=== PATIENT | female | born 1950 | race Caucasian/White ===

== ENCOUNTER → 2023-01-09 13:48 | Outpatient (BNVA) | payer MEDICARE, MEDICAID, SELFPAY | PROVIDERS: PCP Internal Medicine; Visit Provider Student in an Organized Health Care Education/Training Program | DX: M32.9 Systemic lupus erythematosus, unspecified (principal); M81.0 Age-related osteoporosis without current pathological fracture; D68.61 Antiphospholipid syndrome; M25.541 Pain in joints of right hand; Z79.899 Other long term (current) drug therapy | CPT/HCPCS: 99202 ==

== ENCOUNTER 2023-03-06 10:42 | Outpatient (REF) | payer MEDICARE, SELFPAY ==
[2023-03-06 11:12] LABS: MANUAL DIFF FLAG NO
[2023-03-06 11:34] LABS: Basophils Percent Auto 0.7 % (0-2); Eosinophils Absolute Auto 0.4 X10*3/uL (0.0-0.4); Eosinophils Percent Auto 7.5 % (0-4); Hematocrit 51.5 % (37.0-47.0); Hemoglobin 17.2 g/dl (12.0-16.0); Imm Gran Abs Auto 0.01 X10*3/uL (0.00-0.03); Imm Gran Pct Auto 0.2 % (0.0-0.4); Lymphocytes Absolute Auto 1.3 X10*3/uL (1.2-4.9); Lymphocytes Percent Auto 21.4 % (20-40); Mean Corpuscular HGB Conc 33.4 g/dl (31.0-35.0); Mean Corpuscular Hemoglobin 29.8 pg (27.0-33.0); Mean Corpuscular Volume 89.1 fL (80.0-98.0); Mean Platelet Volume 9.1 fL (9.4-12.3); Monocytes Absolute Auto 0.4 X10*3/uL (0.1-1.2); Monocytes Percent Auto 6.1 % (2-11); Neutrophils Absolute Auto 3.8 x10*3/uL (2.0-8.3); Neutrophils Percent Auto 64.1 % (45-73); Platelet Count 224 X10*3/uL (160-400); Red Blood Count 5.78 X10*6/uL (4.20-5.50); Red Cell Distribution Width 12.2 % (11.0-16.0); White Blood Count 5.9 X10*3/uL (4.8-10.8)
[2023-03-06 12:40] LABS: Alanine Aminotransferase 21 U/L (0-31); Albumin Level 3.5 g/dL (3.5-5.0); Alkaline Phosphatase 120 U/L (39-117); Anion Gap 12 (12-20); Aspartate Amino Transferase 25 U/L (5-31); Bilirubin Total 1.1 mg/dL (0.0-1.0); Blood Urea Nitrogen 13 mg/dL (9-16); Calcium 9.6 mg/dL (8.4-10.2); Carbon Dioxide 26 mmol/L (22-29); Chloride 108 mmol/L (96-108); Estimated Glomerular Filt Rate > 60; Glucose Random 101 mg/dL (60-115); Potassium 4.2 mmol/L (3.3-5.1); Sodium 142 mmol/L (135-145); Total Protein 6.5 g/dL (6.5-8.0); Uric Acid 4.8 mg/dL (2.4-5.7)
[2023-03-07 08:15] LABS: HBc Num1 0.06 S/CO (0.00-0.79); HBsAGNum1 0.44 S/CO (0.00-0.99); Hepatitis A Antibody IgM 0.16 Index (0-0.79); Hepatitis B Core Antibody Nonreactive (Nonreactive); Hepatitis B Surface Antigen Negative (Negative); ~HepC Num1 0.09 S/CO (0.00-0.79); ~Hepatitis A Antibody IgM Nonreactive (Nonreactive); ~Hepatitis B Surface Antibody NONREACTIVE (Nonreactive); ~Hepatitis C Antibody Nonreactive (Nonreactive)
[2023-03-07 11:04] LABS: Complement C3 106 mg/dL (83-193)
[2023-03-10 11:29] LABS: Cyclic Citrullinated Peptide <16 UNITS
[2023-03-10 21:03] LABS: Anti DNA DS Antibody 15 IU/mL; Antibody to SS-A Antigen <1.0 NEG AI (<1.0 NEG); Antibody to SS-B Antigen <1.0 NEG AI (<1.0 NEG); SM/Ribonucleoprotein Ab <1.0 NEG AI (<1.0 NEG); Smith Protein <1.0 NEG AI (<1.0 NEG)
[2023-03-11 22:38] LABS: Prot Elec - Albumin 4.1 g/dL (3.8-4.8); Prot Elec - Alpha1 0.3 g/dL (0.2-0.3); Prot Elec - Alpha2 0.7 g/dL (0.5-0.9); Prot Elec - Beta 1 0.4 g/dL (0.4-0.6); Prot Elec - Beta 2 0.2 g/dL (0.2-0.5); Prot Elec - Gamma 0.6 g/dL (0.8-1.7); Prot Elec - Total Protein 6.3 g/dL (6.1-8.1)
[2023-03-12 14:57] LABS: IgA 196 mg/dL (70-320); IgG 585 mg/dL (600-1540); IgM 45 mg/dL (50-300)
[2023-03-12 19:38] LABS: Cardiolipin IgG Ab <2.0 GPL-U/mL; Cardiolipin IgM Ab <2.0 MPL-U/mL
[2023-03-14 13:19] LABS: DNAds, Crithidia Antibody Positive (Negative)
[2023-03-14 13:23] LABS: Anti Nuclear Antibody Pattern Nuclear, Homogeneous; Anti Nuclear Antibody Screen POSITIVE (NEGATIVE)
[2023-03-15 08:18] LABS: Beta-2 Glycoprotein IgA <2.0 U/mL (<20.0); Beta-2 Glycoprotein IgG <2.0 U/mL (<20.0); Beta-2 Glycoprotein IgM <2.0 U/mL (<20.0)
== END 2023-03-06 10:43 | disposition home or self-care (01) ==
LOC: HO.LAB 10:42
PROVIDERS: Visit Provider Student in an Organized Health Care Education/Training Program
DX: D68.61 Antiphospholipid syndrome (principal); M32.9 Systemic lupus erythematosus, unspecified; M10.9 Gout, unspecified; M25.541 Pain in joints of right hand; Z11.59 Encounter for screening for other viral diseases; Z11.7 Encounter for testing for latent tuberculosis infection; Z72.89 Other problems related to lifestyle
CPT/HCPCS: 36415; 80053; 82784; 84165; 84550; 85025; 85597; 85598; 85613; 85652; 85670; 85730; 86038; 86039; 86140; 86146; 86147; 86160; 86200; 86225; 86235; 86255; 86334; 86431; 86481; 86704; 86706; 86709; 86803; 87340

== ENCOUNTER 2023-03-14 10:55 | Outpatient (REF) | payer MEDICARE, SELFPAY ==
--- NOTE | ~2023-03-14 | MM_ITS ---
EXAMINATION: BONE DENSITOMETRY CLINICAL INDICATION: Age-related osteoporosis without current pathological fracture. COMPARISON: This is the patient's baseline examination. TECHNIQUE: Using a [employer] DXA System (software version: 13.1) manufactured by [employer], dual-energy x-ray absorptiometry was performed of the lumbar spine and left forearm radius 33%. The images are of good technical quality. Summary results are attached. FINDINGS: AP SPINE L1-L2 (excluding L3 and L4): The data of L1-L4 has been changed to exclude the L3 and L4 vertebral bodies, because degenerative sclerosis at these levels may cause overestimation of lumbar spine density. BMD 1.737 g/cm2, Z-score 5.4, T-score 4.8, normal. RIGHT FEMUR, NECK: BMD 0.886 g/cm2, Z-score 0.1, T-score -1.1, osteopenia. RIGHT FEMUR, TOTAL: BMD 0.877 g/cm2, Z-score -0.1, T-score -1.0, normal. IDENTIFIED RISK FACTORS: Recurrent falls, history of fracture (adult). Early menopause, secondary osteoporosis, hysterectomy, bilateral oophorectomy, anticonvulsants, glucocorticoids (chronic). HISTORY OF FRACTURE: Other. Femur/hip. MEDICATIONS: Calcium supplements or multivitamin, vitamin D. MM/XR DEXA axial skeleton IMPRESSION: 1. DIAGNOSIS: Osteopenia based on the lowest T-score value of -1.1 in the femoral neck applying World Health Organization criteria. 2. 10-YEAR FRACTURE RISK PREDICTION, FRAX: Major osteoporotic fracture (clinical spine, forearm, hip or shoulder) 21.6%. Hip fracture 3.5%. 3. Treatment Recommendations: NOF guidelines recommend consideration for treatment in postmenopausal women and men age 50 and older presenting with the following: -A hip or vertebral (clinical or morphometric) fracture. -T-score less than or equal to -2.5 at the femoral neck or spine after appropriate evaluation to exclude secondary causes. -Low bone mass at the hip or spine and a 10-year fracture probability by FRAX of greater than or equal to 3% for hip fracture or greater than or equal to 20% for major osteoporotic fracture based on the [place] adapted WHO algorithm. 4. Other Recommendations: All treatment decisions require clinical judgment and consideration of individual patient factors, including patient preferences, comorbidities, previous drug use, risk factors not captured in the FRAX model (e.g. frailty, falls, vitamin D deficiency, increased bone turnover, interval significant decline in bone density) and possible under or overestimation of fracture risk by FRAX. Additional medical evaluation for secondary cause of low bone mineral density may be appropriate. FUTURE SCAN RECOMMENDATION: People with diagnosed cases of osteoporosis or at high risk for fracture should have regular bone mineral density tests. For patients eligible for Medicare, routine testing is allowed once every 2 years. The testing frequency can be increased to one year for patients who have rapidly progressing disease, those who are receiving or discontinuing medical therapy to restore bone mass, or have additional risk factors.
[2023-03-14 12:38] LABS: Appearance Urine Clear; Color Urine Yellow; Glucose Urine UA Negative (Negative); Leukocyte Esterase Urine Trace (Negative); Nitrite Urine Negative (Negative); PH 5.5 (5.0-9.0); UMIC TRIGGER UA YES; Urine Blood Small (1+) (Negative); Urine Ketones Negative (Negative); Urine Protein Negative (Neg-Trace)
[2023-03-14 12:40] LABS: Bacteria Urine None Seen (None Seen); Hyaline Casts Urine 0-2 /LPF (0-2); RBC Urine >20 /HPF (0-2); Squamous Epithelial Cell Urine 0-2 /HPF (0-2); WBC Urine 0-5 /HPF (0-5)
[2023-03-14 13:15] LABS: Creatinine Urine 121.81 mg/dL; Protein/Creatinine Ratio, Ur 0.07 (<0.2); Total Protein Urine Random 8 mg/dL (<12)
== END 2023-03-14 10:56 | disposition home or self-care (01) ==
LOC: HO.MAMMO 10:55
PROVIDERS: Visit Provider Student in an Organized Health Care Education/Training Program
DX: Z13.820 Encounter for screening for osteoporosis (principal); M81.0 Age-related osteoporosis without current pathological fracture; Z78.0 Asymptomatic menopausal state; D68.61 Antiphospholipid syndrome; M32.9 Systemic lupus erythematosus, unspecified
CPT/HCPCS: 77080; 81001; 84156

== ENCOUNTER 2023-04-10 13:54 | Outpatient (AMB) | payer MEDICARE, MEDICAID, SELFPAY ==
--- NOTE | 2023-04-10 13:56 | A.OFFVIS_ITS ---
Intake Vital Signs 04/10/23 13:57 Height 5 ft 6.5 in Weight 222 lb 10.67 oz BMI 35.4 BP 156/94 H Blood Pressure Location Rt brachial Position Sitting Pulse 91 Pulse Source Pulse Oximeter Temp 98.1 F Temp Source Skin Pulse Oximetry (%) 97 Intake Visit Reasons: SLE Intake Note: last 4 days swelling rash Ice House Supervisor Required: No Accompanied by: Self / Same As Patient Allergies azathioprine Allergy (Severe, Verified 04/10/23 13:59) Pancreatitis carbamazepine Adverse Reaction (Severe, Verified 04/10/23 13:59) Unknown diazepam [From Valium] Adverse Reaction (Severe, Verified 04/10/23 13:59) Anaphylaxis Iodinated Contrast Media Adverse Reaction (Severe, Verified 04/10/23 13:59) Angioedema, swelling, rash latex Adverse Reaction (Severe, Verified 04/10/23 13:59) Rash Penicillins Adverse Reaction (Severe, Verified 04/10/23 13:59) Anaphylaxis Sulfa (Sulfonamide Antibiotics) Adverse Reaction (Severe, Verified 04/10/23 13:59) Unknown azithromycin Adverse Reaction (Intermediate, Verified 04/10/23 13:59) Syncope, nausea gabapentin Adverse Reaction (Intermediate, Verified 04/10/23 13:59) Seizure hydrocodone Adverse Reaction (Intermediate, Verified 04/10/23 13:59) Tongue swelling hydromorphone [From Dilaudid] Adverse Reaction (Intermediate, Verified 04/10/23 13:59) Anaphylaxis leflunomide [From Arava] Adverse Reaction (Intermediate, Verified 04/10/23 13:59) Seizure cat pelt standardized allergenic ex Adverse Reaction (Unknown, Verified 04/10/23 13:59) Asthma Macrolide Antibiotics Adverse Reaction (Unknown, Unverified 04/10/23 13:59) Unknown phenytoin Adverse Reaction (Unknown, Verified 04/10/23 13:59) Angioedema Tetracyclines Adverse Reaction (Unknown, Verified 04/10/23 13:59) Unknown Benzodiazepines Adverse Reaction (Verified 04/10/23 13:59) Seizure codeine Adverse Reaction (Verified 04/10/23 13:59) bronchospasm oxycodone Adverse Reaction (Verified 04/10/23 13:59) Anaphylaxis leflunomide Adverse Reaction (Intermediate, Uncoded 04/10/23 14:20) seizures Medication List - Last Reconciled 04/10/23 by Katya Mandel MD allopurinol 100 mg PO DAILY amlodipine 0 mg PO hydroxychloroquine 400 mg PO DAILY levetiracetam 250 mg PO DAILY levothyroxine (Synthroid) 125 mcg PO DAILY losartan 100 mg PO DAILY meloxicam 15 mg PO DAILY HPI HPI Comments History of Present Illness Details 72-year-old female with SLE returns for follow-up. She states that over the last 45 days she has been having an itchy skin rash on her hands. Patient think of a precipitating factor. There has been no change in her environment. No new laundry detergent,.. Etc. she continues to have joint pains affecting her hands, wrists. She takes meloxicam 15 mg daily. Initial history: This is a 72-year-old female with complex past medical history who presents as a new patient. She used to follow-up with a truck driver supervisor in [place]. Patient states that she went to the hospital when she was 16 for a fever and she was initially diagnosed with leukemia, afterwards she was told that this was likely her initial manifestation of lupus. Patient states that she has diffuse body aches and rashes related to SLE. She was on prednisone and methotrexate for about 10 years and gained significant amount of weight. She had been on hydroxychloroquine consistently since 2002. She was tried on Imuran for a few weeks and had a severe reaction, had to go to the hospital. She also stated that she was diagnosed with ulcerative colitis and was on treatment for years. Patient also stated that she fractured her left hip. Patient had 4 pregnancies, 3 miscarriages and the 4th resulted in a normal delivery. Her child however had clubfeet. Patient has diffuse pain especially of her hands, elbows, shoulders, knees. She takes meloxicam daily. [facility] Medical History (Updated 04/11/23 @ 07:28 by Katya Mandel MD) Benign essential hypertension Brachial (cervical) neuritis Cervical cancer Degenerative joint disease Difficulty speaking Dysphagia Edema of extremity Gout Gouty arthropathy Hip pain History of malignant neoplasm of thyroid Hyperlipemia Idiopathic peripheral autonomic neuropathy Inflammatory disorder of jaw Joint pain of ankle and foot Kidney stone on right side Low back pain Lupus erythematosus Mononeuritis Mycosis Neck pain Noninfectious gastroenteritis Peripheral vascular disease Postoperative hypothyroidism Screening for viral disease Sprain of foot Status epilepticus, generalized convulsive Systemic lupus erythematosus Ulcerative colitis Surgical History H/O lithotripsy History of total hysterectomy with bilateral salpingo-oophorectomy (BSO) Hx of appendectomy Hx of tonsillectomy Hx of total thyroidectomy Status post total hip replacement, left Family History Mother Hyperlipidemia Thyroid cancer Maternal Grandmother Thyroid cancer Social History Household Members: None Alcohol intake: never Patient Tobacco Use Status: Never used Tobacco Current occupational status: retired Current occupation: used to work as a psychotherapist Review of Systems Musc Reports arthralgias Skin/Breast Reports pruritus and Reports rash Physical Exam Vital Signs: Last Vital Signs Temp 98.1 F 04/10/23 13:57 Pulse 91 04/10/23 13:57 BP 156/94 H 04/10/23 13:57 Pulse Ox 97 04/10/23 13:57 BMI result Body Mass Index 35.4 Const General: cooperative and healthy appearing Nutritional Appearance: obese Orientation/consciousness: patient oriented x3 Limitations: no limitations HEENT Head: Yes normocephalic and Yes atraumatic Resp Effort & Inspection: normal respiratory effort and able to speak in complete sentences Cardio Rate: regular rate GI Inspection: No distended Palpation (GI): Soft to palpation and nontender Skin Other: Multiple areas of skin excoriation were patient's scratched on hands Neuro General: patient oriented x3 Extrem Other: Osteoarthritic changes of both hands with prominent Heberden's and Theresa's nodes Right wrist pain with full flexion extension Right elbow pain with full flexion and extension Assessment & Plan Assessment & Plan (1) Systemic lupus erythematosus: Comment: SLE( characterized by inflammatory arthritis, positive dsDNA?) methotrexate for 8 years, stopped in 2016 out of concern for osteopenia Imuran caused pancreatitis.? 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 Doing fairly well overall with regards to her SLE. Continues to have a positive dsDNA. But there are no cytopenias, no evidence of nephritis. Continue hydroxychloroquine 4 on mg daily Labs before next visit in 3 months (2) Osteoporosis: Comment: DEXA 03/23 L-spine T-score 4.8 Right femoral neck T-score-1.1 Right femur total -1.0 Code(s): M81.0 - Age-related osteoporosis without current pathological fracture Qualifiers: Osteoporosis type: age-related Presence of current pathological fracture: with current pathological fracture Encounter type: initial encounter Qualified Code(s): M80.00XA - Age-related osteoporosis with current pathological fracture, unspecified site, initial encounter for fracture Plan: History of left hip fracture 2018, this is likely osteoporotic. as patient had been on steroids for decades. DEXA scan shows osteopenia. However given history of osteoporosis fracture. Patient needs to be started on antiresorptive agent. Discussed risks and benefits of alendronate. Start alendronate 70 mg once weekly. (3) Long-term use of hydroxychloroquine: Code(s): Z79.899 - Other director long term care (current) drug therapy Plan: Discussed risks of retinopathy with hydroxychloroquine. Follow-up with ophthalmology (4) Rash and nonspecific skin eruption: Code(s): R21 - Rash and other nonspecific skin eruption Plan: Itchy skin rash on her hands. Follow-up with Derm or allergy/immunology Plan I spent 26 minutes reviewing patient's chart, evaluating patient, ordering diagnostic workup, counseling patient and documenting in the chart Orders: Orders Ferritin 3 Months E83.19 - Other disorders of iron metabolism IRON PROFILE 3 Months E83.19 - Other disorders of iron metabolism Transferrin 3 Months E83.19 - Other disorders of iron metabolism Comprehensive Met. Panel 3 Months M32.9 - Systemic lupus erythematosus, unspecified C Reactive Protein 3 Months M32.9 - Systemic lupus erythematosus, unspecified Protein Creatinine Ratio, Ur 3 Months M32.9 - Systemic lupus erythematosus, unspecified Complete Blood Count Auto Diff 3 Months M32.9 - Systemic lupus erythematosus, unspecified Erythrocyte Sedimentation Rate 3 Months M32.9 - Systemic lupus erythematosus, unspecified Complement C3 3 Months M32.9 - Systemic lupus erythematosus, unspecified Complement C4 3 Months M32.9 - Systemic lupus erythematosus, unspecified Anti DNA DS Antibody 3 Months M32.9 - Systemic lupus erythematosus, unspecified DNA Double Stranded-Crithidia 3 Months M32.9 - Systemic lupus erythematosus, unspecified UA w Microscopic 3 Months M32.9 - Systemic lupus erythematosus, unspecified Medications: New hydroxychloroquine 400 mg (2 x 200 mg) PO DAILY 180 tabs 1RF alendronate 70 mg PO QWEEK 12 tabs 1RF alendronate Take 1 tab once weekly, 1st thing in the morning, with plenty of water (at least 6 oz) and remain upright for 30 minutes 70 mg PO QWEEK 12 tabs 1RF Coding Level of Care Code Est Pt Level 4 (57303) Diagnoses Systemic lupus erythematosus M32.19 Systemic lupus erythematosus type: unspecified Systemic lupus erythematosus organ involvement: other Osteoporosis M80.00XA Osteoporosis type: age-related Presence of current pathological fracture: with current pathological fracture Encounter type: initial encounter Long-term use of hydroxychloroquine Z79.899 Rash and nonspecific skin eruption R21
[2023-04-10 13:57] VITALS: BP 156/94; PULSE 91; TEMP 36.7; O2SAT 97; BMI 35.4
== END 2023-04-10 14:46 | disposition home or self-care (01) ==
PROVIDERS: PCP Internal Medicine; Visit Provider Student in an Organized Health Care Education/Training Program
DX: M32.19 Other organ or system involvement in systemic lupus erythematosus (principal); M80.00XA Age-related osteoporosis with current pathological fracture, unspecified site, initial encounter for fracture; Z79.899 Other long term (current) drug therapy; R21 Rash and other nonspecific skin eruption
CPT/HCPCS: 99214

== ENCOUNTER → 2023-04-10 13:54 | Outpatient (BNVA) | payer MEDICARE, MEDICAID, SELFPAY | PROVIDERS: Visit Provider Student in an Organized Health Care Education/Training Program | DX: M32.19 Other organ or system involvement in systemic lupus erythematosus (principal); R21 Rash and other nonspecific skin eruption; M80.052D Age-related osteoporosis with current pathological fracture, left femur, subsequent encounter for fracture with routine healing; Z79.899 Other long term (current) drug therapy | CPT/HCPCS: 99212 ==

== ENCOUNTER 2023-07-17 13:52 | Outpatient (AMB) | payer MEDICARE, MEDICAID, SELFPAY ==
[2023-07-17 13:53] VITALS: BP 146/76; PULSE 87; TEMP 36.6; O2SAT 98; BMI 33.6
--- NOTE | 2023-07-17 13:53 | A.OFFVIS_ITS ---
Intake Vital Signs 07/17/23 13:53 Height 5 ft 6.5 in Weight 211 lb 10.3 oz BMI 33.6 BP 146/76 H Blood Pressure Location Rt brachial Position Sitting Pulse 87 Pulse Source Pulse Oximeter Temp 97.8 F Temp Source Skin Pulse Oximetry (%) 98 Intake Visit Reasons: SLE Intake Note: Pt last seen 04/10/23, presents today for follow up and test results. Plaquenil 400mg daily, alendronate weekly. Radiologic Therapist Required: No Accompanied by: Self / Same As Patient Allergies azathioprine Allergy (Severe, Verified 07/17/23 14:00) Pancreatitis carbamazepine Adverse Reaction (Severe, Verified 07/17/23 14:00) Unknown diazepam [From Valium] Adverse Reaction (Severe, Verified 07/17/23 14:00) Anaphylaxis Iodinated Contrast Media Adverse Reaction (Severe, Verified 07/17/23 14:00) Angioedema, swelling, rash latex Adverse Reaction (Severe, Verified 07/17/23 14:00) Rash Penicillins Adverse Reaction (Severe, Verified 07/17/23 14:00) Anaphylaxis Sulfa (Sulfonamide Antibiotics) Adverse Reaction (Severe, Verified 07/17/23 14:00) Unknown azithromycin Adverse Reaction (Intermediate, Verified 07/17/23 14:00) Syncope, nausea gabapentin Adverse Reaction (Intermediate, Verified 07/17/23 14:00) Seizure hydrocodone Adverse Reaction (Intermediate, Verified 07/17/23 14:00) Tongue swelling hydromorphone [From Dilaudid] Adverse Reaction (Intermediate, Verified 07/17/23 14:00) Anaphylaxis leflunomide [From Arava] Adverse Reaction (Intermediate, Verified 07/17/23 14:00) Seizure cat pelt standardized allergenic ex Adverse Reaction (Unknown, Verified 07/17/23 14:00) Asthma Macrolide Antibiotics Adverse Reaction (Unknown, Unverified 07/17/23 14:00) Unknown phenytoin Adverse Reaction (Unknown, Verified 07/17/23 14:00) Angioedema Tetracyclines Adverse Reaction (Unknown, Verified 07/17/23 14:00) Unknown Benzodiazepines Adverse Reaction (Verified 07/17/23 14:00) Seizure codeine Adverse Reaction (Verified 07/17/23 14:00) bronchospasm oxycodone Adverse Reaction (Verified 07/17/23 14:00) Anaphylaxis leflunomide Adverse Reaction (Intermediate, Uncoded 07/17/23 14:00) seizures Medication List - Last Reconciled 07/17/23 by Katya Mandel MD alendronate 70 mg PO QWEEK allopurinol 100 mg PO DAILY amlodipine 0 mg PO hydroxychloroquine 400 mg (2 x 200 mg) PO DAILY levetiracetam 250 mg PO DAILY levothyroxine (Synthroid) 125 mcg PO DAILY losartan 100 mg PO DAILY meloxicam 15 mg PO DAILY PRN NS HPI HPI Comments History of Present Illness Details 73-year-old female with SLE returns for follow-up. She states that the dizziness seems to have improved on its own. She did not stop the alendronate. She currently does not feel that she has any side effects related to it. She continues to take meloxicam daily. She continues to have some stiffness and pain in her fingers. Especially the left hand. June of 2022 she had left kidney light a trip see. Last month she had lack kidney light a trip see however she has been having pain in her left flank that she believes is related to her kidney stones. She states that she is scheduled for an abdominal ultrasound to evaluate her left kidney days. States that she gets intermittent itchy rashes. States that the neuropathy and deformity of both feet, worse on the right is getting progressively worse and affect her ability to walk. Initial history: This is a 72-year-old female with complex past medical history who presents as a new patient. She used to follow-up with a detail assembler in [place]. Patient states that she went to the hospital when she was 16 for a fever and she was initially diagnosed with leukemia, afterwards she was told that this was likely her initial manifestation of lupus. Patient states that she has diffuse body aches and rashes related to SLE. She was on prednisone and methotrexate for about 10 years and gained significant amount of weight. She had been on hydroxychloroquine consistently since 2002. She was tried on Imuran for a few weeks and had a severe reaction, had to go to the hospital. She also stated that she was diagnosed with ulcerative colitis and was on treatment for years. Patient also stated that she fractured her left hip. Patient had 4 pregnancies, 3 miscarriages and the 4th resulted in a normal delivery. Her child however had clubfeet. Patient has diffuse pain especially of her hands, elbows, shoulders, knees. She takes meloxicam daily. [facility] Medical History Peripheral vascular disease Kidney stone on right side Ulcerative colitis Cervical cancer Difficulty speaking Noninfectious gastroenteritis Lupus erythematosus Mononeuritis Low back pain Sprain of foot Brachial (cervical) neuritis Gouty arthropathy Dysphagia Edema of extremity Joint pain of ankle and foot Hip pain Idiopathic peripheral autonomic neuropathy Gout Status epilepticus, generalized convulsive Hyperlipemia Degenerative joint disease Systemic lupus erythematosus Inflammatory disorder of jaw Neck pain Mycosis Benign essential hypertension History of malignant neoplasm of thyroid Postoperative hypothyroidism Surgical History History of kidney surgery H/O lithotripsy Status post total hip replacement, left Hx of total thyroidectomy History of total hysterectomy with bilateral salpingo-oophorectomy (BSO) Hx of appendectomy Hx of tonsillectomy Family History Mother Hyperlipidemia Thyroid cancer Maternal Grandmother Thyroid cancer Social History Household Members: None Alcohol intake: never Patient Tobacco Use Status: Never used Tobacco Current occupational status: retired Current occupation: used to work as a psychotherapist Female Reproductive History Menstrual Total pregnancies: 4 Number of Living Children: 1 Ab spontaneous: 3 Review of Systems ENT Reports dizziness Musc Reports arthralgias Skin/Breast Reports pruritus and Reports rash Neuro Reports dizziness Physical Exam Vital Signs: Last Vital Signs Temp 97.8 F 07/17/23 13:53 Pulse 87 07/17/23 13:53 BP 146/76 H 07/17/23 13:53 Pulse Ox 98 07/17/23 13:53 BMI result Body Mass Index 33.6 Const General: cooperative and healthy appearing Nutritional Appearance: obese Orientation/consciousness: patient oriented x3 Limitations: no limitations HEENT Head: Yes normocephalic and Yes atraumatic Resp Effort & Inspection: normal respiratory effort and able to speak in complete sentences Cardio Rate: regular rate GI Inspection: No distended Palpation (GI): Soft to palpation and nontender Neuro General: patient oriented x3 Extrem Other: Osteoarthritic changes of both hands with prominent Heberden's and Theresa's nodes Bilateral wrist pain with full flexion extension Tap mild puffiness of left hand MCPs and PIPs, mildly tender to palpation Right foot hammertoes,, are right foot bunion Assessment & Plan Assessment & Plan (1) Systemic lupus erythematosus: Comment: SLE( characterized by inflammatory arthritis, positive dsDNA?) methotrexate for 8 years, stopped in 2016 out of concern for osteopenia Imuran caused pancreatitis.? 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 Her SLE is fairly well controlled on hydroxychloroquine 400 mg daily . She continues to have minimally active synovitis, she has a positive dsDNA. There is no significant organ involvement. There is no cytopenias, no kidney involvement. She continues to take meloxicam 15 mg daily. We discussed Benlysta infusions. Patient will think about it. Continue hydroxychloroquine 400 on mg daily Labs before next visit in 3 months (2) Osteoporosis: Comment: DEXA 03/23 L-spine T-score 4.8 Right femoral neck T-score-1.1 Right femur total -1.0 Code(s): M81.0 - Age-related osteoporosis without current pathological fracture Qualifiers: Osteoporosis type: age-related Presence of current pathological fracture: with current pathological fracture Encounter type: initial encounter Qualified Code(s): M80.00XA - Age-related osteoporosis with current pathological fracture, unspecified site, initial encounter for fracture Plan: History of left hip fracture 2018, this is likely osteoporotic. as patient had been on steroids for decades. DEXA scan shows osteopenia. She has history of left hip fracture which is likely osteoporotic pain. Alendronate started . Well tolerated. Continue alendronate 70 mg weekly (3) Long-term use of hydroxychloroquine: Code(s): Z79.899 - Other usp (current) drug therapy Plan: Discussed risks of retinopathy with hydroxychloroquine. Patient does follow-up regularly with Dr. Lamar, she does not recall whether she had testing specific for hydroxychloroquine recently. Advised patient to reach out to her multiple slide operator Plan I spent 35 minutes reviewing patient's chart, evaluating patient, ordering diagnostic workup, counseling patient and documenting in the chart Orders: Orders Comprehensive Met. Panel 3 Months M32.9 - Systemic lupus erythematosus, unspecified C Reactive Protein 3 Months M32.9 - Systemic lupus erythematosus, unspecified Complement C4 3 Months M32.9 - Systemic lupus erythematosus, unspecified DNA Double Stranded-Crithidia 3 Months M32.9 - Systemic lupus erythematosus, unspecified Protein Creatinine Ratio, Ur 3 Months M32.9 - Systemic lupus erythematosus, unspecified Ferritin 3 Months E83.19 - Other disorders of iron metabolism IRON PROFILE 3 Months E83.19 - Other disorders of iron metabolism Transferrin 3 Months E83.19 - Other disorders of iron metabolism Complete Blood Count Auto Diff 3 Months M32.9 - Systemic lupus erythematosus, unspecified Erythrocyte Sedimentation Rate 3 Months M32.9 - Systemic lupus erythematosus, unspecified Anti DNA DS Antibody 3 Months M32.9 - Systemic lupus erythematosus, unspecified Complement C3 3 Months M32.9 - Systemic lupus erythematosus, unspecified UA w Microscopic 3 Months M32.9 - Systemic lupus erythematosus, unspecified Coding Level of Care Code Est Pt Level 4 (87966) Diagnoses Systemic lupus erythematosus with other organ involvement, unspecified SLE type M32.19 Systemic lupus erythematosus type: unspecified Systemic lupus erythematosus organ involvement: other Age-related osteoporosis with current pathological fracture, initial encounter M80.00XA Osteoporosis type: age-related Presence of current pathological fracture: with current pathological fracture Encounter type: initial encounter Long-term use of hydroxychloroquine Z79.899
== END 2023-07-17 14:47 | disposition home or self-care (01) ==
PROVIDERS: PCP Nurse Practitioner Adult Health; Visit Provider Student in an Organized Health Care Education/Training Program
DX: M32.19 Other organ or system involvement in systemic lupus erythematosus (principal); M80.00XA Age-related osteoporosis with current pathological fracture, unspecified site, initial encounter for fracture; Z79.899 Other long term (current) drug therapy
CPT/HCPCS: 99214

== ENCOUNTER → 2023-07-17 13:52 | Outpatient (BNVA) | payer MEDICARE, MEDICAID, SELFPAY | PROVIDERS: PCP Internal Medicine; Visit Provider Student in an Organized Health Care Education/Training Program | DX: M32.19 Other organ or system involvement in systemic lupus erythematosus (principal); M80.00XD Age-related osteoporosis with current pathological fracture, unspecified site, subsequent encounter for fracture with routine healing; Z79.899 Other long term (current) drug therapy | CPT/HCPCS: 99212 ==

== ENCOUNTER 2023-12-08 14:49 | Outpatient (AMB) | payer MEDICARE, MEDICAID, SELFPAY ==
[2023-12-08 14:54] VITALS: BP 118/66; PULSE 92; O2SAT 97; BMI 32.2
--- NOTE | 2023-12-08 14:54 | A.OFFVIS_ITS ---
Intake Vital Signs 12/08/23 14:54 Height 5 ft 6.5 in Weight 202 lb 13.204 oz BMI 32.2 BP 118/66 Blood Pressure Location Rt brachial Position Sitting Pulse 92 Pulse Source Pulse Oximeter Pulse Oximetry (%) 97 Intake Visit Reasons: sle/CM Intake Note: Patient last seen 07/17/23 presents today for follow up and test results. S/p R 2nd toe amputation 10/23.. today she reports 3rd toe R foot pain and is worried it'll nocturnist the same way. Health Equipment Servicer Required: No Allergies azathioprine Allergy (Severe, Verified 12/08/23 15:01) Pancreatitis carbamazepine Adverse Reaction (Severe, Verified 12/08/23 15:01) Unknown diazepam [From Valium] Adverse Reaction (Severe, Verified 12/08/23 15:01) Anaphylaxis Iodinated Contrast Media Adverse Reaction (Severe, Verified 12/08/23 15:01) Angioedema, swelling, rash latex Adverse Reaction (Severe, Verified 12/08/23 15:01) Rash Penicillins Adverse Reaction (Severe, Verified 12/08/23 15:01) Anaphylaxis Sulfa (Sulfonamide Antibiotics) Adverse Reaction (Severe, Verified 12/08/23 15:01) Unknown azithromycin Adverse Reaction (Intermediate, Verified 12/08/23 15:01) Syncope, nausea gabapentin Adverse Reaction (Intermediate, Verified 12/08/23 15:01) Seizure hydrocodone Adverse Reaction (Intermediate, Verified 12/08/23 15:01) Tongue swelling hydromorphone [From Dilaudid] Adverse Reaction (Intermediate, Verified 12/08/23 15:01) Anaphylaxis leflunomide [From Arava] Adverse Reaction (Intermediate, Verified 12/08/23 15:01) Seizure cat pelt standardized allergenic ex Adverse Reaction (Unknown, Verified 12/08/23 15:01) Asthma Macrolide Antibiotics Adverse Reaction (Unknown, Unverified 12/08/23 15:01) Unknown phenytoin Adverse Reaction (Unknown, Verified 12/08/23 15:01) Angioedema Tetracyclines Adverse Reaction (Unknown, Verified 12/08/23 15:01) Unknown Benzodiazepines Adverse Reaction (Verified 12/08/23 15:01) Seizure codeine Adverse Reaction (Verified 12/08/23 15:01) bronchospasm oxycodone Adverse Reaction (Verified 12/08/23 15:01) Anaphylaxis leflunomide Adverse Reaction (Intermediate, Uncoded 12/08/23 15:01) seizures Medication List - Last Reconciled 12/08/23 by Katya Mandel MD alendronate 70 mg PO QWEEK allopurinol 100 mg PO DAILY amlodipine 0 mg PO hydroxychloroquine 400 mg (2 x 200 mg) PO DAILY levetiracetam 250 mg PO DAILY levothyroxine (Synthroid) 150 mcg PO DAILY losartan 100 mg PO DAILY meloxicam 15 mg PO DAILY PRN NS HPI HPI Comments History of Present Illness Details 73-year-old female with SLE returns for follow-up. He states that beginning of October she started having black discoloration of her right 2nd toe, then she started having swelling, erythema and pus coming out of the right 2nd toe, she was eventually admitted to [facility] and had right 2nd toe amputation. She did not receive antibiotics. She did not recall whether she had any vascular studies. She does not know whether the surgical biopsy showed any signs of infection. She states that right 3rd toe is doing similar to the right 2nd toe. Having black discoloration she is worried that the same thing would happen to the right 3rd toe. She remains on hydroxychloroquine 400 mg daily, meloxicam 15 mg daily and alendronate 70 mg weekly Initial history: This is a 72-year-old female with complex past medical history who presents as a new patient. She used to follow-up with a technical training coordinator in [place]. Patient states that she went to the hospital when she was 16 for a fever and she was initially diagnosed with leukemia, afterwards she was told that this was likely her initial manifestation of lupus. Patient states that she has diffuse body aches and rashes related to SLE. She was on prednisone and methotrexate for about 10 years and gained significant amount of weight. She had been on hydroxychloroquine consistently since 2002. She was tried on Imuran for a few weeks and had a severe reaction, had to go to the hospital. She also stated that she was diagnosed with ulcerative colitis and was on treatment for years. Patient also stated that she fractured her left hip. Patient had 4 pregnancies, 3 miscarriages and the 4th resulted in a normal delivery. Her child however had clubfeet. Patient has diffuse pain especially of her hands, elbows, shoulders, knees. She takes meloxicam daily. [facility] Medical History (Updated 12/08/23 @ 15:43 by Katya Mandel MD) Peripheral vascular disease Vasculopathy Kidney stone on right side Ulcerative colitis Cervical cancer Difficulty speaking Noninfectious gastroenteritis Lupus erythematosus Mononeuritis Low back pain Sprain of foot Brachial (cervical) neuritis Gouty arthropathy Dysphagia Edema of extremity Joint pain of ankle and foot Hip pain Idiopathic peripheral autonomic neuropathy Gout Status epilepticus, generalized convulsive Hyperlipemia Degenerative joint disease Systemic lupus erythematosus Inflammatory disorder of jaw Neck pain Mycosis Benign essential hypertension History of malignant neoplasm of thyroid Postoperative hypothyroidism Surgical History History of kidney surgery H/O lithotripsy Status post total hip replacement, left Hx of total thyroidectomy History of total hysterectomy with bilateral salpingo-oophorectomy (BSO) Hx of appendectomy Hx of tonsillectomy Family History Mother Hyperlipidemia Thyroid cancer Maternal Grandmother Thyroid cancer Social History Household Members: None Alcohol intake: never Patient Tobacco Use Status: Never used Tobacco Current occupational status: retired Current occupation: used to work as a psychotherapist Review of Systems Skin/Breast Reports skin ulcer and Reports wounds Physical Exam Vital Signs: Last Vital Signs Pulse 92 12/08/23 14:54 BP 118/66 12/08/23 14:54 Pulse Ox 97 12/08/23 14:54 BMI result Body Mass Index 32.2 Const General: cooperative and healthy appearing Nutritional Appearance: obese Orientation/consciousness: patient oriented x3 Limitations: no limitations and ambulation with cane HEENT Head: Yes normocephalic and Yes atraumatic Resp Effort & Inspection: normal respiratory effort and able to speak in complete sentences Cardio Rate: regular rate GI Inspection: No distended Palpation (GI): Soft to palpation and nontender Neuro General: patient oriented x3 Extrem Other: Osteoarthritic changes of both hands with prominent Heberden's and Theresa's nodes mild puffiness of left hand MCPs and PIPs, mildly tender to palpation Right foot hammertoes,, right foot bunion S/p right 2nd toe amputation Dark discoloration of right 3rd toe Assessment & Plan Assessment & Plan (1) Systemic lupus erythematosus: Comment: SLE( characterized by inflammatory arthritis, positive dsDNA?) methotrexate for 8 years, stopped in 2016 out of concern for osteopenia Imuran caused pancreatitis.? 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 Her SLE is fairly well controlled on hydroxychloroquine 400 mg daily. There is no significant organ involvement. There is no cytopenias, no kidney involvement. She continues to take meloxicam 15 mg daily. Continue hydroxychloroquine 400 on mg daily Labs before next visit in 4 months (2) Osteoporosis: Comment: DEXA 03/23 L-spine T-score 4.8 Right femoral neck T-score-1.1 Right femur total -1.0 Code(s): M81.0 - Age-related osteoporosis without current pathological fracture Qualifiers: Osteoporosis type: age-related Presence of current pathological fracture: with current pathological fracture Encounter type: initial encounter Qualified Code(s): M80.00XA - Age-related osteoporosis with current pathological fracture, unspecified site, initial encounter for fracture Plan: History of left hip fracture 2018, this is likely osteoporotic. as patient had been on steroids for decades. DEXA scan shows osteopenia. She has history of left hip fracture which is likely osteoporotic pain. Alendronate started 04/2023. Well tolerated. Continue alendronate 70 mg weekly (3) Long-term use of hydroxychloroquine: Code(s): Z79.899 - Other ad terminal makeup operator (current) drug therapy Plan: Discussed risks of retinopathy with hydroxychloroquine. Patient does follow-up regularly with Dr. Lamar, she does not recall whether she had testing specific for hydroxychloroquine recently. Will attempt to request records from Dr. Lamar (4) Wound of foot: Code(s): S91.309A - Unspecified open wound, unspecified foot, initial encounter Plan: Patient is s/p right 2nd toe resection for osteomyelitis. It does not look like she received antibiotics. She does not recall having any vascular studies done. She is starting to have dark discoloration of right 3rd toe. I will request records from [facility]. Will attempt to retrieve bone biopsy report Referred patient to vascular surgery and wound care (5) Peripheral vascular disease: Code(s): I73.9 - Peripheral vascular disease, unspecified Plan: Known history of peripheral vascular disease. Referred to vascular surgeon Plan I spent 35 minutes reviewing patient's chart, evaluating patient, ordering diagnostic workup, counseling patient and documenting in the chart Orders: Orders Anti DNA DS Antibody 4 Months M32.19 - Other organ or system involvement in systemic lupus erythematosus C Reactive Protein 4 Months M32.19 - Other organ or system involvement in systemic lupus erythematosus Complement C3 4 Months M32.19 - Other organ or system involvement in systemic lupus erythematosus Complement C4 4 Months M32.19 - Other organ or system involvement in systemic lupus erythematosus Erythrocyte Sedimentation Rate 4 Months M32.19 - Other organ or system involvement in systemic lupus erythematosus DNA Double Stranded-Crithidia 4 Months M32.19 - Other organ or system involvement in systemic lupus erythematosus Protein Creatinine Ratio, Ur 4 Months M32.19 - Other organ or system involvement in systemic lupus erythematosus UA w Microscopic 4 Months M32.19 - Other organ or system involvement in systemic lupus erythematosus Complete Blood Count Auto Diff 4 Months M32.19 - Other organ or system involvement in systemic lupus erythematosus Comprehensive Met. Panel 4 Months M32.19 - Other organ or system involvement in systemic lupus erythematosus Referrals Wound Care Referral S91.309A - Unspecified open wound, unspecified foot, initial encounter Vascular Surgery Referral I99.9 - Unspecified disorder of circulatory system Coding Level of Care Code Est Pt Level 5 (42164) Diagnoses Systemic lupus erythematosus with other organ involvement, unspecified SLE type M32.19 Systemic lupus erythematosus type: unspecified Systemic lupus erythematosus organ involvement: other Age-related osteoporosis with current pathological fracture, initial encounter M80.00XA Osteoporosis type: age-related Presence of current pathological fracture: with current pathological fracture Encounter type: initial encounter Long-term use of hydroxychloroquine Z79.899 Wound of foot S91.309A Peripheral vascular disease I73.9
== END 2023-12-08 15:42 | disposition home or self-care (01) ==
PROVIDERS: PCP Nurse Practitioner Adult Health; Visit Provider Student in an Organized Health Care Education/Training Program
DX: M32.19 Other organ or system involvement in systemic lupus erythematosus (principal); M80.00XA Age-related osteoporosis with current pathological fracture, unspecified site, initial encounter for fracture; Z79.899 Other long term (current) drug therapy; S91.309A Unspecified open wound, unspecified foot, initial encounter; I73.9 Peripheral vascular disease, unspecified
CPT/HCPCS: 99214

== ENCOUNTER → 2023-12-08 14:49 | Outpatient (BNVA) | payer MEDICARE, MEDICAID, SELFPAY | PROVIDERS: PCP Nurse Practitioner Adult Health; Visit Provider Student in an Organized Health Care Education/Training Program | DX: M32.19 Other organ or system involvement in systemic lupus erythematosus (principal); M80.00XD Age-related osteoporosis with current pathological fracture, unspecified site, subsequent encounter for fracture with routine healing; S91.309D Unspecified open wound, unspecified foot, subsequent encounter; I73.9 Peripheral vascular disease, unspecified; Z79.899 Other long term (current) drug therapy | CPT/HCPCS: 99212 ==

== ENCOUNTER 2023-12-23 12:57 | Outpatient (AMB) | payer MEDICARE, MEDICAID, SELFPAY ==
--- NOTE | 2023-12-23 13:00 | MHC.OFFVIS ---
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 Pt states that she has osteomyelitis and was put on a 5 day course of Antibiotics. Accompanied by: Self / Same As Patient Allergies azathioprine Allergy (Severe, Verified 12/23/23 13:07) Pancreatitis carbamazepine Adverse Reaction (Severe, Verified 12/23/23 13:07) Unknown diazepam [From Valium] Adverse Reaction (Severe, Verified 12/23/23 13:07) Anaphylaxis Iodinated Contrast Media Adverse Reaction (Severe, Verified 12/23/23 13:07) Angioedema, swelling, rash latex Adverse Reaction (Severe, Verified 12/23/23 13:07) Rash Penicillins Adverse Reaction (Severe, Verified 12/23/23 13:07) Anaphylaxis Sulfa (Sulfonamide Antibiotics) Adverse Reaction (Severe, Verified 12/23/23 13:07) Unknown azithromycin Adverse Reaction (Intermediate, Verified 12/23/23 13:07) Syncope, nausea gabapentin Adverse Reaction (Intermediate, Verified 12/23/23 13:07) Seizure hydrocodone Adverse Reaction (Intermediate, Verified 12/23/23 13:07) Tongue swelling hydromorphone [From Dilaudid] Adverse Reaction (Intermediate, Verified 12/23/23 13:07) Anaphylaxis leflunomide [From Arava] Adverse Reaction (Intermediate, Verified 12/23/23 13:07) Seizure cat pelt standardized allergenic ex Adverse Reaction (Unknown, Verified 12/23/23 13:07) Asthma Macrolide Antibiotics Adverse Reaction (Unknown, Unverified 12/23/23 13:07) Unknown phenytoin Adverse Reaction (Unknown, Verified 12/23/23 13:07) Angioedema Tetracyclines Adverse Reaction (Unknown, Verified 12/23/23 13:07) Unknown Benzodiazepines Adverse Reaction (Verified 12/23/23 13:07) Seizure codeine Adverse Reaction (Verified 12/23/23 13:07) bronchospasm oxycodone Adverse Reaction (Verified 12/23/23 13:07) Anaphylaxis leflunomide Adverse Reaction (Intermediate, Uncoded 12/23/23 13:07) seizures HPI HPI DOUGH MIXER OPERATOR: Details: Very complex 73-year-old female presents for evaluation regarding right 2nd toe amputation. She reports that this was done at [facility]. It was subsequently amputated. She has been quite concerned as she has not been on antibiotics since that time. That being said the wound has gone on to heal. She does have a history of lupus along with Charcot Madhuri tooth. She has chronic pain throughout her body and reports S fair amount of foot pain. She now presents to us for vascular evaluation. [facility] Medical History Peripheral vascular disease Vasculopathy Kidney stone on right side Ulcerative colitis Cervical cancer Difficulty speaking Noninfectious gastroenteritis Lupus erythematosus Mononeuritis Low back pain Sprain of foot Brachial (cervical) neuritis Gouty arthropathy Dysphagia Edema of extremity Joint pain of ankle and foot Hip pain Idiopathic peripheral autonomic neuropathy Gout Status epilepticus, generalized convulsive Hyperlipemia Degenerative joint disease Systemic lupus erythematosus Inflammatory disorder of jaw Neck pain Mycosis Benign essential hypertension History of malignant neoplasm of thyroid Postoperative hypothyroidism Surgical History History of kidney surgery H/O lithotripsy Status post total hip replacement, left Hx of total thyroidectomy History of total hysterectomy with bilateral salpingo-oophorectomy (BSO) Hx of appendectomy Hx of tonsillectomy Family History Mother Hyperlipidemia Thyroid cancer Maternal Grandmother Thyroid cancer Social History Household Members: None Alcohol intake: never Patient Tobacco Use Status: Never used Tobacco Current occupational status: retired Current occupation: used to work as a psychotherapist Review of Systems Const All systems reviewed & are unremarkable except as noted in HPI and below Reports no additional complaints ENT Reports Normal hearing present Card Denies chest pain, Denies chest pain at rest, Denies chest pain with activity and Denies pedal edema Resp Denies cough GI Denies abdominal pain Musc Denies abnormal gait, Denies muscle cramps and Denies radiating pain into limb Skin/Breast Denies skin ulcer and Denies wounds Neuro Reports Normal hearing present and Denies abnormal gait Psych Reports no additional complaints Physical Exam Vital Signs: BMI result Body Mass Index 32.1 Const General: cooperative, healthy appearing and comfortable Orientation/consciousness: oriented to person, oriented to place and oriented to time HEENT Head: Yes normal to inspection Neck Neck: Yes normal visual inspection Carotids: no bruits Chest Chest palpation & inspection: normal inspection of the chest Resp Effort & Inspection: normal respiratory effort and able to speak in complete sentences Auscultation: clear to auscultation bilaterally, no crackles, no rales, no rhonchi and no wheezes Cardio Other: Bilateral DP signals Rate: regular rate Rhythm: regular rhythm Heart sounds: S1 normal heart sound present and S2 normal heart sound present Bruits: no carotid bruits Peripheral pulses: Peripheral pulses 2+ throughout GI Inspection: Yes normal to inspection Skin Other: Toe amputation site has gone on to heal Wounds: no wounds Hair: normal Neuro General: oriented to person, oriented to place and oriented to time Cranial nerves: Yes CN's II-XII intact bilaterally and Yes Normal hearing present Cognition (Neuro): normal cognition Motor exam (neuro): 5/5 motor strength present throughout Extrem Other: venous exam: No significant superficial varicosities or spider telangiectasias, minimal edema General: No clubbing, No cyanosis and No edema Psych Appearance: grossly normal Mental Status: mental status grossly normal Speech and movement: Normal speech and movement present Assessment & Plan Assessment & Plan (1) PAD (peripheral artery disease): Code(s): I73.9 - Peripheral vascular disease, unspecified Category: Medical Plan: In short there is concern that the patient may have an element of peripheral vascular disease as I am not able to palpate DP or PT pulses. That being said her toe amputation site appears to be doing well it has gone on to heal. If there was underlying osteomyelitis it would not heal as well as it did. I have taken the liberty of ordering noninvasive arterial ultrasound and she will follow up with us after testing. I did provide her a fair amount of reassurance that at the current time her foot status is stable. The pain may be met multifactorial as there may be a significant neurogenic component to this as well. Patient will follow up with us after testing. Thank you for allowing us to assist in her care. Orders: Orders US arterial duplex LE BI 1 Week I73.9 - Peripheral vascular disease, unspecified Coding Level of Care Code Est Pt Level 4 (68680) Diagnoses PAD (peripheral artery disease) I73.9
[2023-12-23 13:01] VITALS: BMI 32.1
== END 2023-12-23 13:43 | disposition home or self-care (01) ==
PROVIDERS: PCP Nurse Practitioner Adult Health; Visit Provider Surgery Vascular Surgery
DX: I73.9 Peripheral vascular disease, unspecified (principal)
CPT/HCPCS: 99213

== ENCOUNTER → 2023-12-23 12:57 | Outpatient (BNVA) | payer MEDICARE, MEDICAID, SELFPAY | PROVIDERS: PCP Nurse Practitioner Adult Health; Visit Provider Surgery Vascular Surgery | DX: I73.9 Peripheral vascular disease, unspecified (principal); Z89.421 Acquired absence of other right toe(s) | CPT/HCPCS: 99212 ==

== ENCOUNTER 2023-12-31 14:23 | Outpatient (REF) | payer MEDICARE, MEDICAID, SELFPAY ==
--- NOTE | ~2023-12-31 | US_ITS ---
EXAMINATION: US arterial duplex LE BI, US REJI complete CLINICAL INFORMATION: Peripheral vascular disease, unspecified COMPARISON: None TECHNIQUE: Ankle pulse volume recordings, ankle pressure measurements and ankle brachial indices were obtained of the lower extremity arterial system bilaterally in addition to duplex Doppler techniques with wave form analysis and measurement of velocities in the common femoral, profunda femoral, superficial femoral, popliteal, tibial and peroneal arteries. The study was performed only at rest. FINDINGS: Mild calcified plaque seen throughout the bilateral lower extremities. RIGHT LE. THE RIGHT ANKLE-BRACHIAL INDEX IS: 1.06 2. SEGMENTAL PRESSURES (mmHg): Ankle: PT 176, DP 200 3. PVR WAVEFORMS: Ankle: Abnormal 4. DIRECT DUPLEX: Common femoral artery: 77 cm/s, biphasic Profunda femoris artery: 46 cm/s, biphasic Superficial femoral artery (proximal): 64 cm/s, multiphasic Superficial femoral artery (mid): 64 cm/s, multiphasic Superficial femoral artery (distal): 91 cm/s, Multiphasic Proximal Popliteal artery: 47 cm/s, multiphasic Distal popliteal artery: 52 cm/s, Multiphasic Mid posterior tibial artery: 46 cm/s, biphasic Peroneal artery: 55 cm/s, biphasic Dorsalis pedis artery: 30 cm/sec, monophasic Anterior tibial artery: 84 cm/sec, triphasic LEFT LE. THE LEFT ANKLE-BRACHIAL INDEX IS: 1.06 (higher of the DP/PT) 2. SEGMENTAL PRESSURES: Ankle: PT 200, DP 200 3. PVR WAVEFORMS: Ankle: Abnormal 4. DIRECT DUPLEX: Common femoral artery: 68 cm/s, multiphasic Profunda femoris artery: 47 cm/s, biphasic Superficial femoral artery (proximal): 77 cm/s, multiphasic Superficial femoral artery (mid): 67 cm/s, Multiphasic Superficial femoral artery (distal): 62 cm/s, Multiphasic Proximal Popliteal artery: 58 cm/s, Multiphasic Distal popliteal artery: 54 cm/s, Multiphasic Proximal posterior tibial artery: 26 cm/s, biphasic Peroneal artery: 80 cm/s, biphasic Dorsalis pedis artery: 10 cm/sec, monophasic Anterior tibial artery: 44 cm/sec, biphasic US/US arterial duplex LE BI IMPRESSION: Normal ABIs bilaterally are likely artifactual related to calcified vessels. Mild calcific plaque is noted throughout the bilateral lower arteries. No evidence of hemodynamically significant stenosis in the bilateral lower extremities.
== END 2023-12-31 14:24 | disposition home or self-care (01) ==
LOC: HO.US 14:23
PROVIDERS: PCP Family Medicine; Visit Provider Surgery Vascular Surgery
DX: I73.9 Peripheral vascular disease, unspecified (principal)
CPT/HCPCS: 93923; 93925

== ENCOUNTER 2024-01-20 08:51 | Outpatient (AMB) | payer MEDICARE, MEDICAID, SELFPAY ==
--- NOTE | 2024-01-20 09:00 | MHC.OFFVIS ---
Vital Signs 01/20/24 09:01 Height 5 ft 6.5 in Weight 202 lb BMI 32.1 Intake Visit Reasons: f/u s/p ART U/S 12/31/23 Intake Note: follow up Arterial US 12/31/23 s/p Right foot 2nd toe amp @ [facility] by Dr. Lopez, concerned about pain when stepping on right foot, states she has zapping from bottom of plantar area up to the knee. States she is using crutch for stability. Accompanied by: Self / Same As Patient Allergies azathioprine Allergy (Severe, Verified 01/20/24 09:08) Pancreatitis carbamazepine Adverse Reaction (Severe, Verified 01/20/24 09:08) Unknown diazepam [From Valium] Adverse Reaction (Severe, Verified 01/20/24 09:08) Anaphylaxis Iodinated Contrast Media Adverse Reaction (Severe, Verified 01/20/24 09:08) Angioedema, swelling, rash latex Adverse Reaction (Severe, Verified 01/20/24 09:08) Rash Penicillins Adverse Reaction (Severe, Verified 01/20/24 09:08) Anaphylaxis Sulfa (Sulfonamide Antibiotics) Adverse Reaction (Severe, Verified 01/20/24 09:08) Unknown azithromycin Adverse Reaction (Intermediate, Verified 01/20/24 09:08) Syncope, nausea gabapentin Adverse Reaction (Intermediate, Verified 01/20/24 09:08) Seizure hydrocodone Adverse Reaction (Intermediate, Verified 01/20/24 09:08) Tongue swelling hydromorphone [From Dilaudid] Adverse Reaction (Intermediate, Verified 01/20/24 09:08) Anaphylaxis leflunomide [From Arava] Adverse Reaction (Intermediate, Verified 01/20/24 09:08) Seizure cat pelt standardized allergenic ex Adverse Reaction (Unknown, Verified 01/20/24 09:08) Asthma Macrolide Antibiotics Adverse Reaction (Unknown, Unverified 01/20/24 09:08) Unknown phenytoin Adverse Reaction (Unknown, Verified 01/20/24 09:08) Angioedema Tetracyclines Adverse Reaction (Unknown, Verified 01/20/24 09:08) Unknown Benzodiazepines Adverse Reaction (Verified 01/20/24 09:08) Seizure codeine Adverse Reaction (Verified 01/20/24 09:08) bronchospasm oxycodone Adverse Reaction (Verified 01/20/24 09:08) Anaphylaxis leflunomide Adverse Reaction (Intermediate, Uncoded 01/20/24 09:08) seizures HPI HPI f/u s/p ART U/S 12/31/23: Details: Very complex 73-year-old female presents for follow-up regarding noninvasive arterial testing. She has undergone right 2nd toe amputation at [facility]. She does have a history of lupus along with Charcot Madhuri tooth. She does have chronic pain issues as well. She is actually being seen by Podiatry at [facility] by Dr. Curt Umanzor. She now presents to us for follow-up with noninvasive arterial testing. [facility] Medical History Peripheral vascular disease Vasculopathy Kidney stone on right side Ulcerative colitis Cervical cancer Difficulty speaking Noninfectious gastroenteritis Lupus erythematosus Mononeuritis Low back pain Sprain of foot Brachial (cervical) neuritis Gouty arthropathy Dysphagia Edema of extremity Joint pain of ankle and foot Hip pain Idiopathic peripheral autonomic neuropathy Gout Status epilepticus, generalized convulsive Hyperlipemia Degenerative joint disease Systemic lupus erythematosus Inflammatory disorder of jaw Neck pain Mycosis Benign essential hypertension History of malignant neoplasm of thyroid Postoperative hypothyroidism Surgical History History of kidney surgery H/O lithotripsy Status post total hip replacement, left Hx of total thyroidectomy History of total hysterectomy with bilateral salpingo-oophorectomy (BSO) Hx of appendectomy Hx of tonsillectomy Family History Mother Hyperlipidemia Thyroid cancer Maternal Grandmother Thyroid cancer Social History Household Members: None Alcohol intake: never Patient Tobacco Use Status: Never used Tobacco Current occupational status: retired Current occupation: used to work as a psychotherapist Review of Systems Const All systems reviewed & are unremarkable except as noted in HPI and below Reports no additional complaints ENT Reports Normal hearing present Card Denies chest pain, Denies chest pain at rest, Denies chest pain with activity and Denies pedal edema Resp Denies cough GI Denies abdominal pain Musc Denies abnormal gait, Denies muscle cramps and Denies radiating pain into limb Skin/Breast Denies skin ulcer and Denies wounds Neuro Reports Normal hearing present and Denies abnormal gait Psych Reports no additional complaints Physical Exam Vital Signs: BMI result Body Mass Index 32.1 Const General: cooperative, healthy appearing and comfortable Orientation/consciousness: oriented to person, oriented to place and oriented to time HEENT Head: Yes normal to inspection Neck Neck: Yes normal visual inspection Carotids: no bruits Chest Chest palpation & inspection: normal inspection of the chest Resp Effort & Inspection: normal respiratory effort and able to speak in complete sentences Auscultation: clear to auscultation bilaterally, no crackles, no rales, no rhonchi and no wheezes Cardio Rate: regular rate Rhythm: regular rhythm Heart sounds: S1 normal heart sound present and S2 normal heart sound present Bruits: no carotid bruits Peripheral pulses: Peripheral pulses 2+ throughout GI Inspection: Yes normal to inspection Skin Wounds: no wounds Hair: normal Neuro General: oriented to person, oriented to place and oriented to time Cranial nerves: Yes CN's II-XII intact bilaterally and Yes Normal hearing present Cognition (Neuro): normal cognition Motor exam (neuro): 5/5 motor strength present throughout Extrem Other: venous exam: No significant superficial varicosities or spider telangiectasias, minimal edema General: No clubbing, No cyanosis and No edema Psych Appearance: grossly normal Mental Status: mental status grossly normal Speech and movement: Normal speech and movement present Results Reviewed Results Reviewed: Noninvasive arterial testing dated 12/31/2023 demonstrates REJI on the right of 1.06 and on the left of 1.06 with multi phasic waveforms to both feet. Written report and images were reviewed. Assessment & Plan Assessment & Plan (1) PAD (peripheral artery disease): Code(s): I73.9 - Peripheral vascular disease, unspecified Category: Medical Plan: In short patient is stable from a peripheral vascular standpoint. Would continue care per Podiatry. She will follow up with us on an as-needed basis. Thank you for allowing us to assist in her care. Coding Level of Care Code Est Pt Level 4 (80558) Diagnoses PAD (peripheral artery disease) I73.9
[2024-01-20 09:01] VITALS: BMI 32.1
== END 2024-01-20 09:44 | disposition home or self-care (01) ==
PROVIDERS: PCP Family Medicine; Visit Provider Surgery Vascular Surgery
DX: I73.9 Peripheral vascular disease, unspecified (principal)
CPT/HCPCS: 99213

== ENCOUNTER → 2024-01-20 08:51 | Outpatient (BNVA) | payer MEDICARE, MEDICAID, SELFPAY | PROVIDERS: PCP Family Medicine; Visit Provider Surgery Vascular Surgery | DX: I73.9 Peripheral vascular disease, unspecified (principal) | CPT/HCPCS: 99212 ==

== ENCOUNTER 2024-04-08 10:26 | Outpatient (AMB) | payer MEDICARE, MEDICAID, SELFPAY ==
--- NOTE | 2024-04-08 10:27 | A.OFFVIS_ITS ---
Vital Signs 04/08/24 10:33 Height 5 ft 6.5 in Weight 198 lb 10.184 oz BMI 31.6 BP 118/72 Blood Pressure Location Rt brachial Position Sitting Pulse 84 Pulse Source Pulse Oximeter Pulse Oximetry (%) 98 Oxygen Delivery Method Room Air Intake Visit Reasons: SLE/LM Intake Note: Patient presents for SLE. Allergies azathioprine Allergy (Severe, Verified 04/08/24 10:30) Pancreatitis carbamazepine Adverse Reaction (Severe, Verified 04/08/24 10:30) Unknown diazepam [From Valium] Adverse Reaction (Severe, Verified 04/08/24 10:30) Anaphylaxis Iodinated Contrast Media Adverse Reaction (Severe, Verified 04/08/24 10:30) Angioedema, swelling, rash latex Adverse Reaction (Severe, Verified 04/08/24 10:30) Rash Penicillins Adverse Reaction (Severe, Verified 04/08/24 10:30) Anaphylaxis Sulfa (Sulfonamide Antibiotics) Adverse Reaction (Severe, Verified 04/08/24 10:30) Unknown azithromycin Adverse Reaction (Intermediate, Verified 04/08/24 10:30) Syncope, nausea duloxetine [From Cymbalta] Adverse Reaction (Intermediate, Verified 04/08/24 12:43) Dizziness gabapentin Adverse Reaction (Intermediate, Verified 04/08/24 10:30) Seizure hydrocodone Adverse Reaction (Intermediate, Verified 04/08/24 10:30) Tongue swelling hydromorphone [From Dilaudid] Adverse Reaction (Intermediate, Verified 04/08/24 10:30) Anaphylaxis leflunomide [From Arava] Adverse Reaction (Intermediate, Verified 04/08/24 10:30) Seizure cat pelt standardized allergenic ex Adverse Reaction (Unknown, Verified 04/08/24 10:30) Asthma Macrolide Antibiotics Adverse Reaction (Unknown, Verified 04/08/24 10:30) Unknown phenytoin Adverse Reaction (Unknown, Verified 04/08/24 10:30) Angioedema Tetracyclines Adverse Reaction (Unknown, Verified 04/08/24 10:30) Unknown Benzodiazepines Adverse Reaction (Verified 04/08/24 10:30) Seizure codeine Adverse Reaction (Verified 04/08/24 10:30) bronchospasm oxycodone Adverse Reaction (Verified 04/08/24 10:30) Anaphylaxis leflunomide Adverse Reaction (Intermediate, Uncoded 01/20/24 09:08) seizures Medication List - Last Reconciled 04/08/24 by Katya Mandel MD alendronate 70 mg PO QWEEK allopurinol 100 mg PO DAILY amlodipine 0 mg PO hydroxychloroquine 400 mg (2 x 200 mg) PO DAILY levetiracetam 250 mg PO DAILY levothyroxine (Synthroid) 150 mcg PO DAILY levothyroxine (Synthroid) 150 mcg PO DAILY losartan 100 mg PO DAILY meloxicam 15 mg PO DAILY PRN NS HPI Comments Details: 73-year-old female with SLE returns for follow-up. She continues to have problems with her right foot toes. Continues to have pain in her right foot that radiates up her right knee. She was recently evaluated by a supervisor brake repair and referred to another surgeon. She states that she may need other amputations. She was evaluated by vascular surgeon and no vascular insufficiency requiring intervention was found. He has been getting frequent UTIs and she had multiple urine samples but she was told they were contaminated. She has not had any rashes recently. Has not had any significant joint pain or swelling in her hands or feet. Does get bilateral lower thoracic back pain intermittently radiates outwards. She wants started by duloxetine 20 mg daily by her PCP, she stopped it as it was causing significant dizziness Initial history: This is a 72-year-old female with complex past medical history who presents as a new patient. She used to follow-up with a traffic administrator in [place]. Patient states that she went to the hospital when she was 16 for a fever and she was initially diagnosed with leukemia, afterwards she was told that this was likely her initial manifestation of lupus. Patient states that she has diffuse body aches and rashes related to SLE. She was on prednisone and methotrexate for about 10 years and gained significant amount of weight. She had been on hydroxychloroquine consistently since 2002. She was tried on Imuran for a few weeks and had a severe reaction, had to go to the hospital. She also stated that she was diagnosed with ulcerative colitis and was on treatment for years. Patient also stated that she fractured her left hip. Patient had 4 pregnancies, 3 miscarriages and the 4th resulted in a normal delivery. Her child however had clubfeet. Patient has diffuse pain especially of her hands, elbows, shoulders, knees. She takes meloxicam daily. [facility] Medical History Peripheral vascular disease Vasculopathy Kidney stone on right side Ulcerative colitis Cervical cancer Difficulty speaking Noninfectious gastroenteritis Lupus erythematosus Mononeuritis Low back pain Sprain of foot Brachial (cervical) neuritis Gouty arthropathy Dysphagia Edema of extremity Joint pain of ankle and foot Hip pain Idiopathic peripheral autonomic neuropathy Gout Status epilepticus, generalized convulsive Hyperlipemia Degenerative joint disease Systemic lupus erythematosus Inflammatory disorder of jaw Neck pain Mycosis Benign essential hypertension History of malignant neoplasm of thyroid Postoperative hypothyroidism Surgical History History of foot surgery History of kidney surgery H/O lithotripsy Status post total hip replacement, left Hx of total thyroidectomy History of total hysterectomy with bilateral salpingo-oophorectomy (BSO) Hx of appendectomy Hx of tonsillectomy Family History Mother Hyperlipidemia Thyroid cancer Maternal Grandmother Thyroid cancer Social History Household Members: None Alcohol intake: never Patient Tobacco Use Status: Never used Tobacco Current occupational status: retired Current occupation: used to work as a psychotherapist Female Reproductive History Menstrual Total pregnancies: 4 Number of Living Children: 1 Ab spontaneous: 3 Review of Systems Musc Reports back pain, Reports arthralgias and Reports radiating pain into limb Skin/Breast Reports wounds Physical Exam Vital Signs: Last Vital Signs Pulse 84 04/08/24 10:33 BP 118/72 04/08/24 10:33 Pulse Ox 98 04/08/24 10:33 Oxygen Delivery Method Room Air 04/08/24 10:33 BMI result Body Mass Index 31.6 Const General: cooperative and healthy appearing Nutritional Appearance: obese Orientation/consciousness: patient oriented x3 Limitations: no limitations and ambulation with cane HEENT Head: Yes normocephalic and Yes atraumatic Resp Effort & Inspection: normal respiratory effort and able to speak in complete sentences Cardio Rate: regular rate GI Inspection: No distended Palpation (GI): Soft to palpation and nontender Neuro General: patient oriented x3 Extrem Other: Osteoarthritic changes of both hands with prominent Heberden's and Theresa's nodes With no active synovitis today Right foot hammertoes,, right foot bunion S/p right 2nd toe amputation Assessment & Plan Assessment & Plan (1) Systemic lupus erythematosus: Comment: SLE( characterized by inflammatory arthritis, positive dsDNA?) methotrexate for 8 years, stopped in 2016 out of concern for osteopenia Imuran caused pancreatitis.? 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 Her SLE is fairly well controlled on hydroxychloroquine 400 mg daily. There is no significant organ involvement. There is no cytopenias, no kidney involvement. She continues to take meloxicam 15 mg daily. Continue hydroxychloroquine 400 on mg daily Labs before next visit in 4 months (2) Osteoporosis: Comment: DEXA 03/23 L-spine T-score 4.8 Right femoral neck T-score-1.1 Right femur total -1.0 Code(s): M81.0 - Age-related osteoporosis without current pathological fracture Category: Medical Qualifiers: Osteoporosis type: age-related Presence of current pathological fracture: with current pathological fracture Encounter type: initial encounter Qualified Code(s): M80.00XA - Age-related osteoporosis with current pathological fracture, unspecified site, initial encounter for fracture Plan: History of left hip fracture 2018, this is likely osteoporotic. as patient had been on steroids for decades. DEXA scan shows osteopenia. She has history of left hip fracture which is likely osteoporotic. Alendronate started 04/2023. Well tolerated. Continue alendronate 70 mg weekly (3) Long-term use of hydroxychloroquine: Comment: Eye exam okay 01/2023 Code(s): Z79.899 - Other ferry terminal agent (current) drug therapy Category: Medical Plan: Discussed risks of retinopathy with hydroxychloroquine. Continue to follow-up regularly with Dr. Brianda Sweeney I spent 35 minutes reviewing patient's chart, evaluating patient, ordering diagnostic workup, counseling patient and documenting in the chart Orders: Orders Anti DNA DS Antibody 4 Months - Other organ or system involvement in systemic lupus erythematosus Complement C3 4 Months - Other organ or system involvement in systemic lupus erythematosus C Reactive Protein 4 Months . - Other organ or system involvement in systemic lupus erythematosus Erythrocyte Sedimentation Rate 4 Months . - Other organ or system involv ement in systemic lupus erythematosus UA w Microscopic 4 Months . - Other organ or system involvement in systemic lupus erythematosus Comprehensive Met. Panel 4 Months . - Other organ or system involvement in systemic lupus erythematosus Complement C4 4 Months . - Other organ or system involvement in systemic lupus erythematosus DNA Double Stranded-Crithidia 4 Months . - Other organ or system involvement in systemic lupus erythematosus Protein Creatinine Ratio, Ur 4 Months . - Other organ or system involvement in systemic lupus erythematosus Complete Blood Count Auto Diff 4 Months . - Other organ or system involvement in systemic lupus erythematosus Coding Level of Care Code Est Pt Level 4 (36031) Diagnoses Systemic lupus erythematosus with other organ involvement, unspecified SLE type Systemic lupus erythematosus type: unspecified Systemic lupus erythematosus organ involvement: other Age-related osteoporosis with current pathological fracture, initial encounter M80.00XA Osteoporosis type: age-related Presence of current pathological fracture: with current pathological fracture Encounter type: initial encounter Long-term use of hydroxychloroquine Z79.899
[2024-04-08 10:33] VITALS: BP 118/72; PULSE 84; O2SAT 98; BMI 31.6
== END 2024-04-08 11:01 | disposition home or self-care (01) ==
PROVIDERS: PCP Family Medicine; Visit Provider Student in an Organized Health Care Education/Training Program
DX: M32.19 Other organ or system involvement in systemic lupus erythematosus (principal); M80.00XA Age-related osteoporosis with current pathological fracture, unspecified site, initial encounter for fracture; Z79.899 Other long term (current) drug therapy
CPT/HCPCS: 99214

== ENCOUNTER → 2024-04-08 10:26 | Outpatient (BNVA) | payer MEDICARE, MEDICAID, SELFPAY | PROVIDERS: PCP Family Medicine; Visit Provider Student in an Organized Health Care Education/Training Program | DX: M32.19 Other organ or system involvement in systemic lupus erythematosus (principal); M80.00XD Age-related osteoporosis with current pathological fracture, unspecified site, subsequent encounter for fracture with routine healing; Z79.899 Other long term (current) drug therapy | CPT/HCPCS: 99212 ==

== ENCOUNTER 2024-08-09 10:03 | Outpatient (AMB) | payer MEDICARE, MEDICAID, SELFPAY ==
[2024-08-09 10:10] VITALS: BP 120/68; PULSE 92; O2SAT 99; BMI 30.5
--- NOTE | 2024-08-09 10:10 | A.OFFVIS_ITS ---
Vital Signs 08/09/24 10:10 Height 5 ft 6.5 in Weight 191 lb 9.307 oz BMI 30.5 BP 120/68 Blood Pressure Location Lt brachial Position Sitting Pulse 92 Pulse Source Pulse Oximeter Pulse Oximetry (%) 99 Oxygen Delivery Method Room Air Intake Visit Reasons: SLE Intake Note: Patient last seen by doctor Katya Mandel on 04/08/24. Presents today for SLE follow up and test results. Allergies azathioprine Allergy (Severe, Verified 08/09/24 10:11) Pancreatitis carbamazepine Adverse Reaction (Severe, Verified 08/09/24 10:11) Unknown diazepam [From Valium] Adverse Reaction (Severe, Verified 08/09/24 10:11) Anaphylaxis Iodinated Contrast Media Adverse Reaction (Severe, Verified 08/09/24 10:11) Angioedema, swelling, rash latex Adverse Reaction (Severe, Verified 08/09/24 10:11) Rash Penicillins Adverse Reaction (Severe, Verified 08/09/24 10:11) Anaphylaxis Sulfa (Sulfonamide Antibiotics) Adverse Reaction (Severe, Verified 08/09/24 10 :11) Unknown azithromycin Adverse Reaction (Intermediate, Verified 08/09/24 10:11) Syncope, nausea duloxetine [From Cymbalta] Adverse Reaction (Intermediate, Verified 08/09/24 10:11) Dizziness gabapentin Adverse Reaction (Intermediate, Verified 08/09/24 10:11) Seizure hydrocodone Adverse Reaction (Intermediate, Verified 08/09/24 10:11) Tongue swelling hydromorphone [From Dilaudid] Adverse Reaction (Intermediate, Verified 08/09/24 10:11) Anaphylaxis leflunomide [From Arava] Adverse Reaction (Intermediate, Verified 08/09/24 10:11) Seizure cat pelt standardized allergenic ex Adverse Reaction (Unknown, Verified 08/09/24 10:11) Asthma Macrolide Antibiotics Adverse Reaction (Unknown, Verified 08/09/24 10:11) Unknown phenytoin Adverse Reaction (Unknown, Verified 08/09/24 10:11) Angioedema Tetracyclines Adverse Reaction (Unknown, Verified 08/09/24 10:11) Unknown Benzodiazepines Adverse Reaction (Verified 08/09/24 10:11) Seizure codeine Adverse Reaction (Verified 08/09/24 10:11) bronchospasm oxycodone Adverse Reaction (Verified 08/09/24 10:11) Anaphylaxis leflunomide Adverse Reaction (Intermediate, Uncoded 08/09/24 10:11) seizures Medication List - Last Reconciled 08/09/24 by Katya Mandel MD alendronate 70 mg PO QWEEK allopurinol 100 mg PO DAILY amlodipine 0 mg PO hydroxychloroquine 400 mg (2 x 200 mg) PO DAILY levetiracetam 250 mg PO DAILY levothyroxine (Synthroid) 150 mcg PO DAILY levothyroxine (Synthroid) 150 mcg PO DAILY losartan 100 mg PO DAILY meloxicam 15 mg PO DAILY PRN NS HPI Comments Details: 74-year-old female with SLE returns for follow-up. She had another right foot surgery involving her right 2nd toe 2 months ago. She states that she feels that her toes change color sometimes. She has shooting pain that arises from between her right 3rd and 4th toes when she steps on it that shoots up into her right thigh. She has been having dizziness. He denies any skin rashes. Denies any swollen joints. She feels achy when she runs out of meloxicam. Initial history: This is a 72-year-old female with complex past medical history who presents as a new patient. She used to follow-up with a flexographic press plate setter in [place]. Patient states that she went to the hospital when she was 16 for a fever and she was initially diagnosed with leukemia, afterwards she was told that this was likely her initial manifestation of lupus. Patient states that she has diffuse body aches and rashes related to SLE. She was on prednisone and methotrexate for about 10 years and gained significant amount of weight. She had been on hydroxychloroquine consistently since 2002. She was tried on Imuran for a few weeks and had a severe reaction, had to go to the hospital. She also stated that she was diagnosed with ulcerative colitis and was on treatment for years. Patient also stated that she fractured her left hip. Patient had 4 pregnancies, 3 miscarriages and the 4th resulted in a normal delivery. Her child however had clubfeet. Patient has diffuse pain especially of her hands, elbows, shoulders, knees. She takes meloxicam daily. [facility] Medical History Peripheral vascular disease Vasculopathy Kidney stone on right side Ulcerative colitis Cervical cancer Difficulty speaking Noninfectious gastroenteritis Lupus erythematosus Mononeuritis Low back pain Sprain of foot Brachial (cervical) neuritis Gouty arthropathy Dysphagia Edema of extremity Joint pain of ankle and foot Hip pain Idiopathic peripheral autonomic neuropathy Gout Status epilepticus, generalized convulsive Hyperlipemia Degenerative joint disease Systemic lupus erythematosus Inflammatory disorder of jaw Neck pain Mycosis Benign essential hypertension History of malignant neoplasm of thyroid Postoperative hypothyroidism Surgical History History of foot surgery History of kidney surgery H/O lithotripsy Status post total hip replacement, left Hx of total thyroidectomy History of total hysterectomy with bilateral salpingo-oophorectomy (BSO) Hx of appendectomy Hx of tonsillectomy Family History Mother Hyperlipidemia Thyroid cancer Maternal Grandmother Thyroid cancer Social History Household Members: None Alcohol intake: never Patient Tobacco Use Status: Never used Tobacco Current occupational status: retired Current occupation: used to work as a psychotherapist Female Reproductive History Menstrual Total pregnancies: 4 Number of Living Children: 1 Ab spontaneous: 3 Review of Systems ENT Reports dizziness Musc Reports arthralgias and Reports radiating pain into limb Neuro Reports dizziness Physical Exam Vital Signs: Last Vital Signs Pulse 92 08/09/24 10:10 BP 120/68 08/09/24 10:10 Pulse Ox 99 08/09/24 10:10 Oxygen Delivery Method Room Air 08/09/24 10:10 BMI result Body Mass Index 30.5 Const General: cooperative and healthy appearing Nutritional Appearance: obese Orientation/consciousness: patient oriented x3 Limitations: no limitations and ambulation with cane HEENT Head: Yes normocephalic and Yes atraumatic Resp Effort & Inspection: normal respiratory effort and able to speak in complete sentences Cardio Rate: regular rate GI Inspection: No distended Palpation (GI): Soft to palpation and nontender Neuro General: patient oriented x3 Extrem Other: Osteoarthritic changes of both hands with prominent Heberden's and Theresa's nodes With no active synovitis today Right foot hammertoes,, right foot bunion S/p right 2nd toe amputation Assessment & Plan Assessment & Plan (1) Systemic lupus erythematosus: Comment: SLE( characterized by inflammatory arthritis, positive dsDNA?) methotrexate for 8 years, stopped in 2016 out of concern for osteopenia Imuran caused pancreatitis.? 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 Her SLE is fairly well controlled on hydroxychloroquine 400 mg daily. On exam I do not see any signs suggestive of active SLE. She continues to take meloxicam 15 mg daily. Continue hydroxychloroquine 400 on mg daily Labs before next visit in 4 months (2) Osteoporosis: Comment: DEXA 03/23 L-spine T-score 4.8 Right femoral neck T-score-1.1 Right femur total -1.0 Code(s): M81.0 - Age-related osteoporosis without current pathological fracture Category: Medical Qualifiers: Osteoporosis type: age-related Presence of current pathological fracture: with current pathological fracture Encounter type: initial encounter Qualified Code(s): M80.00XA - Age-related osteoporosis with current pathological fracture, unspecified site, initial encounter for fracture Plan: History of left hip fracture 2018, this is likely osteoporotic. as patient had been on steroids for decades. DEXA scan shows osteopenia. She has history of left hip fracture which is likely osteoporotic. Alendronate started 04/2023. Well tolerated. Continue alendronate 70 mg weekly (3) Long-term use of hydroxychloroquine: Comment: Eye exam okay 01/2023 Code(s): Z79.899 - Other retirement (current) drug therapy Category: Medical Plan: Discussed risks of retinopathy with hydroxychloroquine. Continue to follow-up regularly with Dr. Lamar (4) NSAID long-term use: Code(s): Z79.1 - vermin exterminator (current) use of non-steroidal anti-inflammatories (NSAID) Category: Medical Plan: Discussed risks of long-term NSAID use including GI, nephro and cardiotoxicity. Patient is aware. However it does help her quality of life significantly. We will monitor her labs periodically Plan I spent 30 minutes reviewing patient's chart, evaluating patient, ordering diagnostic workup, counseling patient and documenting in the chart Orders: Orders Complement C4 4 Months M3. - Other organ or system involvement in systemic lupus erythematosus Erythrocyte Sedimentation Rate 4 Months M3. - Other organ or system involvement in systemic lupus erythematosus DNA Double Stranded-Crithidia 4 Months M3. - Other organ or system involvement in systemic lupus erythematosus UA w Microscopic 4 Months M3. - Other organ or system involvement in s ystemic lupus erythematosus Complete Blood Count Auto Diff 4 Months . - Other organ or system involvement in systemic lupus erythematosus Comprehensive Met. Panel 4 Months . - Other organ or system involvement in systemic lupus erythematosus Anti DNA DS Antibody 4 Months . - Other organ or system involvement in systemic lupus erythematosus Complement C3 4 Months . - Other organ or system involvement in systemic lupus erythematosus C Reactive Protein 4 Months . - Other organ or system involvement in systemic lupus erythematosus Protein Creatinine Ratio, Ur 4 Months . - Other organ or system involvement in systemic lupus erythematosus Coding Level of Care Code Est Pt Level 4 (97794) Diagnoses Systemic lupus erythematosus with other organ involvement, unspecified SLE type . Systemic lupus erythematosus type: unspecified Systemic lupus erythematosus organ involvement: other Age-related osteoporosis with current pathological fracture, initial encounter M80.00XA Osteoporosis type: age-related Presence of current pathological fracture: with current pathological fracture Encounter type: initial encounter Long-term use of hydroxychloroquine Z79.899 NSAID long-term use Z79.1
--- OUTSIDE RECORDS SUMMARY | 2024-08-11 14:20 | XMS_ITS | Data Portability ---
Author Organization [employer] [employer] [facility] Address [address] [place] [address] Assessment Encounter Date Assessment Date Assessment LastModified by Organization Details LastModified Time 10/21/2023 10/21/2023 I provided real -time medical direction via phone for this encounter, and was available for additional phone based assistance as needed. I have reviewed and agree with the Assessment and Plan as documented by the Vice President Fixed Income. We discussed the diagnostic uncertainty of home visits and the risk associated with this..The patient given the opportunity to ask questions. Advised need for evaluation in the ED-given her list of allergies she will likely need intravenous antibiotics - i.e.: Vancomycin -I suggested clindamycin or doxycycline as a trial as the ciprofloxacin is not working and the patient has an appointment with [facility], with the safe and vault service mechanic( Dr. Mascorro) tomorrow. The patient states she does not think she can take either of those although they are not specifically listed on her allergy list. I did discuss w/ her PCP's covering provider (PCP is Sara Ramirez of [facility])Patient is understandably fearful with taking new or related oral antibiotics, due to prior history of anaphylaxis. With the redness shift spreading and pain increasing, and concern for osteomyelitis, and the patient needs lab work and imaging which we are unable to do at home. We felt imaging and treatment in the emergency room would be in the patient's best interest tonight-this was verbalized to the patient. My preference clinically would be for IV vancomycin, especially if radiographic studies reveal osteomyelitis has developed, but we do not have the ability to do a every 12 hour drug this service. Thus I think it would be better for the patient to go to the ER rather than waiting another day with this infection progressing, do not want the patient to develop bacteremia. I also explained, after testing if the ER decides on a p.o. antibiotic, they can give her the first dose and observe her for several hours, and it will be safer for her to be observed for a longer period of time then our service is able to do -she verbalized understanding and is in agreement to transfer. Report called to Kaylynn PABON [email or web address] Not available 10/22/2023 11:50:01 Plan of Treatment Reminders Order Date Submit Date Provider Last Modified By Organization Details Last Modified Time Details Appointments None record ed. Lab None record ed. Referral None record ed. Procedures None record ed. Surgeries None record ed. Imaging None record ed. Medication Orders None record ed. Patient TargetsNo targets recorded. Patient InstructionsNo instructions recorded. Reason for Referral None Reported. Medical Equipment None Reported. Allergies Allergen ID Allergen Name Allergen Category Reaction Reaction Severity Criticality Documentation Date Start Date Code Code System Note Provider Name and Address Organization Details Recorded Time 9617 azithromy teresa medicatio n Not available Not available Not available 06/29/2024 82885 RxNorm Not Available [facility] 04:13:46 9618 latex environme nt,medica tion Not available Not available Not available 06/29/2024 96515 91 RxNorm Not Available [facility] 4 04:13:46 9619 Medicinal product containin g penicilli n and acting as antibacte rial agent (product) medicatio n Not available Not available Not available 06/29/2024 18833 05 SNOMED Not Available [facility] 4 04:13:46 Medications Name Sig Start Date Stop Date Status Note LastModified by Organization Details LastModified Time Synthroid 150 mcg tablet TAKE 1 TABLET BY MOUTH ONCE DAILY active Not Available Not Available No t Available meloxicam 15 mg tablet TAKE 1 TABLET BY MOUTH ONCE DAILY NEEDED FOR PAIN (SCALE SCORE 4-6) active Not Available Not Available N ot Available Synthroid 125 mcg tablet TAKE 2 TABLETS BY MOUTH ONCE DAILY active Not Available Not Available No t Available alendronate 70 mg tablet TAKE 1 TABLET BY MOUTH ONCE A WEEK ON AN EMPTY STOMACH IN THE MORNING WITH PLENTY OF WATER(AT LEAST 6 OUNCES). REMAIN UPRIGHT FOR 30 MINUTES active Not Available Not Available N ot Available amlodipine 5 mg tablet TAKE 1/2 (ONE-HALF) TABLET BY MOUTH ONCE DAILY FOR 1 WEEK THEN INCREASE TO 1 TABLET DAILY active Not Available Not Available No t Available allopurinol 100 mg tablet TAKE 1 TABLET BY MOUTH ONCE DAILY DIRECTED active Not Available Not Available No t Available ciprofloxaci n 500 mg tablet TAKE 1 TABLET BY MOUTH EVERY 12 HOURS FOR 10 DAYS active Not Available Not Available Not Available Synthroid 175 mcg tablet TAKE 1 TABLET BY MOUTH ONCE DAILY active Not Available Not Available No t Available levetiraceta m 250 mg tablet TAKE 1/2 TO 1 (ONE-HALF TO ONE) TABLET BY MOUTH BEFORE BED active Not Available Not Available N ot Available olopatadine 0.1 % eye drops INSTILL 1 DROP INTO EACH EYE DAILY active Not Available Not Available No t Available hydroxychlor oquine 200 mg tablet TAKE 2 TABLETS BY MOUTH ONCE DAILY FOR A TOAL OF 400 MG active Not Available Not Available No t Available epinephrine 0.3 mg/0.3 mL injection, auto-injecto r USE DIRECTED IF SIGNS OF ANAPHYLASIX active Not Available Not Available Not Available losartan 100 mg tablet TAKE 1 TABLET BY MOUTH ONCE DAILY active Not Available Not Available No t Available nitrofuranto in monohydrate/ macrocrystal s 100 mg capsule TAKE 1 CAPSULE BY MOUTH TWICE DAILY STARTING 3 DAYS BEFORE PROCEDURE active Not Available Not Available No t Available QuickVue At-Home COVID-19 Test kit Use as Directed on the Package active Not Available Not Available Not Available Vitals Date Recorded Respiratory rate Heart rate Oxygen saturation Oxygen saturation in Arterial blood by Pulse oximetry Body temperature Systolic blood pressure Diastolic blood pressure Provider Name and Address Organization Details Last Updated DateTime 4 18 /min 87 /min 99 % 99 % 98.9 [degF] 160 mm[Hg] 98 mm[Hg] Not Available [facility] 4 16:44:40 Social History None recorded. Functional Status None recorded. Mental Status None recorded. Family History Nothing Reported. Medical History No medical history recorded. Gynecological HistoryNo gynecological history recorded. Obstetrics History GPAL:G 0 P 0 0 0 0 Past Encounters Encounter ID Performer Location Encounter Start Date Encounter Closed Date Diagnosis/Indication Diagnosis SNOMED-CT Code Diagnosis ICD10 Code [id number] Valeria Maldonado MD [facility] [address] [place] [address] 10/21/2023 16:44:05 10/22/2023 12:38:54 Cellulitis of right lower limb [id number] L03.115 Health Concerns Section Related Observation LastModified by Organization Detai ls LastModified Time None Recorded Concern Status LastModified by Organization Details LastModified Time None Recorded Advance Directives Directive None Recorded Payers Encounter Date Sequence Insurance Name Policy Number Policy Cordero Covered Member ID Cordero Member ID Guarantor Name 10/21/2023 1 [facility] - DOS ON OR AFTER 2022 - DUAL ELIGIBLE - LONG TERM OPTIONS AND ONE CARE (MEDICARE REPLACEMENT/AD VANTAGE - HMO) Ludmila Simpson [id number] Ludmila Simpson Notes Date Note Type Note Provider Name and Address Organization Details Recorded Time 10/21/2023 text/html HPI: generalized convulsive epilepsy, lupus, idiopathic peripheral autonomic neuropathy ................... ................... ................... ................... ................... ................... ................... ........ [facility] Nurse Triage Notes (Mary Jo Foster): Comments: HPI reviewed. No additional information required to process visit ................... ................... ................... ................... ................... ................... ................... ........ Vice President Fixed Income Note From Michell Malik: Upon arrival pt used a cane to walk from The door to a chair. A/O x4, pt is pink/cold/dry and not in any immediate respiratory distress. Pt states she began having ? symptoms? in her right foot, in the second toe since June. Pt states these symptoms became worse in September. At first, the toe bubbled and pt punctured it with a needle. Pt stated thick, reddish brown fluid was released. Then pt? s toe became increasingly warm, red, swollen and painful to the touch. Then pt began having pain when walking. Pt was prescribed 2 rounds of antibiotics however it has had no effect. Pt states the redness has now spread to the top of her foot. Pt unsure if she has had any fevers as she takes ibuprofen for pain. Pt denies any CP, dizziness, nausea, and/or diarrhea. Vitals as noted. Bilateral breath sounds clear. Pt has hx of CMT, asthma, and lupus and has MANY allergies. Pedal pulses in tact. Area of second toe is red, swollen, and hot to the touch. There is some fluid leaking from the area. Pt states 5/10 pain. [facility] contacted and due to pts hx and allergies pt was recommended to be evaluated in the ER. Pt agreed and 911 was called. [facility] called hospital to alert of pts arrival. Care was transferred to EMS and call was then cleared. Vice President [employer] Allergies: Azithromycin, Latex, Penicillin ................... ................... ................... ................... ................... ................... ................... ........ Disposition: FulfilledSEGMD:Bryanna ent with multiple significant allergies. In addition to above she has [id number] , with chronic foot pain/numbness and tingling. She was prescribed ciprofloxacin for 7 days on 09/22 and then again a 14-day supply on 10/13/2023. The toe is worsening. The redness is spreading. Patient is unsure if he has had a fever as she is on ibuprofen [id number]. She denies any history of diabetes, she denies chest pain, shortness of breath, nausea vomiting or calf pain Valeria Maldonado MD [address] [facility],[address], [place], [address], [facility] 10/22/2023 11:50:11 OBGyn Episode No OBEpisode recorded.
== END 2024-08-09 10:40 | disposition home or self-care (01) ==
PROVIDERS: PCP Family Medicine; Visit Provider Student in an Organized Health Care Education/Training Program
DX: M32.19 Other organ or system involvement in systemic lupus erythematosus (principal); M80.00XA Age-related osteoporosis with current pathological fracture, unspecified site, initial encounter for fracture; Z79.899 Other long term (current) drug therapy; Z79.1 Long term (current) use of non-steroidal anti-inflammatories (NSAID)
CPT/HCPCS: 99214

== ENCOUNTER → 2024-08-09 10:03 | Outpatient (BNVA) | payer MEDICARE, MEDICAID, SELFPAY | PROVIDERS: PCP Family Medicine; Visit Provider Student in an Organized Health Care Education/Training Program | DX: M32.19 Other organ or system involvement in systemic lupus erythematosus (principal); M80.00XA Age-related osteoporosis with current pathological fracture, unspecified site, initial encounter for fracture; Z79.899 Other long term (current) drug therapy; Z79.1 Long term (current) use of non-steroidal anti-inflammatories (NSAID) | CPT/HCPCS: 99212 ==

== ENCOUNTER 2024-12-27 07:37 | Outpatient (AMB) | payer MEDICARE, MEDICAID, SELFPAY ==
--- NOTE | 2024-12-27 07:39 | A.OFFVIS_ITS ---
Vital Signs 12/27/24 07:46 Height 5 ft 6.5 in Weight 181 lb 10.574 oz BMI 28.9 BP 120/72 Blood Pressure Location Lt brachial Position Sitting Pulse 72 Pulse Source Pulse Oximeter Pulse Oximetry (%) 100 Oxygen Delivery Method Room Air Intake Visit Reasons: SLE/ Lupus Intake Note: Patient presents for SLE and Lupus follow up. Allergies azathioprine Allergy (Severe, Verified 12/27/24 07:42) Pancreatitis carbamazepine Adverse Reaction (Severe, Verified 12/27/24 07:42) Unknown diazepam [From Valium] Adverse Reaction (Severe, Verified 12/27/24 07:42) Anaphylaxis Iodinated Contrast Media Adverse Reaction (Severe, Verified 12/27/24 07:42) Angioedema, swelling, rash latex Adverse Reaction (Severe, Verified 12/27/24 07:42) Rash Penicillins Adverse Reaction (Severe, Verified 12/27/24 07:42) Anaphylaxis Sulfa (Sulfonamide Antibiotics) Adverse Reaction (Severe, Verified 12/27/24 07:42) Unknown azithromycin Adverse Reaction (Intermediate, Verified 12/27/24 07:42) Syncope, nausea duloxetine [From Cymbalta] Adverse Reaction (Intermediate, Verified 12/27/24 07:42) Dizziness gabapentin Adverse Reaction (Intermediate, Verified 12/27/24 07:42) Seizure hydrocodone Adverse Reaction (Intermediate, Verified 12/27/24 07:42) Tongue swelling hydromorphone [From Dilaudid] Adverse Reaction (Intermediate, Verified 12/27/24 07:42) Anaphylaxis leflunomide [From Arava] Adverse Reaction (Intermediate, Verified 12/27/24 07:42) Seizure cat pelt standardized allergenic ex Adverse Reaction (Unknown, Verified 12/27/24 07:42) Asthma Macrolide Antibiotics Adverse Reaction (Unknown, Verified 12/27/24 07:42) Unknown phenytoin Adverse Reaction (Unknown, Verified 12/27/24 07:42) Angioedema Tetracyclines Adverse Reaction (Unknown, Verified 12/27/24 07:42) Unknown Benzodiazepines Adverse Reaction (Verified 12/27/24 07:42) Seizure codeine Adverse Reaction (Verified 12/27/24 07:42) bronchospasm oxycodone Adverse Reaction (Verified 12/27/24 07:42) Anaphylaxis leflunomide Adverse Reaction (Intermediate, Uncoded 08/09/24 10:11) seizures Medication List - Last Reconciled 12/27/24 by Sudha Hernandez MD alendronate 70 mg PO QWEEK allopurinol 100 mg PO DAILY amlodipine 0 mg PO hydroxychloroquine 400 mg (2 x 200 mg) PO DAILY levetiracetam 250 mg PO DAILY levothyroxine (Synthroid) 150 mcg PO DAILY losartan 100 mg PO DAILY meloxicam 15 mg PO DAILY PRN NS HPI Comments Details: Patient is a 74-year-old female with hypertension complicated by PAD and PVD s/p right 2nd toe amputation, hypothyroidism, osteoporosis and SLE here today for follow up Interval History: Patient last seen 08/09/[address] Mandel. At that time she was following up for her lupus. Reports she has been having ongoing fevers for the past year, but has been noting the last 3 months there has been worsening fevers with temperatures as high as 102. States that she feels like her fevers occur once a week. No ulcers in the mouth or in the nose, no photosensitive/inflammatory rashes, alopecia. AM stiffness lasting about 20 mins in the AM Currently using crutches because she is is having significant right foot and right knee pain Rheumatologic History: SLE( characterized by inflammatory arthritis, positive dsDNA?) methotrexate for 8 years, stopped in 2016 out of concern for osteopenia Imuran caused pancreatitis.? 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 Mandel: This is a 72-year-old female with complex past medical history who presents as a new patient. She used to follow-up with a call or contact centre coach in [place]. Patient states that she went to the hospital when she was 16 for a fever and she was initially diagnosed with leukemia, afterwards she was told that this was likely her initial manifestation of lupus. Patient states that she has diffuse body aches and rashes related to SLE. She was on prednisone and methotrexate for about 10 years and gained significant amount of weight. She had been on hydroxychloroquine consistently since 2002. She was tried on Imuran for a few weeks and had a severe reaction, had to go to the hospital. She also stated that she was diagnosed with ulcerative colitis and was on treatment for years. Patient also stated that she fractured her left hip. Patient had 4 pregnancies, 3 miscarriages and the 4th resulted in a normal delivery. Her child however had clubfeet. Patient has diffuse pain especially of her hands, elbows, shoulders, knees. She takes meloxicam daily. Osteoporosis based on DEXA showing Osteopenia with left hip fracture DEXA 03/23 L-spine T-score 4.8 Right femoral neck T-score-1.1 Right femur total -1.0 Alendronate 04/2023 Current Rheumatology Medication(s): Alendronate 70g weekly PO Plaquenil 200mg bid [facility] Medical History Peripheral vascular disease Vasculopathy Kidney stone on right side Ulcerative colitis Cervical cancer Difficulty speaking Noninfectious gastroenteritis Lupus erythematosus Mononeuritis Low back pain Sprain of foot Brachial (cervical) neuritis Gouty arthropathy Dysphagia Edema of extremity Joint pain of ankle and foot Hip pain Idiopathic peripheral autonomic neuropathy Gout Status epilepticus, generalized convulsive Hyperlipemia Degenerative joint disease Systemic lupus erythematosus Inflammatory disorder of jaw Neck pain Mycosis Benign essential hypertension History of malignant neoplasm of thyroid Postoperative hypothyroidism Surgical History History of foot surgery History of kidney surgery H/O lithotripsy Status post total hip replacement, left Hx of total thyroidectomy History of total hysterectomy with bilateral salpingo-oophorectomy (BSO) Hx of appendectomy Hx of tonsillectomy Family History Mother Hyperlipidemia Thyroid cancer Maternal Grandmother Thyroid cancer Social History Household Members: None Alcohol intake: never Patient Tobacco Use Status: Never used Tobacco Current occupational status: retired Current occupation: used to work as a psychotherapist Review of Systems Const Details: Review of Systems Constitutional: Denies fever, chills, weight loss ENT: Denies vision changes, eye pain or eye redness, dental caries, dry mouth GI: Denies nausea, vomiting, diarrhea, abdominal pain, change in BM Pulm: Denies SOB, ESQUIVEL, hemoptysis, wheezing Cards: Denies chest pain, palpitations Skin: Denies Raynaud's, rash, nail changes, photosensitivity, DEPUTY PROSECUTING ATTORNEY: Denies headaches, weakness, paresthesias, recurrent falls MSK: as per HPI All other systems reviewed and are unremarkable except noted above Physical Exam Vital signs reviewed Physical Examination CONSTITUITIONAL Patient alert and cooperative. Well appearing and in no apparent painful distress HEENT Conjunctiva and sclera clear. ?Pupils equal round and reactive to light. ?No lymphadenopathy. ? CHEST/RESPIRATORY SYSTEM Normal respiratory effort and able to speak in complete sentences. ?Clear to auscultation bilaterally. ?No crackles, rales, rhonchi, wheezes heard. CARDIAC SYSTEM Regular rate and rhythm. ?S1 and S2 heard no murmurs. ?Radial pulses intact bilaterally MSK Hands: ?Able to make a fist. No synovitis noted to the MCPs, PIPs or DIPs. ?No tenderness to palpation of these joints. Herbeden's nodes Wrists: ?Full range of motion at the wrists without pain. ?No tenderness to palpation or synovitis noted to the wrists. Prominent bone protrusion on the dosum of the wrist Elbows: Full range of motion without pain. No tenderness, weakness, swelling, increased warmth or erythema. Shoulders: Full range of active range of motion without pain. No tenderness, weakness, swelling, increased warmth or erythema. Positive Hawkin's Josué bilaterally with TTP of bilateral subacromial bursa Knees: ?Full range of motion. ?No tenderness, swelling, increased warmth or erythema.?Bilateral crepitations Ankles: Full range of motion. ?No tenderness, swelling, increased warmth or erythema.? Feet: ?Negative squeeze test. ?No tenderness to palpation or swelling of the MTPs. Right foot the 2nd toe amputation. mild swelling and TTP in the 2nd web space of the right chemicals distiller points:?No tenderness to palpation of the bilateral trapezius, supraspinatus, greater trochanters, anterior costochondral junctions, bilateral gluteal areas, bilateral suboccipital muscle insertions SKIN Skin intact without rashes. Results Reviewed Results Reviewed: No recent labs seen in chart Assessment & Plan Assessment & Plan (1) Systemic lupus erythematosus: Comment: SLE( characterized by inflammatory arthritis, positive dsDNA?) methotrexate for 8 years, stopped in 2016 out of concern for osteopenia Imuran caused pancreatitis.? 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 Patient has been complaining of recurrent fevers but on exam there is no evidence of any active lupus no rashes, no inflammatory synovitis, no oral/nasal ulcers. We will check blood work today and reassess as needed. Plan - Continue plaquenil 200mg bid - Labs today: CBC, CMP, ESR, CRP, C3, C4, dsDNA, UA, UPC - RTC 6 months (2) Knee pain, right: Code(s): M25.561 - Pain in right knee Qualifiers: Chronicity: chronic Qualified Code(s): M25.561 - Pain in right knee; G89.29 - Other chronic pain Plan: #Right Knee Pain Patient complain of right knee pain. Exam is consistent with osteoarthritis. We will check x-rays Plan - XR Bilateral Knees - Ortho referral (3) Gout: Code(s): M10.9 - Gout, unspecified Category: Medical Qualifiers: Gout site: unspecified site Gout etiology: unspecified cause Chronicity: unspecified Qualified Code(s): M10.9 - Gout, unspecified Plan: #Gout Patient with a diagnosis of non crystal proven gout. The patient carries this diagnosis from her primary who she also get the allopurinol from. We will check her uric acid (4) Rm's neuroma of right foot: Code(s): G57.61 - Lesion of plantar nerve, right lower limb Plan: #?Rm's neuroma Patient with tender to palpation area in the 2nd webspace of the right foot just proximal to her amputated 2nd toe stump. Concern that this may be a Rm's neuroma. We will send to Podiatry (5) Osteoporosis: Comment: DEXA 03/23 L-spine T-score 4.8 Right femoral neck T-score-1.1 Right femur total -1.0 Code(s): M81.0 - Age-related osteoporosis without current pathological fracture Category: Medical Qualifiers: Encounter type: initial encounter Osteoporosis type: age-related Presence of current pathological fracture: with current pathological fracture Qualified Code(s): M80.00XA - Age-related osteoporosis with current pathological fracture, unspecified site, initial encounter for fracture Plan: #Osteoporosis Patient with DEXA showing osteopenia and history of left hip fracture status post replacement currently being treated with alendronate. Due for repeat DEXA in March Plan - DEXA 03/2025 - Check Vit D (6) Long-term use of hydroxychloroquine: Comment: Eye exam okay 01/2023 Code(s): Z79.899 - Other terminal operations supervisor (current) drug therapy Category: Medical Plan: #Long-term Use of Hydroxychloroquine Discussed with patient the risks and benefits of hydroxychloroquine in managing the rheumatic condition Benefits include: - Reduced pain, reduce mortality, maintenance of remission and reduction of flares Risks include: - GI upset, skin hyperpigmentation, retinal toxicity (especially after more than 5 years of use), myopathy Advised yearly ophthalmology visits (7) Encounter for monitoring bisphosphonate therapy: Code(s): Z51.81 - Encounter for therapeutic drug level monitoring; Z79.83 - terminal operations supervisor (current) use of bisphosphonates Plan: #Long-term Use of Bisphosphonates Risks and benefits of bisphosphonates in the management of osteoporosis Benefits include improved bone density, decreased fracture risk Risks include atypical femoral fractures, GI upset, esophageal strictures Contraindicated in patients with a creatinine clearance < 30 to 35 ml/min Keep vitamin-D at least 35 ng/mL Plan I spent 30 minutes reviewing the record and labs, taking a history, examining the patient, discussing the treatment plan, ordering diagnostic work up and documenting in the medical record Orders: Orders Complete Blood Count Auto Diff Today M3. - Other organ or system involvement in systemic lupus erythematosus Erythrocyte Sedimentation Rate Today M32. - Other organ or system involvement in systemic lupus erythematosus UA w Microscopic Today M32. - Other organ or system involvement in systemic lupus erythematosus Vitamin D 25-OH Total Today E55.9 - Vitamin D deficiency, unspecified XR DEXA axial skeleton 03/07/25 M80.00XA - Age-related osteoporosis with current pathological fracture, unspecified site, initial encounter for fracture Anti DNA DS Antibody Today M32. - Other organ or system involvement in systemic lupus erythematosus Complement C3 Today M32. - Other organ or system involvement in systemic lupus erythematosus Complement C4 Today M32. - Other organ or system involvement in systemic lupus erythematosus Comprehensive Met. Panel Today M3. - Other organ or system involvement in systemic lupus erythematosus C Reactive Protein Today M32.19 - Other organ or system involvement in systemic lupus erythematosus Protein Creatinine Ratio, Ur Today M32.19 - Other organ or system involvement in systemic lupus erythematosus XR knee LT 3V Today M25.561 - Pain in right knee XR knee RT 3V Today M25.561 - Pain in right knee Uric Acid Today M10.9 - Gout, unspecified Referrals Podiatry Referral G57.61 - Lesion of plantar nerve, right lower limb, M79.671 - Pain in right foot Orthopedics Referral M25.561 - Pain in right knee, Z96.642 - Presence of left artificial hip joint Coding Level of Care Code Est Pt Level 4 (68459) Complex EM visit Add On G2211 Diagnoses Systemic lupus erythematosus with other organ involvement, unspecified SLE type M32.19 Systemic lupus erythematosus organ involvement: other Systemic lupus erythematosus type: unspecified Chronic pain of right knee M25.561; G89.29 Chronicity: chronic Gout, unspecified cause, unspecified chronicity, unspecified site M10.9 Gout site: unspecified site Gout etiology: unspecified cause Chronicity: unspecified Rm's neuroma of right foot G57.61 Age-related osteoporosis with current pathological fracture, initial encounter M80.00XA Encounter type: initial encounter Osteoporosis type: age-related Presence of current pathological fracture: with current pathological fracture Long-term use of hydroxychloroquine Z79.899 Encounter for monitoring bisphosphonate therapy Z51.81; Z79.83
--- OUTSIDE RECORDS SUMMARY | 2024-12-27 07:39 | XMS_ITS | Clinical Summary ---
Author Organization [facility], Address [address] [address] Phone Care Team Providers Care Police Judge Name Role Phone Bertha Graff Primary Care Provider [phone] Allergies Active Allergy Reactions Criticality Noted Date Comments Azathioprine Other (see comments) Medium 02/12/2005 pancreatitis Azithromycin 05/10/2019 Syncope, nausea Bee Pollen Anaphylaxis High 04/02/2018 Also to wasp, hornet, and spider Benzodiazepines Anaphylaxis,Other (see comments) High 12/15/2002 Respiratory arrest after 1 pill And respiratory reaction Carbamazepine Other (see comments) High 04/02/2018 Blood become toxic on low dose Cat Dander Anaphylaxis High 04/02/2018 Asthmatic reaction Codeine Other (see comments) Medium 12/26/2015 Gabapentin Other (see comments) High 02/03/2018 Hornet Venom Anaphylaxis High 10/06/2017 Hydrocodone-Acetaminophe n Anaphylaxis High 04/02/2018 Tongue swelling Hydromorphone Anaphylaxis High 12/26/2015 Throat, tongue, lip swelling Iodinated Contrast Media Other (see comments) High 12/15/2002 Angiodema, swelling, red itchy rash Latex Rash,Swelling Medium 03/25/2011 Leflunomide Other (see comments) 07/16/2005 Seizure reaction Macrolides And Ketolides Other (see comments) 12/15/2002 Other Medium 07/20/2018 asthma Oxycodone Anaphylaxis High 04/02/2018 Tongue swelling Penicillins Anaphylaxis High 12/15/2002 Anaphylactic shock reaction Phenytoin Other (see comments) 12/15/2002 Angiodema Phenytoin Sodium Extended Swelling 04/02/2018 Soles of feet, palms swell and itch Sulfa Antibiotics Other (see comments) 12/15/2002 Tetracyclines & Related Other (see comments) 12/15/2002 Medications allopurinol (ZYLOPRIM) 100 MG tablet Take 200 mg by mouth in the morning. 09/12/2021 Active albuterol HFA (PROVENTIL HFA;VENTOLIN HFA) 108 (90 Base) MCG/ACT inhaler Inhale 2 puffs every 6 (six) hours if needed 06/25/2021 Active cholecalciferol (VITAMIN D-3) 25 MCG (1000 UT) tablet Take 1,000 Units by mouth in the morning. Active colchicine 0.6 MG tablet Take 0.6 mg by mouth Active EPINEPHrine (EPIPEN) 0.3 MG/0.3ML injection syringe Inject 0.3 mg into the shoulder, thigh, or buttocks 11/28/2018 Active Fluticasone-Malik meterol 250-50 MCG/ACT aerosol powder Inhale 1 puff twice a day 09/06/2021 Active hydroxychloroqu ine (PLAQUENIL) 200 MG tablet Take 400 mg by mouth in the morning. 01/25/2022 Active levothyroxine (SYNTHROID, LEVOTHROID) 125 MCG tablet Take 2 tabs daily 05/19/2019 Active losartan (COZAAR) 100 MG tablet Take 1 tablet by mouth 1 (one) time each day 10/29/2021 Active meloxicam (MOBIC) 15 MG tablet Take 15 mg by mouth in the morning. 02/21/2022 Active topiramate (TOPAMAX) 200 MG tablet Take 200 mg by mouth in the morning. 09/06/2021 Active alpha tocopherol (VITAMIN E) 400 units capsule Take by mouth daily Active Multiple Vitamin (MULTIVITAMIN PO) Take 1 tablet by mouth daily Active Active Problems Problem Noted Date Diagnosed Date Nephrolithiasis 03/15/2022 Microscopic hematuria 01/25/2022 Overview (03/13/2022): -Persistent microscopic hematuria in the setting of SLE. Recommend nephrology consult -Recommend CT abdomen to evaluate for kidney stones or other urinary tract lesion. Stage 3a chronic kidney disease 01/05/2019 Overview (03/13/2022): Last Assessment & Plan: Reviewed CKD. PT unuare of dx. Stage seems variable on labs. Likely multifactorial due to NSAIDS, lupus, htn and age-related changes. Pt reassured. Discussed optimizing renal health via limiting nephrotoxic medicaitons, regular monitoring and good hydration. Decrease meloxicam to 7.5 mg PRN (not 15 mg daily), use topicals and acetaminophen preferentially. Essential hypertension 02/10/2018 Overview (03/13/2022): Last Assessment & Plan: BP controlled Discussed pt desired med changes- would not advise decreasing losartan as pt BP in upper range of acceptable. Discussed exercise and weight loss to improve BP If BP consistently low-normal would consider decreasing antihypertensives but would not be advisable at this time Gout 08/28/2017 Overview (03/13/2022): Last Assessment & Plan: She has not had uric acid level checked in last few years. I recommend checking it w next set of labs Hyperlipidemia 08/28/2017 Hypothyroidism 08/28/2017 Overview (03/13/2022): Following w Dr Russo Last Assessment & Plan: Followed with endocrine, Dr. Russo. UTD with labs Systemic lupus erythematosus 07/09/2012 Overview (03/13/2022): Systemic lupus erythematosus dx in her early 30s Last Assessment & Plan: Extensive discussion re: pt need for ongoing specialty care. Pt prefers to see [facility] doctors but does not have consistent transportation, unwilling to engage in remote care as she feels this is poor care and does not feel local specialists can provide her care. While this is unfortunate and not ideal compromise is required as going years without care is likely worse for health outcomes than engaging in current options. Advised that this MD will not be issuing prolonged prescriptions for SLE medications and rheumatologic prescriptions will need to come from the concrete products dispatcher managing these medicaitons. Immunizations Immunization Administration Dates Next Due Influenza (IM) Preservative Free 06/25/2021,06/02 Influenza Split High Dose Pr eservative Free IM 07/12/2019,05/25/2018,06/10/2017,05/20,06/07/2015 Influenza Whole 05/30/2011,08/03/2009 Influenza, Quadrivalent, Wit h Preservative 07/16/2021 Influenza, Unspecified 06/23/2012,2010,06/29/2010,05/15,07/30/2001,08/19/2000 Moderna SARS-COV-2 08/25/2021 Pneumococcal Conjugate 13-Valent 01/06/2017 Pneumococcal Polysaccharide 01/05/2019, 7 Pneumococcal, Unspecified 07/15/2007 Td 07/08/2018 Family History Medical History Relation Comments Kidney disease Daughter Heart attack Father Alzheimer's disease Mother Arthritis Mother Heart disease Mother Relation Status Comments Daughter Father Mother Social History Tobacco Use Types Packs/Day Years Used Date Smoking Tobacco: Never Assessed Alcohol Use Standard Drinks/Week Comments Not Currently 0 (1 standard drink = 0.6 oz pur e alcohol) Comments Unknown Sex and Gender Information Value Date Recorded Sex Assigned at Not on file Legal Sex Female 2:03 PM EDT Gender Identity Not on file Sexual Orientation Not on file Plan of Treatment Health Maintenance Due Date Last Done Comments Influenza Vaccine (Season Ended) 2025 07/16/2021, 06/25/2021, 06/24/2020, Additional history exists Pneumococcal Vaccine: 50+ Years Completed 01/05/2019, 01/06/2017, 07/15/2007, Additional history exists Hepatitis B Vaccine Aged Out No longe r eligible based on patient's age to complete this topic Insurance Medicare [facility] Medicaid [place] Care Teams Police Judge Relationship Specialty Start Date End Date Bertha Graff [address] [place] [address] PCP - General 02/19/22
--- OUTSIDE RECORDS SUMMARY | 2024-12-27 07:39 | XMS_ITS | Clinical Summary ---
Author Organization [address] [facility] Address [address] [place] [address] Phone Care Team Providers Care Mine Engineering Manager Name Role Phone Sara Ramirez MD Primary Care Provider Encounters Date Type Department Care Team Description 11/12/2024 Lab Requisition [facility] [address] [place] [address] Alexander Summers PA Urinary tract infection, site not specified; Hydronephrosis with renal and ureteral calculous obstruction 10/05/2024 Lab Requisition [facility] [address] [place] [address] Alexander Summers PA Urinary tract infection, site not specified 10/04/2024 Lab Requisition [facility] [address] [place] [address] Jaya Bridges MD Calculus of ureter from Last 3 Months Social History Tobacco Use Types Packs/Day Years Used Date Smoking Tobacco: Never Assessed Comments Unknown Sex and Gender Information Value Date Recorded Sex Assigned at Not on file Legal Sex Female 4:21 PM EST Gender Identity Not on file Sexual Orientation Not on file Plan of Treatment Health Maintenance Due Date Last Done Comments COVID-19 Vaccine (#1) 1955 DTaP,Tdap,and Td Vaccines (1 - Tdap) 1967 Pneumococcal Vaccine: 50+ Ye ars (1 of 1 - PCV) 1998 Zoster Vaccines (1 of 2) 1998 Depression Screening 07/31/2022 Falls Risk Assessment 07/31/2022 Hepatitis C Screening 07/31/2022 Medicare Annual Wellness Visit 07/31/2022 Osteoporosis Screening (Bone Density Screening) 07/31/2022 Social Influencers of Health Screening 07/31/2022 RSV Immunization Adult Patie nts (1 - 1-dose 75+ series) 2023 Influenza Vaccine (Season Ended) 2025 HIB Vaccines Aged Out No longer eligi ble based on patient's age to complete this topic HPV Vaccines Aged Out No longer eligi ble based on patient's age to complete this topic Hepatitis A Vaccines Aged Out No long er eligible based on patient's age to complete this topic Hepatitis B Vaccines Aged Out No long er eligible based on patient's age to complete this topic IPV Vaccines Aged Out No longer eligi ble based on patient's age to complete this topic MMR Vaccines Aged Out No longer eligi ble based on patient's age to complete this topic Meningococcal ACWY Vaccine Aged Out N o longer eligible based on patient's age to complete this topic Meningococcal B Vaccine Aged Out No l onger eligible based on patient's age to complete this topic RSV Immunization Patients Un kelsey 20 months Aged Out No longer eligible b ased on patient's age to complete this topic Varicella Vaccines Aged Out No longer eligible based on patient's age to complete this topic Procedures Procedure Name Priority Date/Time Associated Diagnosis Comments CULTURE URINE Routine 11/12/2024 1:30 PM EDT Urinary tract infection, site not specified Hydronephrosis with renal and ureteral calculous obstruction CULTURE URINE Routine 10/05/2024 8:00 AM EST Urinary tract infection, site not specified COMPLETE BLOOD COUNT Routine 10/04/2024 2:21 PM EST Calculus of ureter from Last 3 Months Results * Culture urine (11/12/2024 1:30 PM EDT) Only the most recent of2 resultswithin the time period is included. Culture, Urine No growth 11/13/2024 1:38 PM EDT [facility] Urine Urine specimen obtained by clean catch procedure / Unknown 11/12/2024 1:30 PM EDT 11/12/2024 6:58 PM EDT us Alexander SHETH LAB MICROBIOLOGY - GENERAL ORD ERABLES Final Result [facility] [address] [place] [address], [place] [phone] * (ABNORMAL) Complete blood count (10/04/2024 2:21 PM EST) Pathologist [facility] WBC 8.0 4.8 - 10.8 K/mcL LAB HEMETOLOGY METHOD 10/04/2024 7:27 PM EST [facility] RBC 5.10(H) 3.80 - 4.80 M/mcL LAB HEMETOLOGY METHOD 10/04/2024 7:27 PM [facility] Hemoglobin 15.4 11.5 - 16.0 g/dL LAB HEMETOLOGY METHOD 10/04/2024 7:27 PM [facility] Hematocrit 47.2(H) 35.0 - 47.0 % LAB HEMETOLOGY METHOD 10/04/2024 7:27 PM EST [facility] MCV 92.0 79.0 - 98.0 FL LAB HEMETOLOGY METHOD 10/04/2024 7:27 PM [facility] MCH 30.0 27.0 - 32.0 pcg LAB HEMETOLOGY METHOD 10/04/2024 7:27 PM [facility] MCHC 32.6 32.0 - 37.0 g/dL LAB HEMETOLOGY METHOD 10/04/2024 7:27 PM [facility] RDW 12.5 11.0 - 15.0 % LAB HEMETOLOGY METHOD 10/04/2024 7:27 PM [facility] Platelets 235 130 - 400 K/mcL LAB HEMETOLOGY METHOD 10/04/2024 7:27 PM [facility] MPV 9.2 7.0 - 11.0 FL LAB HEMETOLOGY METHOD 10/04/2024 7:27 PM EST [facility] NRBC 0.0 <1.0 % LAB HEMETOLOGY METHOD 10/04/2024 7:27 PM EST [facility] NRBC Absolute 0.00 <0.10 K/mcL LAB HEMETOLOGY METHOD 10/04/2024 7:27 PM EST [facility] Blood Venous blood specimen / Unknown 10/04/2024 2:21 PM EST 10/04/2024 5:54 PM EST us Jaya Bridges MD LAB BLOOD ORDERABLES Final Result [facility] [address] [place] [address], from Last 3 Months Insurance MEDICAID - [place] [employer] MEDICARE ADVANTAGE Care Teams Mine Engineering Manager Relationship Specialty Start Date End Date Sara Ramirez MD [address] [place] [address] PCP - General 10/15/23
--- OUTSIDE RECORDS SUMMARY | 2024-12-27 07:39 | XMS_ITS | Encounter Summary ---
Author Organization [employer] Address [address] [facility] [address] [place] [address] Care Team Providers Care Car Ferry Captain Name Role Phone Unavailable Primary Care Provider Unavailabl e Encounter Details Date Type Department Care Team (Latest Contact Info) Description 06/23/2019 Abstract [facility] Dental, Provider, DDS Social History Tobacco Use Types Packs/Day Years Used Date Smoking Tobacco: Never Assessed Comments Unknown Sex and Gender Information Value Date Recorded Sex Assigned at Female 10/18/2022 2:51 PM EST Legal Sex Female 5:35 PM EDT Gender Identity Female 10/18/2022 2:51 PM EST Sexual Orientation Choose not to disclose 2022 2:51 PM EST documented as of this encounter Plan of Treatment Upcoming Encounters Date Type Department Care Team (Late st Contact Info) Description 04/19/2025 2:00 PM EDT Office Visit [place] [facility] [address] [place] [address] Sushma Lora documented as of this encounter Visit Diagnoses Not on filedocumented in this encounter
--- OUTSIDE RECORDS SUMMARY | 2024-12-27 07:39 | XMS_ITS | Encounter Summary ---
Author Organization [facility] Address [address] [place] [address] Care Team Providers Care Laborer Ammunition Assembly Name Role Phone Sara Ramirez MD Primary Care Provider [phone] Encounter Details Date Type Department Care Team (Late st Contact Info) Description 11/12/[address] [facility] [address] [facility] [place] [address] Alexander Summers, MERYL [address] [place] [address] Urinary tract infection, site not specified; Hydronephrosis with renal and ureteral calculous obstruction Social History Tobacco Use Types Packs/Day Years Used Date Smoking Tobacco: Never Assessed Comments Unknown Sex and Gender Information Value Date Recorded Sex Assigned at Not on file Legal Sex Female 4:21 PM EST Gender Identity Not on file Sexual Orientation Not on file documented as of this encounter Plan of Treatment Not on file documented as of this encounter Procedures Procedure Name Priority Date/Time Associated Diagnosis Comments CULTURE URINE Routine 11/12/2024 1:30 PM EDT Urinary tract infection, site not specified Hydronephrosis with renal and ureteral calculous obstruction documented in this encounter Results * Culture urine (11/12/2024 1:30 PM EDT) Culture, Urine No growth 11/13/2024 1:38 PM EDT [facility] Urine Urine specimen obtained by clean catch procedure / Unknown 11/12/2024 1:30 PM EDT 11/12/2024 6:58 PM EDT us Alexander [facility] LAB MICROBIOLOGY - GENERAL ORD ERABLES Final Result [facility] [address] [place] [address], [place] [phone] documented in this encounter Visit Diagnoses Diagnosis Urinary tract infection, site not specified Hydronephrosis with renal and ureteral calculous obstruction documented in this encounter Care Teams Laborer Ammunition Assembly Relationship Specialty Start Date End Date Sara Ramirez MD [address] [place] [address] PCP - General 10/15/23 documented as of this encounter
--- OUTSIDE RECORDS SUMMARY | 2024-12-27 07:39 | XMS_ITS | Data Portability ---
Author Organization [facility] Address [address] [place] [address] Assessment Encounter Date Assessment Date Assessment LastModified by Organization Details LastModified Time 10/21/2023 10/21/2023 I provided real -time medical direction via phone for this encounter, and was available for additional phone based assistance as needed. I have reviewed and agree with the Assessment and Plan as documented by the Teacher Of The Deaf/Hard Of Hearing. We discussed the diagnostic uncertainty of home visits and the risk associated with this..The patient given the opportunity to ask questions. Advised need for evaluation in the ED-given her list of allergies she will likely need intravenous antibiotics - i.e.: Vancomycin -I suggested clindamycin or doxycycline as a trial as the ciprofloxacin is not working and the patient has an appointment with [facility], with the engineering manager( Dr. Mascorro) tomorrow. The patient states she does not think she can take either of those although they are not specifically listed on her allergy list. I did discuss w/ her PCP's covering provider (PCP is Sara Ramirez of [facility])Patient is understandably fearful with taking new or [...] to transfer. Report called to Kaylynn PABON [email or web address] Not available 10/22/2023 11:50:01 Plan of Treatment [...] Not available Not available Not available 06/29/2024 [id number] RxNorm Not Available [facility] - production 4 04:13:46 9618 latex environme nt,medica tion Not available Not available Not available 06/29/2024 [id number] RxNorm Not Available [facility] - production 4 04:13:46 9619 Product containin g penicilli n (product) medicatio n Not available Not available Not available 06/29/2024 [id number] 8001 SNOMED Not Available [facility] - production 4 [...] Diagnosis/Indication Diagnosis SNOMED-CT Code Diagnosis ICD10 Code Diagnosis Note [id number] Valeria Maldonado MD [facility] [address] [place] [address] 10/21/2023 16:44:05 10/22/2023 12:38:54 Cellulitis of right lower limb [id number] L03.115 right 2nd toe and foot/possi ble osteomyeli tis Health Concerns Section Related Observation LastModified by Organization Detai ls LastModified Time None Recorded Concern Status LastModified by Organization Details LastModified Time None Recorded Advance Directives Directive None Recorded Payers Encounter Date Sequence Insurance Name Policy Number Policy Cordero Covered Member ID Cordero Member ID Guarantor Name 10/21/2023 1 [facility] - DOS ON OR AFTER 2022 - DUAL ELIGIBLE - HALF-WAY OPTIONS AND ONE CARE (MEDICARE REPLACEMENT/AD VANTAGE - HMO) Ludmila Simpson [id number] Ludmila Simpson Notes Date Note Type Note Provider Name and Address Organization Details Recorded Time 10/21/2023 text/html HPI: generalized convulsive epilepsy, lupus, idiopathic peripheral autonomic neuropathy ................... ................... ................... ................... ................... ................... ................... ........ [facility] Nurse Triage Notes (Mary Jo Foster): Comments: HPI reviewed. No additional information required to process visit ................... ................... ................... ................... ................... ................... ................... ........ Teacher Of The Deaf/Hard Of Hearing Note From Michell Malik: Upon arrival pt used a cane to walk from The door to a chair. A/O x4, pt is pink/cold/dry and not in any immediate respiratory distress. Pt states she began having ? s ymptoms? in her right foot, in the second [...] from the area. Pt states 5/10 pain. [facility] contacted and due to pts hx and allergies pt was recommended to be evaluated in the ER. Pt agreed and 911 was called. [facility] called hospital to alert of pts arrival. Care was transferred to EMS and call was then cleared. Teacher Of The Deaf/Hard Of Hearing Allergies: Azithromycin, Latex, Penicillin ................... ................... ................... ................... ................... ................... ................... ........ Disposition: FulfilledSEGMD:Bryanna ent with multiple significant allergies. In addition to above she has [id number] , with chronic foot pain/numbness and tingling. She was prescribed ciprofloxacin for 7 days on 09/22 and then again a 14-day supply on 10/13/2023. The toe is worsening. The redness is spreading. Patient is unsure if he has had a fever as she is on ibuprofen [id number]. She denies any history of diabetes, she denies chest pain, shortness of breath, nausea vomiting or calf pain Valeria Maldonado MD [address] [place] [address],[address], [place], [address], [facility] 10/22/2023 11:50:11 OBGyn Episode No OBEpisode recorded.
--- OUTSIDE RECORDS SUMMARY | 2024-12-27 07:39 | XMS_ITS | Clinical Summary ---
Author Organization [employer] Address [address] [place] [address] Care Team Providers Care Automation Technician Name Role Phone Unavailable Primary Care Provider Unavailabl e Allergies Active Allergy Reactions Criticality Noted Date Comments Codeine 11/07/2022 Hydromorphone Hcl Anaphylaxis High 12/26/2015 Throat, tongue, lip swelling Hydromorphone-Bupivacai ne-Nacl Anaphylaxis High 12/26/2015 Throat, tongue, lip swelling Iodinated Contrast Media Other High 12/15/2002 Angiodema, swelling, red itchy rash Latex Unknown,Rash,Swelling Medium 03/25/2011 Macrolides And Ketolides Nausea And Vomiting,Unknown,Othe r,Syncope High 12/15/2002 Syncope, nausea Other Medium 07/20/2018 asthma Oxycodone Unknown 08/24/2024 Oxycodone-Acetaminophen Anaphylaxis High 04/02/2018 Tongue swelling Tongue swelling Penicillins 11/07/2022 Sulfa Antibiotics Other 12/15/2002 Tetracyclines & Related Unknown Low 12/15/2002 Wound Dressing Adhesive Unknown 08/24/2024 Medications albuterol 108 (90 Base) MCG/ACT inhaler Inhale 2 puffs every 6 (six) hours if needed. 06/25/2021 Active levothyroxine (Synthroid) 125 MCG tablet Take 2 tabs daily 05/19/2019 Active losartan (Cozaar) 100 MG tablet Take 1 tablet by mouth in the morning. 10/29/2021 Active levETIRAcetam (Keppra) 250 MG tablet TAKE 1/2 TO 1 (ONE-HALF TO ONE) TABLET BY MOUTH BEFORE BED 08/20/2022 Active allopurinol (Zyloprim) 100 MG tablet TAKE 2 TABLETS BY MOUTH ONCE DAILY 03/22/2022 Active colchicine 0.6 MG tablet Take 0.6 mg by mouth if needed each day. Active Gemtesa 75 MG tablet Take 1 tablet by mouth Once per day. Active ciprofloxacin (Cipro) 500 MG tablet Take 1 tablet by mouth every 12 (twelve) hours. Active hydroxychloroqu ine (Plaquenil) 200 MG tablet Take 2 tablets every day by oral route as directed for 90 days. 01/25/2022 Active Encounters Date Type Department Care Team Description 11/15/2024 11:00 AM EDT Office Visit [facility] DENTAL [address] [place] [address] May Freitas DDS Nontraumatic broken or cracked tooth (Primary Dx) from Last 3 Months Social History Tobacco Use Types Packs/Day Years Used Date Smoking Tobacco: Never Assessed Comments Unknown Sex and Gender Information Value Date Recorded Sex Assigned at Female 10/18/2022 2:51 PM EST Legal Sex Female 5:35 PM EDT Gender Identity Female 10/18/2022 2:51 PM EST Sexual Orientation Choose not to disclose 2022 2:51 PM EST Plan of Treatment Upcoming Encounters Date Type Department Care Team (Late st Contact Info) Description 04/19/2025 2:00 PM EDT Office Visit [facility] DENTAL [address] [place] [address] Sushma Lora Health Maintenance Due Date Last Done Comments Depression Screening 1950 Lipid Panel 1948 SDOH Screening 1948 Alcohol/Substance Use Screening 1960 Tobacco Screening 1960 Hepatitis C Screening 1966 Zoster Vaccines (1 of 2) 1998 DTaP/Tdap/Td Vaccines (1 - Tdap) 07/09/2018 07/08/2018 RSV Patients and Patients Aged 60 years or older (1 - 1-dose 75+ series) 2023 COVID-19 Vaccine ( - season) 2024 08/28/2021, 07/16/2021, 11/09/2020 Dental X-Ray: Bitewings 02/12/2025 02/12/20 24, 11/07/2022, 06/18/2021, Additional history exists Dental Oral Exam 02/18/2025 08/19/2024, 06/2024, 11/07/2022, Additional history exists Dental Prophylaxis 02/18/2025 08/19/2024, 0 02/12/2024, 11/07/2022, Additional history exists Dental X-Ray: Full Mouth 02/12/2027 024, 05/27/2018, 04/21/2014 Pneumococcal Vaccine: 50+ Years Completed 01/05/2019, 01/06/2017, 07/15/2007, Additional history exists Influenza Vaccine Completed 06/16/2024, , 05/21/2023, Additional history exists HIB Vaccines Aged Out No longer eligi [...] patient's age to complete this topic Meningococcal Vaccine Aged Out No william daisy eligible based on patient's age to complete this topic RSV under 20 months Aged Out No longe r eligible based on patient's age to complete this topic Rotavirus Vaccines Aged Out No longer eligible based on patient's age to complete this topic Procedures Procedure Name Priority Date/Time Associated Diagnosis Comments 19 CROWN - PORCELAIN/CERAMIC Routine 11/15/2024 11:00 AM EDT Nontraumatic broken or cracked tooth Full PROPHYLAXIS - ADULT Routine 024 2:00 PM EST PERIODIC ORAL EVALUATION - ESTABLISHED PATIENT Routine 08/19/2024 2:00 PM EST INTRAORAL - COMPLETE SERIES OF RADIOGRAPHIC IMAGES Routine 02/12/2024 11:00 AM EDT from Last 3 Months or Most Recently Relevant to Health Maintenance Insurance DENTAL - HSN FULL (MEDICAID) DENTAL - AETNA MEDICARE
--- OUTSIDE RECORDS SUMMARY | 2024-12-27 07:39 | XMS_ITS | Encounter Summary ---
Author Organization [facility] Address [address] [place] [address] Care Team Providers Care Ore Feeder Name Role Phone Sara Ramirez MD Primary Care Provider Encounter Details Date Type Department Care Team (Late st Contact Info) Description 10/04/2024 Lab Requisition [facility] - Main Lab [address] [facility] [place] [address] Jaya Bridges MD [address] [place], [place] [id number] Calculus of ureter Social History Tobacco Use Types Packs/Day Years [...] Procedure Name Priority Date/Time Associated Diagnosis Comments COMPLETE BLOOD COUNT Routine 10/04/2024 2:21 PM EST Calculus of ureter documented in this encounter Results * (ABNORMAL) Complete blood count (10/04/2024 2:21 PM EST) WBC 8.0 4.8 - 10.8 [facility] LAB HEMETOLOGY METHOD 10/04/2024 7:27 PM EST [facility] RBC 5.10(H) 3.80 - 4.80 M/[facility] LAB HEMETOLOGY METHOD 10/04/2024 7:27 PM EST [facility] Hemoglobin 15.4 11.5 - 16.0 g/dL LAB HEMETOLOGY METHOD 10/04/2024 7:27 PM [facility] Hematocrit 47.2(H) 35.0 - 47.0 % LAB HEMETOLOGY METHOD 10/04/2024 7:27 PM [facility] MCV 92.0 79.0 - 98.0 FL [...] 7:27 PM [facility] NRBC 0.0 <1.0 % LAB HEMETOLOGY METHOD 10/04/2024 7:27 PM [facility] LAB NRBC Absolute 0.00 <0.10 K/mcL LAB HEMETOLOGY METHOD 10/04/2024 7:27 PM [facility] Blood Venous blood specimen / Unknown 10/04/2024 2:21 PM EST 10/04/2024 5:54 PM EST us Jaya Bridges MD LAB BLOOD ORDERABLES Final Result [facility] [address] [place], [place] [address] [phone] documented in this encounter Visit Diagnoses Diagnosis Calculus of ureter documented in this encounter Care Teams Ore Feeder Relationship Specialty Start Date End Date Sara Ramirez MD [address] [place] [address] PCP - General 10/15/23 documented as of this encounter
--- OUTSIDE RECORDS SUMMARY | 2024-12-27 07:39 | XMS_ITS | Encounter Summary ---
Author Organization [facility] Address [address] [place] [address] Care Team Providers Care E Merchant Name Role Phone Sara Ramirez MD Primary Care Provider Encounter Details Date Type Department Care Team (Late st Contact Info) Description 10/05/2024 Lab Requisition [facility] - Main Lab [address] [facility] [place] [address] Alexander Summers, MERYL [address] [place] [phone] Urinary tract infection, site not specified Social History Tobacco Use Types Packs/Day Years [...] Date/Time Associated Diagnosis Comments CULTURE URINE Routine 10/05/2024 8:00 AM EST Urinary tract infection, site not specified documented in this encounter Results * (ABNORMAL) Culture urine (10/05/2024 8:00 AM EST) Culture, Urine <100 CFU/mL Gram Positive Cocci(A) 10/07/2024 10:34 AM EST [facility] Comment: The organism value for this result has been updated. These results have been appended to the previously preliminary verified report. Culture, Urine <100 CFU/mL Gram negative bacilli(A) 10/07/2024 10:34 AM EST [facility] Comment: The organism value for this result has been updated. These results have been appended to the previously preliminary verified report. Urine Urinary bladder structure / Unknown 10/05/2024 8:00 AM EST 10/05/2024 2:22 PM EST us Alexander [facility] LAB MICROBIOLOGY - GENERAL ORD ERABLES Final Result [facility] [address] [place] [address], documented in this encounter Visit Diagnoses Diagnosis Urinary tract infection, site not specified documented in this encounter Care Teams E Merchant Relationship Specialty Start Date End Date Sara Ramirez MD [address] [place] [phone] PCP - General 10/15/23 documented as of this encounter
[2024-12-27 07:46] VITALS: BP 120/72; PULSE 72; O2SAT 100; BMI 28.9
== END 2024-12-27 08:25 | disposition home or self-care (01) ==
LOC: HO.RHE 07:37
PROVIDERS: PCP Family Medicine; Visit Provider Student in an Organized Health Care Education/Training Program
DX: M32.19 Other organ or system involvement in systemic lupus erythematosus (principal); M25.561 Pain in right knee; G89.29 Other chronic pain; M10.9 Gout, unspecified; G57.61 Lesion of plantar nerve, right lower limb; M80.00XA Age-related osteoporosis with current pathological fracture, unspecified site, initial encounter for fracture; Z79.899 Other long term (current) drug therapy; Z51.81 Encounter for therapeutic drug level monitoring; Z79.83 Long term (current) use of bisphosphonates
CPT/HCPCS: 99214; G2211

== ENCOUNTER → 2024-12-27 07:37 | Outpatient (BNVA) | payer MEDICARE, MEDICAID, SELFPAY | PROVIDERS: PCP Family Medicine; Visit Provider Student in an Organized Health Care Education/Training Program | DX: M32.19 Other organ or system involvement in systemic lupus erythematosus (principal); I10 Essential (primary) hypertension; I73.9 Peripheral vascular disease, unspecified; M25.561 Pain in right knee; G89.29 Other chronic pain; M10.9 Gout, unspecified; G57.61 Lesion of plantar nerve, right lower limb; M80.00XA Age-related osteoporosis with current pathological fracture, unspecified site, initial encounter for fracture; X58.XXXA Exposure to other specified factors, initial encounter; Y93.9 Activity, unspecified; Y92.9 Unspecified place or not applicable; Y99.9 Unspecified external cause status; Z89.421 Acquired absence of other right toe(s); Z51.81 Encounter for therapeutic drug level monitoring; Z79.83 Long term (current) use of bisphosphonates; Z79.899 Other long term (current) drug therapy | CPT/HCPCS: 99212 ==

== ENCOUNTER 2025-01-27 10:53 | Outpatient (AMB) | payer MEDICARE, MEDICAID, SELFPAY ==
[2025-01-27 11:02] VITALS: BMI 29.2
--- NOTE | 2025-01-27 11:02 | MHC.OFFVIS ---
Vital Signs 01/27/25 11:02 Height 5 ft 6 in Weight 181 lb BMI 29.2 Intake Visit Reasons: follow up for toe discoloration Intake Note: follow up for toe discoloration on left 2nd toe, history of right 2nd toe discoloration. Started a couple weeks ago. Air Tucker Required: No Accompanied by: Self / Same As Patient Allergies azathioprine Allergy (Severe, Verified 01/27/25 11:09) Pancreatitis carbamazepine Adverse Reaction (Severe, Verified 01/27/25 11:09) Unknown diazepam [From Valium] Adverse Reaction (Severe, Verified 01/27/25 11:09) Anaphylaxis Iodinated Contrast Media Adverse Reaction (Severe, Verified 01/27/25 11:09) Angioedema, swelling, rash latex Adverse Reaction (Severe, Verified 01/27/25 11:09) Rash Penicillins Adverse Reaction (Severe, Verified 01/27/25 11:09) Anaphylaxis Sulfa (Sulfonamide Antibiotics) Adverse Reaction (Severe, Verified 01/27/25 11:09) Unknown azithromycin Adverse Reaction (Intermediate, Verified 01/27/25 11:09) Syncope, nausea duloxetine [From Cymbalta] Adverse Reaction (Intermediate, Verified 01/27/25 11:09) Dizziness gabapentin Adverse Reaction (Intermediate, Verified 01/27/25 11:09) Seizure hydrocodone Adverse Reaction (Intermediate, Verified 01/27/25 11:09) Tongue swelling hydromorphone [From Dilaudid] Adverse Reaction (Intermediate, Verified 01/27/25 11:09) Anaphylaxis leflunomide [From Arava] Adverse Reaction (Intermediate, Verified 01/27/25 11:09) Seizure cat pelt standardized allergenic ex Adverse Reaction (Unknown, Verified 01/27/25 11:09) Asthma Macrolide Antibiotics Adverse Reaction (Unknown, Verified 01/27/25 11:09) Unknown phenytoin Adverse Reaction (Unknown, Verified 01/27/25 11:09) Angioedema Tetracyclines Adverse Reaction (Unknown, Verified 01/27/25 11:09) Unknown Benzodiazepines Adverse Reaction (Verified 01/27/25 11:09) Seizure codeine Adverse Reaction (Verified 01/27/25 11:09) bronchospasm oxycodone Adverse Reaction (Verified 01/27/25 11:09) Anaphylaxis leflunomide Adverse Reaction (Intermediate, Uncoded 01/27/25 11:09) seizures HPI HPI follow up for toe discoloration: Details: Ludmila is presenting today for concerns of left 2nd toe discoloration, for a couple of weeks now. The pt was disappointed to be seeing the PA and not Dr Sung this morning. She states she just woke up to find discoloration on the base of the toenail and swelling of the toe. She denies any injuries or wounds to the area. She states her shoes are well-fitting. She states the same thing happened with the second toe of her right foot, and she ended up having to have an amputation at [facility], which she states has completely messed up her entire right foot/leg. She showed a picture on her phone of the toe when it started several weeks ago. She states she has constant pain in both legs/feet from the hip down the sides of her legs to the tips of her toes. She states the pain is worse with ambulation, when stepping on the toes. She does have a hx of a left hip replacement in 2007, which she states has been giving her problems. She also has a medical hx pertinent for SLE and Xbekufj-Pgoio-Cppen disorder. She has never smoked and is not a diabetic. She was previously seen here one year ago for toe discoloration/PAD, and US was negative. [facility] Medical History Gout Peripheral vascular disease Vasculopathy Kidney stone on right side Ulcerative colitis Cervical cancer Difficulty speaking Noninfectious gastroenteritis Lupus erythematosus Mononeuritis Low back pain Sprain of foot Brachial (cervical) neuritis Gouty arthropathy Dysphagia Edema of extremity Joint pain of ankle and foot Hip pain Idiopathic peripheral autonomic neuropathy Status epilepticus, generalized convulsive Hyperlipemia Degenerative joint disease Systemic lupus erythematosus Inflammatory disorder of jaw Neck pain Mycosis Benign essential hypertension History of malignant neoplasm of thyroid Postoperative hypothyroidism Surgical History History of foot surgery History of kidney surgery H/O lithotripsy Status post total hip replacement, left Hx of total thyroidectomy History of total hysterectomy with bilateral salpingo-oophorectomy (BSO) Hx of appendectomy Hx of tonsillectomy Family History Mother Hyperlipidemia Thyroid cancer Maternal Grandmother Thyroid cancer Social History Household Members: None Alcohol intake: never Patient Tobacco Use Status: Never used Tobacco Current occupational status: retired Current occupation: used to work as a psychotherapist Review of Systems Const Reports as per HPI and Denies weakness ENT Reports Normal hearing present and Denies dizziness Card Reports as per HPI, Denies chest pain, Denies chest pain at rest, Denies chest pain with activity, Denies dyspnea and Denies dyspnea on exertion Resp Reports as per HPI, Denies cough, Denies dyspnea and Denies dyspnea on exertion GI Reports as per HPI, Denies abdominal pain, Denies nausea and Denies vomiting Musc Denies numbness Skin/Breast Reports as per HPI, Denies erythema and Denies wounds Neuro Reports Normal hearing present, Denies dizziness, Denies numbness, Denies Sensory deficit (Neuro) and Denies weakness Psych Reports no additional complaints Endo Reports no additional complaints Physical Exam Vital Signs: BMI result Body Mass Index 29.2 Const General: healthy appearing and no acute distress Orientation/consciousness: patient oriented x3 HEENT Head: Yes normal to inspection Ears: hearing grossly normal bilaterally Mouth: Normal oral and palatal mucosa present Resp Effort & Inspection: normal respiratory effort and able to speak in complete sentences Auscultation: clear to auscultation bilaterally Cardio Jugular venous distension: no JVD Rate: regular rate Rhythm: regular rhythm Heart sounds: S1 normal heart sound present and S2 normal heart sound present Bruits: no abdominal aortic bruits, no carotid bruits, no femoral bruits and no renal bruits Peripheral pulses: Peripheral pulses 2+ throughout GI Inspection: Yes normal to inspection Palpation (GI): No Abdominal aortic bruit present Skin General skin exam: no rashes or lesions noted Wounds: no wounds Hair: normal Neuro General: patient oriented x3 Cranial nerves: Yes Normal hearing present Cognition (Neuro): normal cognition Gait exam (Neuro): Normal gait present Motor exam (neuro): 5/5 motor strength present throughout Sensory Exam: No Sensory deficit (Neuro) Extrem Other: Left 2nd toe: no bruising/discoloration noted. Foot is cool to the touch. No erythema, wounds, or injuries noted. Palpable DP pulse. Full active and passive ROM of the toe and foot noted. General: Yes normal to inspection, Yes full ROM, Yes capillary refill normal and Yes normal gait Assessment & Plan Assessment & Plan (1) PAD (peripheral artery disease): Code(s): I73.9 - Peripheral vascular disease, unspecified Category: Medical Plan: Ludmila is presenting today with concerns of left second toe discoloration. She states she just woke up with discoloration on the toe several weeks ago. She states this is a similar presentation that occurred on her right second toe, which eventually had to be amputated at [facility]. When compared to the picture that she showed on her phone, the discoloration has disappeared. She does continue to endorse pain when stepping down on the toes, a constant pain. We did review the arterial duplex US from last year, which were negative with ABIs within normal limits; she was advised to follow up prn. I discussed with her that we will order another arterial duplex US. I discussed with her that if things change or worsen before the US, to reach back out to us. We will have her follow back up with us after the US is completed. Thank you for allowing us to participate in the patient's care. If there are any questions or concerns, please do not hesitate to reach out to us. Orders: Orders US arterial duplex LE BI 1 Week I73.9 - Peripheral vascular disease, unspecified Coding Level of Care Code Est Pt Level 4 (07488) Diagnoses PAD (peripheral artery disease) I73.9
== END 2025-01-27 11:26 | disposition home or self-care (01) ==
LOC: HO.HVS 10:54
PROVIDERS: PCP Family Medicine; Visit Provider Physician Assistant Surgical
DX: I73.9 Peripheral vascular disease, unspecified (principal)
CPT/HCPCS: 99214

== ENCOUNTER → 2025-01-27 10:53 | Outpatient (BNVA) | payer MEDICARE, MEDICAID, SELFPAY | PROVIDERS: PCP Family Medicine; Visit Provider Physician Assistant Surgical | DX: I73.9 Peripheral vascular disease, unspecified (principal) | CPT/HCPCS: 99212 ==

== ENCOUNTER 2025-03-10 14:07 | Outpatient (REF) | payer MEDICARE, MEDICAID, SELFPAY ==
--- NOTE | ~2025-03-10 | US_ITS ---
EXAMINATION: Noninvasive assessment of the bilateral lower extremities with ARTERIAL DUPLEX, ANKLE BRACHIAL INDICES (ABIs), and PULSE VOLUME RECORDINGS (PVRs). CLINICAL INFORMATION: Peripheral vascular disease TECHNIQUE: Duplex Doppler techniques with waveform analysis and measurement of velocities in the bilateral common femoral, profunda femoris, superficial femoral, popliteal and tibial arteries were performed. Additionally, ankle pulse volume recordings, ankle pressure measurements and ankle brachial indices were obtained of the lower extremity arterial system bilaterally. The study was performed only at rest. COMPARISON: None FINDINGS: Calcified plaques throughout the interrogated arteries. DIRECT DUPLEX DOPPLER FINDINGS: RIGHT LEG: Common femoral artery: 59 cm/s, phasicity: Biphasic. Profunda femoris artery: 39 cm/s, phasicity: Biphasic. Superficial femoral artery (proximal): 52 cm/s, phasicity: Triphasic. Superficial femoral artery (mid): 48 cm/s, phasicity: Triphasic. Superficial femoral artery (distal): 71 cm/s, phasicity: Triphasic Popliteal artery: 65 cm/s, phasicity: Triphasic. Posterior tibial artery: 33 cm/s, phasicity: Biphasic. Peroneal artery: No color Doppler flow. Anterior tibial artery: 75 cm/s, phasicity: Monophasic. Dorsalis pedis artery: 56 cm/s, phasicity:Monophasic. LEFT LEG: Common femoral artery: 63 cm/s, phasicity: Triphasic. Profunda femoris artery: 42 cm/s, phasicity: Biphasic. Superficial femoral artery (proximal): 66 cm/s, phasicity: Triphasic. Superficial femoral artery (mid): 53 cm/s, phasicity: Triphasic. Superficial femoral artery (distal): 86 cm/s, phasicity: Triphasic. Popliteal artery: 49 cm/s, phasicity: Triphasic. Posterior tibial artery: 40 cm/s, phasicity: Monophasic. Peroneal artery: No color Doppler flow. Anterior tibial artery: 71 cm/s, phasicity: Monophasic. Dorsalis pedis artery: 29 cm/s, phasicity: Monophasic. BRACHIAL PRESSURES: Right: 156 Left: 140 ANKLE PRESSURES: Right: PT 174, DP 184 Left: PT 174, DP 154 ANKLE-BRACHIAL INDEX: Right: 1.18 Left: 1.12 ANKLE PVR WAVEFORMS: Right: Abnormal Left: Abnormal US/US arterial duplex BI w/ REJI IMPRESSION: Right leg: Moderate to severe inflow disease anterior tibialis and dorsalis pedis arteries. Slow flow versus occluded peroneal artery. Left leg: Moderate to severe inflow disease from the posterior tibialis to the dorsalis pedis arteries. Slow flow versus occluded peroneal artery. REJI Reference: - >1.4 = calcified vessels - 0.9 - 1.4 = normal - no significant arterial disease - 0.7 - 0.89 = mild peripheral arterial disease - 0.51 - 0.69 = moderate peripheral arterial disease - 0.50 = severe peripheral arterial disease - < .30 = critical arterial disease Electronically signed by: Marco Antonio Bingham MD 03/11/2025 07:52 AM EDT
--- OUTSIDE RECORDS SUMMARY | 2025-03-10 14:17 | XMS_ITS | Clinical Summary ---
Author Organization [facility], Address [address] [address] Phone Care Team Providers Care Public Transit Trolley Driver Name Role Phone Bertha Graff Primary Care Provider [phone] Allergies Active Allergy Reactions Criticality Noted Date [...] ongoing specialty care. Pt prefers to see [facility] doctors but does not have consistent transportation, [...] prescriptions will need to come from the gum machine filler managing these medicaitons. Immunizations Immunization Administration Dates [...] Due Date Last Done Comments Influenza Vaccine (#1) 2025 , 06/25/2021, 06/24/2020, Additional history exists Pneumococcal Vaccine: 50+ Years Completed 01/05/2019, 01/06/2017, 07/15/2007, Additional history exists Hepatitis B Vaccine Aged Out No longe r eligible based on patient's age to complete this topic Insurance Medicare [facility] Medicaid [place] Care Teams Public Transit Trolley Driver Relationship Specialty Start Date End Date Bertha Graff [address] [place] [address] PCP - General 02/19/22
--- OUTSIDE RECORDS SUMMARY | 2025-03-10 14:17 | XMS_ITS | Clinical Summary ---
Author Organization [employer] Address [address] [place] [address] Care Team Providers Care Family Coach Name Role Phone Sivan Tom Unavailable Unavailable Allergies Active Allergy Reactions Criticality Noted Date [...] Encounters Date Type Department Care Team Description 02/10/2025 Patient Outreach Case Management [address] [place] [address] [facility] 02/10/2025 Patient Outreach Case Management [address] [place] [address] [facility] 01/25/2025 11:00 AM EDT Office Visit [facility] DENTAL [address] [place] [address] May Freitas DDS Defective dental rastafarian (Primary Dx) from Last 3 Months Social [...] Description 04/19/2025 2:00 PM EDT Office Visit [facility] DENTAL [address] [place] [address] Sushma Lora Health Maintenance Due Date Last Done Comments Depression Screening 1950 Lipid Panel 1948 SDOH Screening 1948 Alcohol/Substance Use Screening 1960 Tobacco Screening 1960 Hepatitis C Screening 1966 Zoster Vaccines (1 of 2) 1998 DTaP/Tdap/Td Vaccines (1 - Tdap) 07/09/2018 07/08/2018, 07/08/2018 RSV Patients and Patients Aged 60 years or older (1 - 1-dose 75+ series) 2023 COVID-19 Vaccine ( season) 2024 08/28/2021, 07/16/2021, 11/09/2020 Dental X-Ray: Bitewings 02/12/2025 02/12/20 24, 11/07/2022, 06/18/2021, Additional history exists Dental Oral Exam 02/18/2025 08/19/2024, 06/2024, 11/07/2022, Additional history exists Dental Prophylaxis 02/18/2025 08/19/2024, 0 02/12/2024, 11/07/2022, Additional history exists Influenza Vaccine (#1) 2025 , 05/23/2023, 06/24/2022, Additional history exists Dental X-Ray: Full Mouth 02/12/2027 024, 05/27/2018, 04/21/2014 Pneumococcal Vaccine: 50+ Years Completed 01/05/2019, 01/06/2017, 07/15/2007, Additional history exists HIB Vaccines Aged Out [...] Procedure Name Priority Date/Time Associated Diagnosis Comments NO CHARGE - REDO PROCEDURE Routine 01/25/2025 11:00 AM EDT Defective dental rastafarian Full PROPHYLAXIS - ADULT Routine 024 2:00 PM EST PERIODIC ORAL EVALUATION - ESTABLISHED PATIENT Routine 08/19/2024 2:00 PM EST INTRAORAL - COMPLETE SERIES OF RADIOGRAPHIC IMAGES Routine 02/12/2024 11:00 AM EDT from Last 3 Months or Most Recently Relevant to Health Maintenance Insurance DENTAL - HSN FULL (MEDICAID) DENTAL - [employer] MEDICARE Care Teams Family Coach Relationship Specialty Start Date End Date Sivan Tom [facility] Navigator [facility] 02/14/25
--- OUTSIDE RECORDS SUMMARY | 2025-03-10 14:17 | XMS_ITS | Data Portability ---
Author Organization [facility], [facility] Address [address] [place] [address] Assessment Encounter Date Assessment Date Assessment LastModified by Organization Details LastModified Time 10/21/2023 10/21/2023 I provided real -time medical direction via phone for this encounter, and was available for additional phone based assistance as needed. I have reviewed and agree with the Assessment and Plan as documented by the Chief Marketing Officer. We discussed the diagnostic uncertainty of home visits and the risk associated with this..The patient given the opportunity to ask questions. Advised need for evaluation in the ED-given her list of allergies she will likely need intravenous antibiotics - i.e.: Vancomycin -I suggested clindamycin or doxycycline as a trial as the ciprofloxacin is not working and the patient has an appointment with [facility], with the optical manufacturing technician( Dr. Mascorro) tomorrow. The patient states she [...] to transfer. Report called to Kaylynn PABON [email or web address] Not available 10/22/2023 11:50:01 Plan of Treatment [...] Not available Not available Not available 06/29/2024 49124 RxNorm Not Available [facility] - production 4 04:13:46 9618 latex environme nt,medica tion Not available Not available Not available 06/29/2024 55597 91 RxNorm Not Available [facility] - production 4 04:13:46 9619 Product containin g penicilli n (product) medicatio n Not available Not available Not available 06/29/2024 [id number] SNOMED Not Available [facility] - production [...] blood by Pulse oximetry Body temperature Systolic And Diastolic Provider Name and Address Organization Details Last Updated DateTime 4 18 /min 87 /min 99 % 99 % 98.9 [degF] 160/98 mm[Hg] Not Available [facility] - production 4 [...] SNOMED-CT Code Diagnosis ICD10 Code Diagnosis Note [id number] Valeria Maldonado MD Main - [facility] [address] [place] [address] 10/21/2023 16:44:05 10/22/2023 12:38:54 Cellulitis of right lower limb [id number] L03.115 right 2nd toe and foot/possi ble osteomyeli tis Health Concerns Section Related Observation LastModified by Organization Detai ls LastModified Time None Recorded Concern Status LastModified by Organization Details LastModified Time None Recorded Advance Directives Directive None Recorded Payers Insurance Date Sequence Insurance Name Policy Number Policy Cordero Covered Member ID Cordero Member ID Guarantor Name 10/21/2023 1 [facility] - DOS ON OR AFTER 2022 - DUAL ELIGIBLE - GROUP HOME OPTIONS AND ONE CARE (MEDICARE REPLACEMENT/AD VANTAGE - HMO) Ludmila Simpson [id number] Ludmila Simpson Notes Date Note Type Note Provider Name and Address Organization Details Recorded Time 10/21/2023 text/html HPI: generalized convulsive epilepsy, lupus, idiopathic peripheral autonomic neuropathy ................... ................... ................... ................... ................... ................... ................... ........ CRC Nurse Triage Notes (Mary Jo Foster): Comments: HPI reviewed. No additional information required to process visit ................... ................... ................... ................... ................... ................... ................... ........ Chief Marketing Officer Note From Michell Malik: Upon arrival pt used a cane to walk from The door to a chair. A/O x4, pt is pink/cold/dry and not in any immediate respiratory distress. Pt states she began having symptoms in her right foot, in the second toe since June. Pt states these symptoms became worse in September. At first, the toe bubbled and pt punctured it with a needle. Pt stated thick, reddish brown fluid was released. Then pt s toe became increasingly warm, red, swollen [...] from the area. Pt states 5/[address] [facility] contacted and due to pts hx and allergies pt was recommended to be evaluated in the ER. Pt agreed and [address] [facility] called hospital to alert of pts arrival. Care was transferred to EMS and call was then cleared. Chief Marketing Officer Allergies: Azithromycin, Latex, Penicillin ................... ................... ................... ................... ................... ................... ................... ........ Disposition: FulfilledSEGMD:Bryanna ent with multiple significant allergies. In addition to above she has Vwnwntu-Xvovr-Wxizr , with chronic foot pain/numbness and tingling. She was prescribed ciprofloxacin for 7 days on 09/22 and then again a 14-day supply on 10/13/2023. The toe is worsening. The redness is spreading. Patient is unsure if he has had a fever as she is on ibuprofen dxnfxz-wug-frzem. She denies any history of diabetes, she denies chest pain, shortness of breath, nausea vomiting or calf pain Valeria Maldonado MD [address] [place] [address],[address], [place], [address], [facility] 10/22/2023 11:50:11 OBGyn Episode No OBEpisode recorded.
== END 2025-03-10 14:08 | disposition home or self-care (01) ==
LOC: HO.US 14:07
PROVIDERS: Absent Provider Internal Medicine; PCP Family Medicine; Visit Provider Physician Assistant Surgical
DX: I73.9 Peripheral vascular disease, unspecified (principal)
CPT/HCPCS: 93922; 93925

== ENCOUNTER → 2025-03-10 14:09 | Outpatient (BNV) | payer MEDICARE, MEDICAID, SELFPAY | PROVIDERS: Absent Provider Internal Medicine; PCP Family Medicine; Visit Provider Radiology Diagnostic Radiology | DX: I70.203 Unspecified atherosclerosis of native arteries of extremities, bilateral legs (principal) | CPT/HCPCS: 93922; 93925 ==

== ENCOUNTER 2025-03-16 08:44 | Outpatient (REF) | payer MEDICARE, MEDICAID, SELFPAY ==
--- NOTE | ~2025-03-16 | XR_ITS ---
EXAMINATION: XR KNEE, RIGHT CLINICAL INFORMATION: M25.561 - Pain in right knee COMPARISON: None available. TECHNIQUE: Three views of the right knee. FINDINGS: There is severe narrowing of the lateral joint space which has an undulating contour. There is mild narrowing of the medial joint space. There is lateral patellar tilt. There are large marginal osteophytes involving the lateral patellofemoral joint and lateral joint line. There are small marginal spurs along the medial joint line. A small amount joint fluid is visible in the suprapatellar pouch. On lateral view, there is evidence of periosteitis with periosteal new bone formation along the diaphysis of the fibula. On the frontal view, it appears more smooth in nature and uniform. XR/XR knee RT 3V IMPRESSION: Severe osteoarthritis involving the lateral joint space and lateral patellofemoral joint. There is lateral patellar tilt. 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 There is evidence of periosteal reaction along the diaphysis of the fibula. Hypertrophic osteoarthropathy is associated with numerous underlying etiologies including venous insufficiency, pulmonary disease, gastrointestinal disease, and lung cancer. Electronically signed by: Hector Ortez MD 03/16/2025 01:26 PM EDT
--- OUTSIDE RECORDS SUMMARY | 2025-03-17 08:56 | XMS_ITS | Clinical Summary ---
Author Organization [employer] Address [address] [place] [address] Care Team Providers Care Fire Engineer Name Role Phone Sivan Tom Unavailable Unavailable [...] Department Care Team Description 02/10/2025 Patient Outreach [facility] Case Management [address] [place] [address] [facility]25 Patient Outreach [facility] Case Management [address] [place] [address] [facility]/25/[facility] 11:00 AM EDT Office Visit [facility] DENTAL [address] [place] [address] May Freitas DDS Defective dental oriental orthodox (Primary Dx) from Last 3 Months Social [...] Description 04/19/2025 2:00 PM EDT Office Visit [facility] DENTAL [address] [place] [address] Sushma Lora Health Maintenance Due Date Last [...] Routine 01/25/2025 11:00 AM EDT Defective dental oriental orthodox Full PROPHYLAXIS - ADULT Routine 024 2:00 PM EST PERIODIC ORAL EVALUATION - ESTABLISHED PATIENT Routine 08/19/2024 2:00 PM EST INTRAORAL - COMPLETE SERIES OF RADIOGRAPHIC IMAGES Routine 02/12/2024 11:00 AM EDT from Last 3 Months or Most Recently Relevant to Health Maintenance Insurance DENTAL - HSN FULL (MEDICAID) DENTAL - [employer]ET[employer] MEDICARE Care Teams Fire Engineer Relationship Specialty Start Date End Date Sivan Tom Mitchell [facility] Navigator Financial Counseling and Assistance Services 02/14/25
--- OUTSIDE RECORDS SUMMARY | 2025-03-17 08:56 | XMS_ITS | Clinical Summary ---
Author Organization [facility], Address [address] [address] Phone Care Team Providers Care Salesperson Burial Needs Name Role Phone Bertha Graff Primary Care Provider [phone] Allergies Active Allergy Reactions Criticality Noted Date [...] ongoing specialty care. Pt prefers to see [facility] but does not have consistent transportation, [...] prescriptions will need to come from the community service director managing these medicaitons. Immunizations Immunization Administration Dates [...] [facility] Medicaid [place] Care Teams Salesperson Burial Needs Relationship Specialty Start Date End Date Bertha Graff [address] [place] [address] PCP - General 02/19/22
--- OUTSIDE RECORDS SUMMARY | 2025-03-17 08:56 | XMS_ITS | Encounter Summary ---
Author Organization [facility] Address [address] [place] [address] Care Team Providers Care Overlock Waistline Joiner Name Role Phone Sara Ramirez MD Primary Care Provider Encounter Details Date Type Department Care Team (Late st Contact Info) Description 10/04/2024 Lab Requisition [facility] - Main Lab [address] [facility] [place] [address] Jaya Bridges MD [address] [place], [place] [id number] Calculus of ureter Social History Tobacco Use [...] PM EST) WBC 8.0 4.8 - 10.8 K/[facility] LAB HEMETOLOGY METHOD 10/04/2024 7:27 PM EST [facility] LAB RBC 5.10(H) 3.80 - 4.80 M/mcL LAB HEMETOLOGY METHOD 10/04/2024 7:27 PM EST [facility] LAB Hemoglobin 15.4 11.5 - 16.0 g/dL LAB HEMETOLOGY METHOD 10/04/2024 7:27 PM [facility] LAB Hematocrit 47.2(H) 35.0 - 47.0 % LAB HEMETOLOGY METHOD 10/04/2024 7:27 PM [facility] LAB MCV 92.0 79.0 - 98.0 FL LAB HEMETOLOGY METHOD 10/04/2024 7:27 PM [facility] LAB MCH 30.0 27.0 - 32.0 pcg LAB HEMETOLOGY METHOD 10/04/2024 7:27 PM [facility] LAB MCHC 32.6 32.0 - 37.0 g/dL LAB HEMETOLOGY METHOD 10/04/2024 7:27 PM [facility] LAB RDW 12.5 11.0 - 15.0 % LAB HEMETOLOGY METHOD 10/04/2024 7:27 PM [facility] LAB Platelets 235 130 - 400 K/mcL LAB HEMETOLOGY METHOD 10/04/2024 7:27 PM [facility] LAB MPV 9.2 7.0 - 11.0 FL LAB HEMETOLOGY METHOD 10/04/2024 7:27 PM [facility] LAB NRBC 0.0 <1.0 % LAB HEMETOLOGY METHOD 10/04/2024 7:27 PM [facility] LAB NRBC Absolute 0.00 <0.10 K/mcL LAB HEMETOLOGY METHOD 10/04/2024 7:27 PM [facility] LAB Blood Venous blood specimen / Unknown 10/04/2024 2:21 PM EST 10/04/2024 5:54 PM EST us Jaya Bridges MD LAB BLOOD ORDERABLES Final Result [facility] LAB [address] [place], [place] [address] [phone] documented in this encounter Visit Diagnoses Diagnosis Calculus of ureter documented in this encounter Care Teams Overlock Waistline Joiner Relationship Specialty Start Date End Date Sara Ramirez MD [address] [place] [address] PCP - General 10/15/23 documented as of this encounter
== END 2025-03-16 08:45 | disposition home or self-care (01) ==
LOC: HO.HOSX 08:44
PROVIDERS: Visit Provider Orthopaedic Surgery
DX: M17.11 Unilateral primary osteoarthritis, right knee (principal); M25.561 Pain in right knee; Z79.899 Other long term (current) drug therapy
CPT/HCPCS: 73562; 99202

== ENCOUNTER 2025-03-16 12:46 | Outpatient (AMB) | payer MEDICARE, MEDICAID, SELFPAY ==
--- NOTE | 2025-03-16 12:49 | MHC.OFFVIS ---
Vital Signs 03/16/25 12:50 Height 5 ft 6 in Weight 181 lb BMI 29.2 Intake Visit Reasons: SENIOR JAVA PROGRAMMER Pain in right knee Intake Note: Ludmila is a 74 year old female who presents with complaints of progressively worsening right knee pain. She describes her pain as sharp in nature. She recently had a cortisone injection which gave her minimal relief. She has failed the last 3 months of conservative treatment which has included Tylenol, anti-inflammatory medicines, physical therapy exercises and a home exercise program. She does walk with a crutch because of her pain. At this point her right knee pain is interfering with her activities of daily living and her ability to sleep well through the night. She wishes to hold off on right total knee replacement surgery for as long as possible. Allergies azathioprine Allergy (Severe, Verified 03/16/25 12:50) Pancreatitis carbamazepine Adverse Reaction (Severe, Verified 03/16/25 12:50) Unknown diazepam (From Valium) Adverse Reaction (Severe, Verified 03/16/25 12:50) Anaphylaxis Iodinated Contrast Media Adverse Reaction (Severe, Verified 03/16/25 12:50) Angioedema, swelling, rash latex Adverse Reaction (Severe, Verified 03/16/25 12:50) Rash Penicillins Adverse Reaction (Severe, Verified 03/16/25 12:50) Anaphylaxis Sulfa (Sulfonamide Antibiotics) Adverse Reaction (Severe, Verified 03/16/25 12:50) Unknown azithromycin Adverse Reaction (Intermediate, Verified 03/16/25 12:50) Syncope, nausea duloxetine (From Cymbalta) Adverse Reaction (Intermediate, Verified 03/16/25 12:50) Dizziness gabapentin Adverse Reaction (Intermediate, Verified 03/16/25 12:50) Seizure hydrocodone Adverse Reaction (Intermediate, Verified 03/16/25 12:50) Tongue swelling hydromorphone (From Dilaudid) Adverse Reaction (Intermediate, Verified 03/16/25 12:50) Anaphylaxis leflunomide (From Arava) Adverse Reaction (Intermediate, Verified 03/16/25 12:50) Seizure cat pelt standardized allergenic ex Adverse Reaction (Unknown, Verified 03/16/25 12:50) Asthma Macrolide Antibiotics Adverse Reaction (Unknown, Verified 03/16/25 12:50) Unknown phenytoin Adverse Reaction (Unknown, Verified 03/16/25 12:50) Angioedema Tetracyclines Adverse Reaction (Unknown, Verified 03/16/25 12:50) Unknown Benzodiazepines Adverse Reaction (Verified 03/16/25 12:50) Seizure codeine Adverse Reaction (Verified 03/16/25 12:50) bronchospasm oxycodone Adverse Reaction (Verified 03/16/25 12:50) Anaphylaxis leflunomide Adverse Reaction (Intermediate, Uncoded 03/16/25 12:50) seizures Medication List - Last Reviewed 03/16/25 by NOELLE Solomon alendronate 70 mg PO QWEEK allopurinol 100 mg PO DAILY amlodipine 0 mg PO hydroxychloroquine 400 mg (2 x 200 mg) PO DAILY levetiracetam 250 mg PO DAILY levothyroxine (Synthroid) 150 mcg PO DAILY losartan 100 mg PO DAILY meloxicam 15 mg PO DAILY PRN NS [facility] Medical History Gout Peripheral vascular disease Vasculopathy Kidney stone on right side Ulcerative colitis Cervical cancer Difficulty speaking Noninfectious gastroenteritis Lupus erythematosus Mononeuritis Low back pain Sprain of foot Brachial (cervical) neuritis Gouty arthropathy Dysphagia Edema of extremity Joint pain of ankle and foot Hip pain Idiopathic peripheral autonomic neuropathy Status epilepticus, generalized convulsive Hyperlipemia Degenerative joint disease Systemic lupus erythematosus Inflammatory disorder of jaw Neck pain Mycosis Benign essential hypertension History of malignant neoplasm of thyroid Postoperative hypothyroidism Surgical History History of foot surgery History of kidney surgery H/O lithotripsy Status post total hip replacement, left Hx of total thyroidectomy History of total hysterectomy with bilateral salpingo-oophorectomy (BSO) Hx of appendectomy Hx of tonsillectomy Family History Mother Hyperlipidemia Thyroid cancer Maternal Grandmother Thyroid cancer Social History Household Members: None Alcohol intake: never Patient Tobacco Use Status: Never used Tobacco Current occupational status: retired Current occupation: used to work as a psychotherapist Physical Exam Vital Signs: BMI result Body Mass Index 29.2 Const Other: Well-nourished well-developed very friendly female awake alert and oriented x3 in no acute distress Extrem Other: Right knee examination shows a minimal effusion, palpable crepitus with range of motion, pain with range of motion, no instability Results Reviewed Results Reviewed: X-rays of the patient's right knee show joint space narrowing, subchondral sclerosis, no acute bony abnormalities Assessment & Plan Assessment & Plan (1) Osteoarthritis of right knee: Code(s): M17.11 - Unilateral primary osteoarthritis, right knee Category: Medical Plan Ms. Simpson presents with progressively worsening right knee pain due to osteoarthritis. I had a lengthy discussion with the patient regarding the treatment options. She wishes to hold off on surgery for as long as possible. I agree with this plan. I will see if the patient's insurance company will cover a viscosupplementation injection, such as Durolane, for her right knee. I will see her back once the injection is available. Feel free to call me at any time should questions regarding her orthopedic management arise. Thank you very much for asking me to see this very friendly patient. I spent 21 minutes in reviewing the patient's records and imaging studies, seeing the patient and documenting in the medical record. Orders: Orders XR knee RT 3V Today M25.561 - Pain in right knee Coding Level of Care Code New Pt Level 3 (33780) Complex EM visit Add On G2211 Diagnoses Osteoarthritis of right knee M17.11
[2025-03-16 12:50] VITALS: BMI 29.2
--- OUTSIDE RECORDS SUMMARY | 2025-03-16 13:41 | XMS_ITS | Data Portability ---
Author Organization [facility], [facility] Address [address] [place] [address] Assessment Encounter Date Assessment Date Assessment LastModified by Organization Details LastModified Time 10/21/2023 10/21/2023 I provided real -time medical direction via phone for this encounter, and was available for additional phone based assistance as needed. I have reviewed and agree with the Assessment and Plan as documented by the Mechanic/Welder. We discussed the diagnostic uncertainty of home visits and the risk associated with this..The patient given the opportunity to ask questions. Advised need for evaluation in the ED-given her list of allergies she will likely need intravenous antibiotics - i.e.: Vancomycin -I suggested clindamycin or doxycycline as a trial as the ciprofloxacin is not working and the patient has an appointment with [facility], with the sales agent casualty insurance( Dr. Mascorro) tomorrow. The patient states she does not think she can take either of those although they are not specifically listed on her allergy list. I did discuss w/ her PCP's covering provider (PCP is Sara Ramirez of [facility])Patient is understandably fearful with taking new or [...] to transfer. Report called to Kaylynn PABON [email or web address] Not available 10/22/2023 11:50:01 Plan of Treatment [...] Not available Not available Not available 06/29/2024 71312 RxNorm Not Available [facility] - production 4 04:13:46 9618 latex environme nt,medica tion Not available Not available Not available 06/29/2024 93740 91 RxNorm Not Available [facility] - production 4 04:13:46 9619 Product containin g penicilli n (product) medicatio n Not available Not available Not available 06/29/2024 26223 8001 SNOMED Not Available [facility] - production [...] SNOMED-CT Code Diagnosis ICD10 Code Diagnosis Note [id number] Valeria Maldonado MD Main - [facility] [address] [place] [address] 10/21/2023 16:44:05 10/22/2023 12:38:54 Cellulitis of right lower limb [id number] L03.115 right 2nd toe and foot/possi ble osteomyeli tis Health Concerns Section Related Observation LastModified by Organization Detai ls LastModified Time None Recorded Concern Status LastModified by Organization Details LastModified Time None Recorded Advance Directives Directive None Recorded Payers Insurance Date Sequence Insurance Name Policy Number Policy Cordero Covered Member ID Cordero Member ID Guarantor Name 10/21/[address] [facility] - DOS ON OR AFTER 2022 - DUAL ELIGIBLE - [facility] OPTIONS AND ONE CARE (MEDICARE REPLACEMENT/AD VANTAGE - HMO) Ludmila Simpson [id number] Ludmila Simpson Notes Date Note Type Note Provider Name and Address Organization Details Recorded Time 10/21/2023 text/html HPI: generalized convulsive epilepsy, lupus, idiopathic peripheral autonomic neuropathy ................... ................... ................... ................... ................... ................... ................... ........ CRC Nurse Triage Notes (Mary Jo Foster): Comments: HPI reviewed. No additional information required to process visit ................... ................... ................... ................... ................... ................... ................... ........ Mechanic/Welder Note From Michell Malik: Upon arrival pt [...] from the area. Pt states 5/10 pain. [facility] contacted and due to pts hx and allergies pt was recommended to be evaluated in the ER. Pt agreed and 911 was called. [facility] called hospital to alert of pts arrival. Care was transferred to EMS and call was then cleared. Mechanic/Welder Allergies: Azithromycin, Latex, Penicillin ................... ................... ................... ................... ................... ................... ................... ........ Disposition: FulfilledSEGMD:Bryanna ent with multiple significant allergies. In addition to above she has Bcmohrx-Covjd-Zwbuq , with chronic foot pain/numbness and tingling. She was prescribed ciprofloxacin for 7 days on 09/22 and then again a 14-day supply on 10/13/2023. The toe is worsening. The redness is spreading. Patient is unsure if he has had a fever as she is on ibuprofen udwzft-ijp-avxhi. She denies any history of diabetes, she denies chest pain, shortness of breath, nausea vomiting or calf pain Valeria Maldonado MD [address] [place] [address],[address], [place], [address], [facility] 10/22/2023 11:50:11 OBGyn Episode No OBEpisode recorded.
--- OUTSIDE RECORDS SUMMARY | 2025-03-16 13:41 | XMS_ITS | Clinical Summary ---
Author Organization [employer] Address [address] [place] [address] Care Team Providers Care Jewelry Polisher Name Role Phone Sivan Tom Unavailable Unavailable [...] Department Care Team Description 02/10/2025 Patient Outreach [facility] [address] [place] [address] [facility] Patient Outreach [facility] [address] [place] [address] [facility] 01/25/2025 11:00 AM EDT Office Visit [facility] [address] [place] [address] May Freitas DDS Defective dental hoahaoism (Primary Dx) from Last 3 Months Social [...] Description 04/19/2025 2:00 PM EDT Office Visit [facility] DENT[facility] [address] [place] [address] Sushma Lora Health Maintenance Due Date Last [...] Routine 01/25/2025 11:00 AM EDT Defective dental hoahaoism Full PROPHYLAXIS - ADULT Routine 024 2:00 PM EST PERIODIC ORAL EVALUATION - ESTABLISHED PATIENT Routine 08/19/2024 2:00 PM EST INTRAORAL - COMPLETE SERIES OF RADIOGRAPHIC IMAGES Routine 02/12/2024 11:00 AM EDT from Last 3 Months or Most Recently Relevant to Health Maintenance Insurance DENTAL - HSN FULL (MEDICAID) DENTAL - [employer] MEDICARE Care Teams Jewelry Polisher Relationship Specialty Start Date End Date Sivan Tom Mitchell [facility] Navigator [facility] 02/14/25
--- OUTSIDE RECORDS SUMMARY | 2025-03-16 13:41 | XMS_ITS | Clinical Summary ---
Author Organization [facility], Address [address] [address] Phone Care Team Providers Care Claims Sorter Name Role Phone Bertha Graff Primary Care Provider [phone] Allergies Active Allergy Reactions Criticality Noted Date [...] ongoing specialty care. Pt prefers to see [facility] doctors but does not have consistent transportation, [...] prescriptions will need to come from the driver license agent managing these medicaitons. Immunizations Immunization Administration Dates [...] age to complete this topic Insurance Medicare [facility] Medicaid [place] Care Teams Claims Sorter Relationship Specialty Start Date End Date Bertha Graff [address] [place] [address] PCP - General 02/19/22
--- OUTSIDE RECORDS SUMMARY | 2025-03-16 13:41 | XMS_ITS | Encounter Summary ---
Author Organization [facility] Address [address] [place] [address] Care Team Providers Care Commercial Sales Director Name Role Phone Sara Ramirez MD Primary Care Provider Encounter Details Date Type Department Care Team (Late st Contact Info) Description 10/04/2024 Lab Requisition [facility] - Main Lab [address] [facility] [place] [address] Jaya Bridges MD [address] [place], [place] [id number] Calculus of ureter Social History Tobacco Use [...] PM EST) WBC 8.0 4.8 - 10.8 K/[facility] LAB HEMETOLOGY METHOD 10/04/2024 7:27 PM EST [facility] RBC 5.10(H) 3.80 - 4.80 M/mcL LAB HEMETOLOGY METHOD 10/04/2024 7:27 PM EST [facility] Hemoglobin 15.4 11.5 - 16.0 g/dL LAB HEMETOLOGY METHOD 10/04/2024 7:27 PM [facility] Hematocrit 47.2(H) 35.0 - 47.0 % LAB HEMETOLOGY METHOD 10/04/2024 7:27 PM [facility] MCV 92.0 79.0 - 98.0 FL LAB HEMETOLOGY METHOD 10/04/2024 7:27 PM [facility] MCH 30.0 27.0 - 32.0 pcg LAB HEMETOLOGY METHOD 10/04/2024 7:27 PM [facility] MCHC 32.6 32.0 - 37.0 g/dL LAB HEMETOLOGY METHOD 10/04/2024 7:27 PM [facility] RDW 12.5 11.0 - 15.0 % LAB HEMETOLOGY METHOD 10/04/2024 7:27 PM [facility] Platelets 235 130 - 400 K/mcL LAB HEMETOLOGY METHOD 10/04/2024 7:27 PM [facility] MPV 9.2 7.0 - 11.0 FL LAB HEMETOLOGY METHOD 10/04/2024 7:27 PM [facility] NRBC 0.0 <1.0 % LAB HEMETOLOGY METHOD 10/04/2024 7:27 PM [facility] NRBC Absolute 0.00 <0.10 K/mcL LAB HEMETOLOGY METHOD 10/04/2024 7:27 PM [facility] Blood Venous blood specimen / Unknown 10/04/2024 2:21 PM EST 10/04/2024 5:54 PM EST us Jaya Bridges MD LAB BLOOD ORDERABLES Final Result [facility] [address] [place], [place] [address] [phone] documented in this encounter Visit Diagnoses Diagnosis Calculus of ureter documented in this encounter Care Teams Commercial Sales Director Relationship Specialty Start Date End Date Sara Ramirez MD [address] [place] [address] PCP - General 10/15/23 documented as of this encounter
== END 2025-03-16 13:12 | disposition home or self-care (01) ==
LOC: HO.HOS 12:47
PROVIDERS: PCP Family Medicine; Visit Provider Orthopaedic Surgery
DX: M17.11 Unilateral primary osteoarthritis, right knee (principal)
CPT/HCPCS: 99203; G2211

== ENCOUNTER → 2025-03-16 12:48 | Outpatient (BNV) | payer MEDICARE, MEDICAID, SELFPAY | PROVIDERS: Visit Provider Radiology Diagnostic Radiology | DX: M17.11 Unilateral primary osteoarthritis, right knee (principal) | CPT/HCPCS: 73562 ==

== ENCOUNTER 2025-03-22 11:11 | Outpatient (AMB) | payer MEDICARE, MEDICAID, SELFPAY ==
[2025-03-22 11:15] VITALS: BMI 29.2
--- NOTE | 2025-03-22 11:15 | A.OFFVIS_ITS ---
Vital Signs 03/22/25 11:15 Height 5 ft 6 in Weight 181 lb BMI 29.2 Intake Visit Reasons: follow up s/p Arterial US 03/10/25 Intake Note: follow up Arterial US 03/10/25, Pt states right LE knee pain is her main concern. Utilization Management Um Nurse Required: No Accompanied by: Self / Same As Patient Allergies azathioprine Allergy (Severe, Verified 03/22/25 11:18) Pancreatitis carbamazepine Adverse Reaction (Severe, Verified 03/22/25 11:18) Unknown diazepam (From Valium) Adverse Reaction (Severe, Verified 03/22/25 11:18) Anaphylaxis Iodinated Contrast Media Adverse Reaction (Severe, Verified 03/22/25 11:18) Angioedema, swelling, rash latex Adverse Reaction (Severe, Verified 03/22/25 11:18) Rash Penicillins Adverse Reaction (Severe, Verified 03/22/25 11:18) Anaphylaxis Sulfa (Sulfonamide Antibiotics) Adverse Reaction (Severe, Verified 03/22/25 11:18) Unknown azithromycin Adverse Reaction (Intermediate, Verified 03/22/25 11:18) Syncope, nausea duloxetine (From Cymbalta) Adverse Reaction (Intermediate, Verified 03/22/25 11:18) Dizziness gabapentin Adverse Reaction (Intermediate, Verified 03/22/25 11:18) Seizure hydrocodone Adverse Reaction (Intermediate, Verified 03/22/25 11:18) Tongue swelling hydromorphone (From Dilaudid) Adverse Reaction (Intermediate, Verified 03/22/25 11:18) Anaphylaxis leflunomide (From Arava) Adverse Reaction (Intermediate, Verified 03/22/25 11:18) Seizure cat pelt standardized allergenic ex Adverse Reaction (Unknown, Verified 03/22/25 11:18) Asthma Macrolide Antibiotics Adverse Reaction (Unknown, Verified 03/22/25 11:18) Unknown phenytoin Adverse Reaction (Unknown, Verified 03/22/25 11:18) Angioedema Tetracyclines Adverse Reaction (Unknown, Verified 03/22/25 11:18) Unknown Benzodiazepines Adverse Reaction (Verified 03/22/25 11:18) Seizure codeine Adverse Reaction (Verified 03/22/25 11:18) bronchospasm oxycodone Adverse Reaction (Verified 03/22/25 11:18) Anaphylaxis leflunomide Adverse Reaction (Intermediate, Uncoded 03/22/25 11:18) seizures HPI HPI follow up s/p Arterial US 03/10/25: Details: Very complex 74-year-old female presents for follow-up evaluation regarding peripheral vascular disease. In general she is quite confused about her overall care. She reports significant right knee discomfort. She had actually seen my PA regarding discoloration of the left 2nd toe which appears to have resolved. She has undergone noninvasive arterial testing. She was quite focused on her right knee discomfort and not having appropriate prosthetics after a hip replacement. Upon further discussion with her trying to inquire about her orthopedics evaluation and history which she was unaware about and did not even recall having a visit. She now presents to us for follow-up with noninvasive arterial testing. [facility] Medical History Gout Peripheral vascular disease Vasculopathy Kidney stone on right side Ulcerative colitis Cervical cancer Difficulty speaking Noninfectious gastroenteritis Lupus erythematosus Mononeuritis Low back pain Sprain of foot Brachial (cervical) neuritis Gouty arthropathy Dysphagia Edema of extremity Joint pain of ankle and foot Hip pain Idiopathic peripheral autonomic neuropathy Status epilepticus, generalized convulsive Hyperlipemia Degenerative joint disease Systemic lupus erythematosus Inflammatory disorder of jaw Neck pain Mycosis Benign essential hypertension History of malignant neoplasm of thyroid Postoperative hypothyroidism Surgical History History of foot surgery History of kidney surgery H/O lithotripsy Status post total hip replacement, left Hx of total thyroidectomy History of total hysterectomy with bilateral salpingo-oophorectomy (BSO) Hx of appendectomy Hx of tonsillectomy Family History Mother Hyperlipidemia Thyroid cancer Maternal Grandmother Thyroid cancer Social History Household Members: None Alcohol intake: never Patient Tobacco Use Status: Never used Tobacco Current occupational status: retired Current occupation: used to work as a psychotherapist Review of Systems Const All systems reviewed & are unremarkable except as noted in HPI and below Reports no additional complaints ENT Reports Normal hearing present Card Denies chest pain, Denies chest pain at rest, Denies chest pain with activity and Denies pedal edema Resp Denies cough GI Denies abdominal pain Musc Denies abnormal gait, Denies muscle cramps and Denies radiating pain into limb Skin/Breast Denies skin ulcer and Denies wounds Neuro Reports Normal hearing present and Denies abnormal gait Psych Reports no additional complaints Physical Exam Vital Signs: BMI result Body Mass Index 29.2 Const General: cooperative, healthy appearing and comfortable Orientation/consciousness: oriented to person, oriented to place and oriented to time HEENT Head: Yes normal to inspection Neck Neck: Yes normal visual inspection Carotids: no bruits Chest Chest palpation & inspection: normal inspection of the chest Resp Effort & Inspection: normal respiratory effort and able to speak in complete sen tences Auscultation: clear to auscultation bilaterally, no crackles, no rales, no rhonchi and no wheezes Cardio Other: Bilateral palpable dorsalis pedis pulses Rate: regular rate Rhythm: regular rhythm Heart sounds: S1 normal heart sound present and S2 normal heart sound present Bruits: no carotid bruits Peripheral pulses: Peripheral pulses 2+ throughout GI Inspection: Yes normal to inspection Skin Other: No skin lesions or toe ulcerations. Skin is warm well perfused less than 2 2nd capillary refill. Wounds: no wounds Hair: normal Neuro General: oriented to person, oriented to place and oriented to time Cranial nerves: Yes CN's II-XII intact bilaterally and Yes Normal hearing present Cognition (Neuro): normal cognition Motor exam (neuro): 5/5 motor strength present throughout Extrem Other: venous exam: No significant superficial varicosities or spider telangiectasias, minimal edema General: No clubbing, No cyanosis and No edema Psych Appearance: grossly normal Mental Status: mental status grossly normal Speech and movement: Normal speech and movement present Results Reviewed Results Reviewed: Noninvasive arterial testing dated 03/10/2025 demonstrates REJI on the right of 1.18 and on the left of 1.12. Written report and images were reviewed. I disagree with radiology report Assessment & Plan Assessment & Plan (1) PAD (peripheral artery disease): Code(s): I73.9 - Peripheral vascular disease, unspecified Category: Medical Plan: In short patient does not have any significant arterial disease. ABIs are within normal limits and she does have palpable pulses. Concern here is that she is quite confused about her overall medical care. When reviewing the records she actually did have an orthopedic evaluation by Dr. Francis approximately 5 days ago. She is awaiting authorization for injections. In addition she did have an x-ray performed here as well. This did demonstrate severe osteoarthritis. At the current time she is stable from a vascular perspective. She may require closer attention to better coordinate her medical care. She will follow up with us on an as-needed basis. Thank you for allowing us to assist in her care. If there are any questions or concerns please do not hesitate to contact us. Coding Level of Care Code Est Pt Level 4 (09738) Complex EM visit Add On G2211 Diagnoses PAD (peripheral artery disease) I73.9
--- OUTSIDE RECORDS SUMMARY | 2025-03-22 12:26 | XMS_ITS | Data Portability ---
Author Organization [employer] [facility] [employer] [facility] Address [address] [place] [address] Assessment Encounter Date Assessment Date Assessment LastModified by Organization Details LastModified Time 10/21/2023 10/21/2023 I provided real -time medical direction via phone for this encounter, and was available for additional phone based assistance as needed. I have reviewed and agree with the Assessment and Plan as documented by the Capacity Planning Analyst. We discussed the diagnostic uncertainty of home visits and the risk associated with this..The patient given the opportunity to ask questions. Advised need for evaluation in the ED-given her list of allergies she will likely need intravenous antibiotics - i.e.: Vancomycin -I suggested clindamycin or doxycycline as a trial as the ciprofloxacin is not working and the patient has an appointment with [facility], with the clinical unit educator( Dr. Mascorro) tomorrow. The patient states she does not think she can take either of those although they are not specifically listed on her allergy list. I did discuss w/ her PCP's covering provider (PCP is Sara Ramirez of [facility])Patient is understandably fearful with taking new or [...] to transfer. Report called to Kaylynn PABON [email or web address] Not available 10/22/2023 11:50:01 Plan of Treatment [...] Not available Not available Not available 06/29/2024 93079 RxNorm Not Available [facility] - production 4 04:13:46 9618 latex environme nt,medica tion Not available Not available Not available 06/29/2024 [id number] RxNorm Not Available [facility] - production 4 04:13:46 9619 Product containin g penicilli n (product) medicatio n Not available Not available Not available 06/29/2024 [id number] SNOMED Not Available [facility] - production [...] SNOMED-CT Code Diagnosis ICD10 Code Diagnosis Note [id number] Valeria Maldonado MD Main - [facility] [address] [place] [address] 10/21/2023 16:44:05 10/22/2023 12:38:54 Cellulitis of right lower limb [id number] L03.115 right 2nd toe and foot/possi ble osteomyeli tis Health Concerns Section Related Observation LastModified by Organization Detai ls LastModified Time None Recorded Concern Status LastModified by Organization Details LastModified Time None Recorded Advance Directives Directive None Recorded Payers Insurance Date Sequence Insurance Name Policy Number Policy Cordero Covered Member ID Cordero Member ID Guarantor Name 10/21/2023 1 [facility] - DOS ON OR AFTER 2022 - DUAL ELIGIBLE - [facility] OPTIONS AND ONE CARE (MEDICARE REPLACEMENT/AD VANTAGE - HMO) Ludmila Simpson [id number] Ludmila Simpson Notes Date Note Type Note Provider Name and Address Organization Details Recorded Time 10/21/2023 text/html HPI: generalized convulsive epilepsy, lupus, idiopathic peripheral autonomic neuropathy ................... ................... ................... ................... ................... ................... ................... ........ [facility] Nurse Triage Notes (Mary Jo Foster): Comments: HPI reviewed. No additional information required to process visit ................... ................... ................... ................... ................... ................... ................... ........ Capacity Planning Analyst Note From Michell Malik: Upon arrival pt [...] from the area. Pt states 5/10 pain. [facility] [place] and due to pts hx and allergies pt was recommended to be evaluated in the ER. Pt agreed and 911 was called. [facility] called hospital to alert of pts arrival. Care was transferred to EMS and call was then cleared. Capacity Planning Analyst Allergies: Azithromycin, Latex, Penicillin ................... ................... ................... ................... ................... ................... ................... ........ Disposition: FulfilledSEGMD:Bryanna ent with multiple significant allergies. In addition to above she has Dtsxctn-Hbhik-Ievki , with chronic foot pain/numbness and tingling. She was prescribed ciprofloxacin for 7 days on 09/22 and then again a 14-day supply on 10/13/2023. The toe is worsening. The redness is spreading. Patient is unsure if he has had a fever as she is on ibuprofen [id number]. She denies any history of diabetes, she denies chest pain, shortness of breath, nausea vomiting or calf pain Valeria Maldonado MD [address] [place] [address],[address], [place], [address], [employer] 10/22/2023 11:50:11 OBGyn Episode No OBEpisode recorded.
--- OUTSIDE RECORDS SUMMARY | 2025-03-22 12:26 | XMS_ITS | Clinical Summary ---
Author Organization [employer] Address [address] [place] [address] Care Team Providers Care Neck Skewer Name Role Phone Sivan Tom Unavailable Unavailable [...] Department Care Team Description 02/10/2025 Patient Outreach [facility] Case Management [address] [place] [address] [facility]/10/2025 Patient Outreach [facility] Case Management [address] [place] [address] [facility] 01/25/20[facility] 11:00 AM EDT Office Visit [facility] DENTAL [address] [place] [address] May Freitas DDS Defective dental cheondoism (Primary Dx) from Last 3 Months Social [...] 04/19/2025 2:00 PM EDT Office Visit [facility] DENTAL [address] [place] [address] Sushma Lora Health Maintenance Due Date Last [...] Routine 01/25/2025 11:00 AM EDT Defective dental cheondoism Full PROPHYLAXIS - ADULT Routine 024 2:00 PM EST PERIODIC ORAL EVALUATION - ESTABLISHED PATIENT Routine 08/19/2024 2:00 PM EST INTRAORAL - COMPLETE SERIES OF RADIOGRAPHIC IMAGES Routine 02/12/2024 11:00 AM EDT from Last 3 Months or Most Recently Relevant to Health Maintenance Insurance DENTAL - HSN FULL (MEDICAID) DENTAL - [employer] MEDICARE Care Teams Neck Skewer Relationship Specialty Start Date End Date Sivan Tom Mitchell [facility] Navigator Financial Counseling and Assistance Services 02/14/25
--- OUTSIDE RECORDS SUMMARY | 2025-03-22 12:26 | XMS_ITS | Encounter Summary ---
Author Organization [facility] Address [address] [place] [phone] Phone Care Team Providers Care Speech Therapy Teacher Name Role Phone Jone Irizarry MD Primary Care Provider [phone] Pcp, Unknown Unavailable Unavailable Jone Irizarry MD Unavailable [phone] Leigha Vincent RN Unavailable [phone] Marlyn Paul Unavailable [phone] Shy Arthur RN Unavailable [facility] VIDEO EDITING INTERN Primary Care Provider [phone] Maya Lewis MD Primary Care Provider + Maya Lewis MD Unavailable [phone] Bertha Graff MD Primary Care Provid er Jaqueline ValenciaNovember Karishma EMERGING SOLUTIONS EXECUTIVE Primary Care Pr ovider Rachel Srivastava EMERGING SOLUTIONS EXECUTIVE Primary Care Pro vider Sara Ramirez MD Primary Care Provider Maya Lewis MD Unavailable [phone] Encounter Details Date Type Department Care Team (Late st Contact Info) Description 01/19/2018 Procedure Pass [facility], [facility] - [address] [place] [address] Social History Tobacco Use Types Packs/Day Years Used Date Smoking Tobacco: Never Smokeless Tobacco: Never Alcohol Use Standard Drinks/Week Comments Yes 0 (1 standard drink = 0.6 oz pur e alcohol) Comments Unknown Sex and Gender Information Value Date Recorded Sex Assigned at Female 04/03/2019 7:00 PM EDT Legal Sex Female 7:39 PM EST Gender Identity Female 04/03/2019 7:00 PM EDT Sexual Orientation Straight 04/03/2019 7: 00 PM EDT documented as of this encounter Last Filed Vital Signs Vital Sign Reading Time Taken Comments Blood Pressure - - Pulse - - Temperature - - Respiratory Rate - - Oxygen Saturation - - Inhaled Oxygen Concentration - - Weight 116.6 kg (257 lb) 01/20/2018 7:01 PM EDT Height 170.2 cm (5' 7 ) 01/20/2018 7:01 PM EDT Body Mass Index 40.25 01/20/2018 7:01 PM EDT documented in this encounter Plan of Treatment Upcoming Encounters Date Type Department Care Team (Late st Contact Info) Description 05/23/2025 7:00 PM EDT Appointment [facility], Bone Density [address] [address] Vladimir Russo MD [address] [place] [address] [email or web address] documented as of this encounter Goals Goal Patient Goal Type Associated Problems Recent Progress Patient-Stated? Author Coordinate Care Lifestyle No Sada Newberry RN Note: 1. Assist patient in making appts with PCP and other providers as needed. 2. Encourage self-advocacy in meeting needs with providers. 3. Explore with patient any barriers to accessing care. Obtain & Scan Advance Care Plans Lifestyle No Sada Newberry RN Note: 1. Send HCP form to patient for her to update. 2. Ensure that HCP is entered into EMR. Explores Community and Social Support Lifestyle On track( 018 2:06 PM EDT) Sada Davis RN Note: 1. Ongoing assessment of community support/assistance, jose. with [facility], and intervene as needed. 2. Assess that needs are being met as intended through community agencies. 3. f/u with progress of MD appts documented as of this encounter Visit Diagnoses Not on filedocumented in this encounter Additional Health Concerns Infection Onset Date Last Indicated Resolved Time MRSA Comment:Infection Loaded by the Load Infection Utility 05/08/2015 05/08/2015 10/16/2022 1:[address] CoV-Risk 05/08/2021 05/10/2021 05/18/2021 1:23 AM EDT CoV-Exposed Comment:Recent close contact documented in the COVID-19 PCR/PRO order 05/08/2021 05/08/2021 05/23/2021 1:22 AM E DT documented as of this encounter Care Teams Speech Therapy Teacher Relationship Specialty Start Date End Date Jone Irizarry MD [address] [facility]. [address] [place] [address] [email or web address] PCP - General Family Medicine 12/26/15 06/24/21 [facility] CNP [address] [place] [address] [email or web address] PCP - General Family Medicine 06/25/21 07/23/21 Maya Lewis MD [address] [place] [phone] PCP - General Family Medicine 09/04/21 01/10/22 Bertha Graff MD [address] [address] [email or web address] PCP - General Family Medicine 01/11/22 06/03/22 Coco Ya NP [address] [facility] [address] [place] [address] [email or web address] PCP - General Family Medicine 07/09/22 11/12/22 Rachel Srivastava NP [address] [place] [address] [email or web address] PCP - General Nurse Practitioner 11/13/22 07/28/23 Sara Ramirez MD [address] [place] [address] PCP - General Family Medicine 07/29/23 Pcp, Unknown 03/01/14 06/30/22 Jone Irizarry MD [address] [place], [place] [address] [place] [phone] [email or web address] Insurance Assigned Provider 11/18/15 12/08/21 Leigha Vincent RN [address] [place] [address] [email or web address] [facility] 11/17/17 12/23/18 Marlyn Paul [address] [place] [address] [facility] Community Linoleum Layer Apprentice 07/14/18 09/17/18 Shy Arthur RN [address] [place] [phone] [email or web address] Nurse 08/03/18 08/03/18 Maya Lewis MD [address] [facility], 2nd [place] [address] [email or web address] Insurance Assigned Provider 12/08/21 05/08/22 Maya Lewis MD [address] [place] [address] [address] [place] [address] [email or web address] Insurance Assigned Provider 12/08/21 09/06/23 documented as of this encounter Additional Source Comments The information contained in this document represents components of the legal health record. It is not the complete legal health record.[facility]
--- OUTSIDE RECORDS SUMMARY | 2025-03-22 12:26 | XMS_ITS | Clinical Summary ---
Author Organization [facility], Address [address] [address] Phone Care Team Providers Care Log Deckman Name Role Phone Bertha Graff Primary Care Provider [phone] Allergies Active Allergy Reactions Criticality Noted Date [...] ongoing specialty care. Pt prefers to see [place] doctors but does not have consistent transportation, [...] prescriptions will need to come from the jig fitter managing these medicaitons. Immunizations Immunization Administration Dates [...] age to complete this topic Insurance Medicare [facility] Medicaid [place] Care Teams Log Deckman Relationship Specialty Start Date End Date Bertha Graff [address] [place] [address] PCP - General 02/19/22
--- OUTSIDE RECORDS SUMMARY | 2025-03-22 12:26 | XMS_ITS | Clinical Summary ---
Author Organization [facility] Address [address] [place] [address] Phone Care Team Providers Care Go Go Dancer Name Role Phone Sara Ramirez MD Primary Care Provider Social History Tobacco Use Types Packs/Day Years [...] 1998 Zoster Vaccines (1 of 2) 1998 Falls Risk Assessment 07/31/2022 Hepatitis C Screening 07/31/2022 Medicare Annual Wellness Visit 07/31/2022 Osteoporosis Screening (Bone Density Screening) 07/31/2022 Social Influencers of Health Screening 07/31/2022 RSV Immunization Adult Patie nts (1 - 1-dose 75+ series) 2023 Depression Screening 09/01/2024 Influenza Vaccine (#1) 2025 HIB Vaccines Aged Out No longer [...] patient's age to complete this topic Insurance [place] MEDIC[place] ADVANTAGE Care Teams Go Go Dancer Relationship Specialty Start Date End Date Sara Ramirez MD [address] [place] [phone] PCP - General 10/15/23
== END 2025-03-22 11:36 | disposition home or self-care (01) ==
LOC: HO.HVS 11:12
PROVIDERS: PCP Family Medicine; Visit Provider Surgery Vascular Surgery
DX: I73.9 Peripheral vascular disease, unspecified (principal)
CPT/HCPCS: 99214; G2211

== ENCOUNTER → 2025-03-22 11:11 | Outpatient (BNVA) | payer MEDICARE, MEDICAID, SELFPAY | PROVIDERS: PCP Family Medicine; Visit Provider Surgery Vascular Surgery | DX: Z71.2 Person consulting for explanation of examination or test findings (principal); I73.9 Peripheral vascular disease, unspecified | CPT/HCPCS: 99212 ==